=== PATIENT | female | born 1955 | race Caucasian/White ===

== ENCOUNTER 2019-11-13 08:25 | Inpatient (IN) | payer SELFPAY ==
[2019-11-13] MEDS ORDERED: PANTOPRAZOLE SODIUM 40 MG VIAL IV ONE (09:30)
[2019-11-13] MEDS ORDERED: MORPHINE SULFATE 10 MG/ML INJ IV ONE ×2 (09:31→12:01)
[2019-11-13] MEDS ORDERED: ONDANSETRON HCL INJ/PF 4 MG/2 ML SDV IV ONE (09:31)
[2019-11-13] MEDS ORDERED: NORMAL SALINE 500 ML IV ONE (09:32)
--- NOTE | 2019-11-13 09:46 | ER Document Report ---
ED GI/ - General Chief Complaint: Diarrhea Stated Complaint: DIARRHEA Time Seen by Provider: 11/13/19 09:03 Notes: CHIEF COMPLAINT: Upper abdominal pain for 1 week HPI: 64-year-old female presenting to the emergency department complaining of severe upper abdominal pain over the last week. Has also noticed dark tarry stools over the last 3 days. Patient reports decreased appetite with some nausea but no vomiting. No chest pain shortness of breath. Patient complains of generalized weakness over the last week ROS: See HPI - all other systems were reviewed and are otherwise negative Constitutional: no fever Eyes: no drainage, no blurred vision ENT: no runny nose, no sore throat Cardiovascular: no chest pain Resp: no SOB, no cough GI: no vomiting, positive diarrhea, positive abdominal pain : no dysuria Integumentary: no rash Allergy: no hives Musculoskeletal: no extremity pain or swelling Neurological: no numbness/tingling, no weakness MEDICATIONS: I agree with the patient medications as charted by the RN. ALLERGIES: I agree with the allergies as charted by the RN. PAST MEDICAL HISTORY/PAST SURGICAL HISTORY: Reviewed and agree as charted by RN. SOCIAL HISTORY: Reviewed and agree as charted by RN. FAMILY HISTORY: No significant familial comorbid conditions directly related to patient complaint EXAM: Reviewed vital signs as charted by RN. CONSTITUTIONAL: Alert and oriented and responds appropriately to questions. Ill-appearing; cachectic-nourished HEAD: Normocephalic; atraumatic EYES: PERRL; Conjunctivae clear, sclerae non-icteric ENT: normal nose; no rhinorrhea; moist mucous membranes but pale; pharynx without lesions noted, no uvula edema or deviation, no tonsillar hypertrophy, phonation normal NECK: Supple without meningismus; non-tender; no cervical lymphadenopathy, no masses CARD: Tachycardic; no murmurs, no clicks, no rubs, no gallops; symmetric distal pulses RESP: Normal chest excursion without splinting or tachypnea; breath sounds clear and equal bilaterally; no wheezes, no rhonchi, no rales, pulse oximetry 98% on room air not hypoxic ABD/GI: Normal bowel sounds; non-distended; soft, moderate tenderness to the epigastric region on palpation, no rebound, no guarding; no palpable org anomegaly or masses. Rectal: With female potato sorter present. Good rectal tone. Slight rash around t he rectum. There is dark tarry stool in the rectal vault that is Hemoccult positive no palpable masses BACK: The back appears normal and is non-tender to palpation, there is no CVA tenderness EXT: Normal ROM in all joints; non-tender to palpation; no cyanosis, no effusions, no edema SKIN: Pale color for age and race; warm; dry; good turgor; no acute lesions noted NEURO: Moves all extremities equally; Motor and sensory function intact PSYCH: The patient's mood and manner are appropriate. Grooming and personal hygiene are appropriate. MDM: 64-year-old tachycardic female presenting for upper abdominal plane suggest upper GI bleed, she has dark tarry stool that is Hemoccult positive. She has been taking BC powder to help with the pain of her upper abdomen. Reports has not been to a doctor in 40 years. Given the pain will obtain CT to evaluate for perforation or other surgical intervention needed but will plan to obtain screening labs including type and screen, will hydrate patient given the tachycardia. Plan to consult gastroenterology patient will likely need admission Past Medical History - Social History Smoking Status: Current Every Day Smoker Family History: Reviewed & Not Pertinent Physical Exam - Vital signs Vitals: Pulse Ox 98 11/13/19 09:00 Course - Re-evaluation Re-evalutation: 11/13/19 11:17 Patient is noted on CT to have probable metastatic cancer. Her troponin was 0.161. I did speak with Regulo flores the physician credit assistant for the hospitalist group. I did speak with Dr. Pennington the station supervisor. I did run the case by the station supervisor and he indicates that we should obtain a rapid COVID test and he will likely take the patient to the OR for endoscopy later today. Regulo flores indicates that Dr. Keller is the hospitalist taking the next call and I did speak with her I discussed the patient's history condition and findings. She states that she will not accept the patient until we have spoken with card iologist as well because of the mildly elevated troponin even though the patient has no chest pain or shortness of breath. 11/13/19 11:21 11/13/19 11:[address] Rosales, Cardiology. He indicates that he will follow the patient here in the hospital, there would be no intervention at this time. spoke with Dr. Keller, hospitalist. she will accept the patient 11/13/19 11:38 I did speak with the patient at length about her various diagnoses including the probability of metastatic cancer. Questions were answered. - Vital Signs Vital signs: Temp Pulse Resp BP Pulse Ox 98.0 F 126 H 20 133/87 H 98 11/13/19 09:17 11/13/19 09:01 11/13/19 09:01 11/13/19 10:30 11/13/19 09:01 - Laboratory Result Diagrams: 11/13/19 09:35 11/13/19 09:35 Laboratory results interpreted by me: 11/13/19 11/13/19 09:35 09:35 RBC 3.38 L Hgb 8.9 L Hct 27.5 L MCH 26.3 L RDW 18.1 H Lymph % (Auto) 8.7 L Absolute Neuts (auto) 8.4 H Seg Neutrophils % 81.6 H Sodium 131.4 L Chloride 94 L Creatinine 0.50 L Glucose 182 H AST 184 H ALT 52 H Alkaline Phosphatase 637 H Total Protein 6.1 L Albumin 3.3 L Discharge - Discharge Clinical Impression: Upper GI hemorrhage, Metastatic cancer, Elevated troponin I level Condition: Serious Disposition: ADMITTED INPATIENT Admitting Provider: Krishna (Hospitalist) Unit Admitted: [facility]
[2019-11-13 09:49] LABS: ABSOLUTE BASOPHILS # (AUTO) 0.1 10^3/uL (0.0-0.2); ABSOLUTE LYMPHOCYTES (AUTO) 0.9 10^3/uL (0.5-4.7); ABSOLUTE MONOCYTES (AUTO) 0.9 10^3/uL (0.1-1.4); ABSOLUTE NEUT (AUTO) 8.4 10^3/uL (1.7-8.2); BASOPHILS % (AUTO) 0.6 % (0-2); EOSINOPHILS % (AUTO) 0.1 % (0-6); HEMATOCRIT 27.5 % (36.0-47.0); HEMOGLOBIN 8.9 g/dL (12.0-15.5); LYMPHOCYTES % (AUTO) 8.7 % (13-45); MEAN CORPUSCULAR HEMOGLOBIN 26.3 pg (27.0-33.4); MEAN CORPUSCULAR HGB CONC 32.4 g/dL (32.0-36.0); MEAN CORPUSCULAR VOLUME 81 fl (80-97); PLATELET COUNT 395 10^3/uL (150-450); RED BLOOD COUNT 3.38 10^6/uL (3.72-5.28); RED CELL DISTRIBUTION WIDTH 18.1 % (11.5-14.0); SEGMENTED NEUTROPHILS % (AUTO) 81.6 % (42-78); TOTAL CELLS COUNTED % (AUTO) 100 %; WHITE BLOOD COUNT 10.3 10^3/uL (4.0-10.5)
[2019-11-13 09:54] LABS: INTERNATIONAL RATION (INR) 1.05; PROTHROMBIN TIME 13.7 SEC (11.4-15.4)
[2019-11-13 10:08] LABS: ALBUMIN 3.3 g/dL (3.5-5.0); ALKALINE PHOSPHATASE 637 U/L (38-126); ANION GAP 11 (5-19); ASPARTATE AMINO TRANSFERASE 184 U/L (14-36); BILIRUBIN,DIRECT 0.2 mg/dL (0.0-0.4); BILIRUBIN,TOTAL 0.7 mg/dL (0.2-1.3); BLOOD UREA NITROGEN 19 mg/dL (7-20); CARBON DIOXIDE 26 mmol/L (22-30); CHLORIDE 94 mmol/L (98-107); GLUCOSE 182 mg/dL (75-110); POTASSIUM 3.7 mmol/L (3.6-5.0); TOTAL PROTEIN 6.1 g/dL (6.3-8.2)
--- NOTE | 2019-11-13 11:01 | RADIOLOGY REPORT (SQ) ---
EXAM DESCRIPTION: CT ABD/PELVIS WITH IV ONLY IMAGES COMPLETED DATE/TIME: 11/13/2019 10:34 am REASON FOR STUDY: upper abd pain gi bleed COMPARISON: None. TECHNIQUE: CT scan of the abdomen and pelvis performed using helical scanning technique with dynamic intravenous contrast injection. No oral contrast. Images reviewed with lung, soft tissue, and bone windows. Reconstructed coronal and sagittal MPR images reviewed. Delayed images for evaluation of the urinary system also acquired. All images stored on PACS. All CT scanners at this facility use dose modulation, iterative reconstruction, and/or weight based d osing when appropriate to reduce radiation dose to as low as reasonably achievable (ALARA). [facility]: Dose Right [facility]: CareDose [facility]: Dose Right [facility]: Teradose 4D [facility]: MessageMe CONTRAST TYPE AND DOSE: contrast/concentration: Isovue 350.00 mg/ml; Total Contrast Delivered: 69.0 ml; Total Saline Delivered: 65.0 ml RENAL FUNCTION: BUN 19, creatinine 0.5 RADIATION DOSE: CT Rad equipment meets quality standard of care and radiation dose reduction techniq ues were employed. CTDIvol: 4.8 - 5.2 mGy. DLP: 522 mGy-cm.. LIMITATIONS: None. FINDINGS: LOWER CHEST: There is a mass in the right lower lobe anteriorly adjacent to the chest. Th ere is postobstructive airspace disease. Neoplasm is suspected. There is a ground-glass opacity in the left base posterior related to respiratory motion. LIVER: Numerous hepatic lesions consistent with metastatic disease. There is hepatomegaly. The live r measures over 23 cm in cranial caudal dimensions. SPLEEN: Normal size. No focal lesions. PANCREAS: No masses. No significant calcifications. No adjacent inflammation or peripancreatic fluid collections. Pancreatic duct not dilated. GALLBLADDER: No identified stones by CT criteria. No inflammatory changes to suggest cholecystitis. ADRENAL GLANDS: No significant masses or asymmetry. RIGHT KIDNEY AND URETER: No solid masses. No significant calcifications. No hydronephrosis or hyd roureter. LEFT KIDNEY AND URETER: No solid masses. No significant calcifications. No hydronephrosis or hydr oureter. AORTA AND VESSELS: No aneurysm. No dissection. Renal arteries, SMA, celiac without stenosis. RETROPERITONEUM: Scattered periaortic lymphadenopathy. Most likely metastatic. BOWEL AND PERITONEAL CAVITY: No masses or inflammatory changes. No free fluid or peritoneal masses. APPENDIX: Normal. PELVIS: No mass. No free fluid. Normal bladder. ABDOMINAL WALL: No masses. No hernias. BONES: Mild compression deformities at T11 and L2. There are lytic bone lesions at these levels cons istent with pathologic compression deformities. OTHER: No other significant finding. IMPRESSION: 1. Mass in the right lung base recommend cc chest for further evaluation. Neoplasm is thought to be most likely. 2. Hepatomegaly with widespread metastatic disease throughout the liver. 3. Aortic adenopathy suspicious for metastatic disease. 4. Probable bony metastatic disease. TECHNICAL DOCUMENTATION: JOB ID: [id number] Quality ID # [id number]: Final reports with documentation of one or more dose reduction techniques (e.g., Au tomated exposure control, adjustment of the mA and/or kV according to patient size, use of iterative reconstruction technique) 2010 [employer]- All Rights Reserved Reading location - IP/workstation name: [email or web address]
--- NOTE | 2019-11-13 13:15 | PDOC CONSULTATION ---
Consultation Consult Date: 11/13/19 Provider Consulted: SIMONE EDEN Consult reason:: black tarry stools History of Present Illness Admission Date/PCP: 11/13/19 11:54 History of Present Illness: BORIS MORALES is a 64 year old female I have been called to see this patient who present to the ED with GI bleeding consistent with melena accompanied by anemia a CT scan was done that showed probable metastatic disease work up needs to be done she will need admission and oncology should be contacted she will need an EGD to rule out possible gastric source I have asked the ED to get rapid Covid 19 testing done to facilitate her EGD to be done in the OR without need for intubation etc she will need to be admitted transfusion as needed start her on Protonix will need EGD after stabilization Social History Smoking Status: Current Every Day Smoker Electronic Cigarette use?: No Family History Family History: Reviewed & Not Pertinent Parental Family History Reviewed: Yes Children Family History Reviewed: Unknown Sibling(s) Family History Reviewed.: Unknown Review of Systems Constitutional: ABSENT: fever(s), headache(s), night sweats, weakness Eyes: ABSENT: visual disturbances Ears: ABSENT: hearing changes Nose, Mouth, and Throat: ABSENT: mouth pain, sore throat Respiratory: ABSENT: dyspnea, hemoptysis Gastrointestinal: PRESENT: nausea. ABSENT: hematochezia, melena Genitourinary: ABSENT: dysuria, hematuria Integumentary: ABSENT: lesions, pruritus Neurological: ABSENT: syncope, tingling, tremor(s), vertigo Endocrine: ABSENT: polydipsia, polyphagia, polyuria Hematologic/Lymphatic: ABSENT: easy bruising Physical Exam Vital Signs: Temp Pulse Resp BP Pulse Ox 98.0 F 126 H 20 133/87 H 98 11/13/19 09:17 11/13/19 09:01 11/13/19 09:01 11/13/19 10:30 11/13/19 09:01 Intake & Output 11/12/19 11/13/19 11/14/19 06:59 06:59 06:59 Intake Total 500 Balance 500 Weight 59.874 kg General appearance: PRESENT: mild distress, well-developed, well-nourished Head exam: PRESENT: atraumatic, normocephalic Eye exam: PRESENT: EOMI, PERRLA. ABSENT: nystagmus, scleral icterus Mouth exam: PRESENT: moist, neck supple Throat exam: PRESENT: tonsillogmegaly Neck exam: PRESENT: tenderness. ABSENT: meningismus, thyromegaly Respiratory exam: PRESENT: symmetrical, tachypnea. ABSENT: wheezes Cardiovascular exam: PRESENT: RRR, +S1, +S2 GI/Abdominal exam: PRESENT: normal bowel sounds, soft. ABSENT: Ayala's sign, organolmegaly, rebound, rigid Musculoskeletal exam: PRESENT: full ROM Neurological exam: PRESENT: alert, awake, CN II-XII grossly intact Skin exam: PRESENT: normal color. ABSENT: mottled, pallor, urticaria, vesicles Results Laboratory Results: 11/13/19 09:35 11/13/19 09:35 11/13/19 11/13/19 11/13/19 09:35 09:35 09:35 WBC 10.3 RBC 3.38 L Hgb 8.9 L Hct 27.5 L MCV 81 MCH 26.3 L MCHC 32.4 RDW 18.1 H Plt Count 395 Seg Neutrophils % 81.6 H Sodium 131.4 L Potassium 3.7 Chloride 94 L Carbon Dioxide 26 Anion Gap 11 BUN 19 Creatinine 0.50 L Est GFR ( Amer) > 60 Glucose 182 H Calcium 9.0 Total Bilirubin 0.7 AST 184 H Alkaline Phosphatase 637 H Total Protein 6.1 L Albumin 3.3 L Blood Type O POSITIVE Antibody Screen NEGATIVE 11/13/19 09:35 Troponin I 0.161 Impressions: Abdomen/Pelvis CT 11/13/19 09:31 IMPRESSION: 1. Mass in the right lung base recommend cc chest for further evaluation. Neoplasm is thought to be most likely. 2. Hepatomegaly with widespread metastatic disease throughout the liver. 3. Aortic adenopathy suspicious for metastatic disease. 4. Probable bony metastatic disease. Assessment & Plan - Diagnosis (1) Upper GI hemorrhage Plan: admit to the hospitalist service transfuse as necessary EGD once stabilized and Covid status known start on PPI Risks, benefits and alternative are explained further recommendations get oncology consult - Time Time Spent: 50 to 70 Minutes
[2019-11-13] MEDS ORDERED: ONDANSETRON 4 MG TAB.RAPDIS PO PRN (13:51)
[2019-11-13] MEDS ORDERED: OXYCODONE-ACETAMINOPHEN 5-325 MG TABLET PO PRN (13:51)
[2019-11-13] MEDS ORDERED: IPRATROPIUM/ALBUTEROL 0.5-2.5 MG/3 ML AMPUL NEB PRN (13:51)
[2019-11-13] MEDS ORDERED: ACETAMINOPHEN 325 MG TABLET PO PRN (13:51)
--- NOTE | 2019-11-13 15:04 | PDOC CONSULTATION ---
Consultation Consult Date: 11/13/19 Attending physician:: ANN MARIE CONTRERAS Provider Consulted: DEBBIE GOMEZ Consult reason:: Elevated troponin. History of Present Illness Admission Date/PCP: 11/13/19 11:54 History of Present Illness: BORIS MORALES is a 64 year old female without known cardiac history, no known medical history, smoker of 1 pack/day since age 16 years and no family history of premature coronary artery disease who is consulted to our service for evalu ation of elevated troponin. The patient had been having abdominal pain since June 2019. Her pain has gotten worse over time and approximately 3 days ago she noticed black/tarry stools. She came to the emergency room because her pain is now unbearable. Unfortunately her CT scan is very concerning for metastatic cancer. She does complain of some shortness of breath that she attributes to he r abdominal pain as it makes it worse but specifically denied chest pain, palpitations, syncope, presyncope and diaphoresis. She also denied hematemesis. Physical exam on 11/13/2019: GENERAL: Pleasant and conversational. Oriented x3 with normal mood. Not in acute distress. Well groomed and well developed. Pale, thin, appears chronically ill. HEENT: Normocephalic, atraumatic. Pupils equal. Sclerae anicteric. Oropharynx moist. NECK: No JVD. No carotid bruits. LUNGS: Clear to auscultation bilaterally. Normal respiratory effort without the use of accessory muscles or intercostal retractions. CARDIOVASCULAR: Mildly tachycardic. Regular rate and rhythm, normal S1 and S2 without murmurs, rubs, or gallops. PMI not displaced. ABDOMEN: Not examined due to pain. EXTREMITIES: No edema, no cyanosis, no clubbing. +2 pulses femoral and pedal pulses bilaterally. SKIN: No lesions or rashes. MUSCULOSKELETAL: No chest tenderness to palpation. NEUROLOGIC: Nonfocal. No gross sensory or motor deficits bilateral upper or lower extremities. Past Surgical History Past Surgical History: Reports: None Social History Smoking Status: Current Every Day Smoker Electronic Cigarette use?: No Frequency of Alcohol Use: None Hx Recreational Drug Use: No Drugs: None - Advance Directive Resuscitation Status: Full Code - She will like to consider resuscitation for no w she will be full code status Family History Family History: Malignancy - Mother had ovarian cancer and father from non- Hodgkin's lymphoma Parental Family History Reviewed: Yes Children Family History Reviewed: Yes Sibling(s) Family History Reviewed.: Yes Physical Exam Vital Signs: Temp Pulse Resp BP Pulse Ox 98.0 F 126 H 21 H 133/87 H 96 11/13/19 09:17 11/13/19 09:01 11/13/19 13:00 11/13/19 10:30 11/13/19 13:00 Intake & Output 11/12/19 11/13/19 11/14/19 06:59 06:59 06:59 Intake Total 500 Balance 500 Weight 59.874 kg Results Laboratory Results: 11/13/19 09:35 11/13/19 09:35 11/13/19 11/13/19 11/13/19 09:35 09:35 09:35 WBC 10.3 RBC 3.38 L Hgb 8.9 L Hct 27.5 L MCV 81 MCH 26.3 L MCHC 32.4 RDW 18.1 H Plt Count 395 Seg Neutrophils % 81.6 H Sodium 131.4 L Potassium 3.7 Chloride 94 L Carbon Dioxide 26 Anion Gap 11 BUN 19 Creatinine 0.50 L Est GFR ( Amer) > 60 Glucose 182 H Calcium 9.0 Total Bilirubin 0.7 AST 184 H Alkaline Phosphatase 637 H Total Protein 6.1 L Albumin 3.3 L Blood Type O POSITIVE Antibody Screen NEGATIVE 11/13/19 09:35 Troponin I 0.161 Impressions: Abdomen/Pelvis CT 11/13/19 09:31 IMPRESSION: 1. Mass in the right lung base recommend cc chest for further evaluation. Neoplasm is thought to be most likely. 2. Hepatomegaly with widespread metastatic disease throughout the liver. 3. Aortic adenopathy suspicious for metastatic disease. 4. Probable bony metastatic disease. 11/13/19 09:35 11/13/19 09:35 MCV 81 fl (80-97) 11/13/19 09:35 MCH 26.3 pg (27.0-33.4) L 11/13/19 09:35 MCHC 32.4 g/dL (32.0-36.0) 11/13/19 09:35 RDW 18.1 % (11.5-14.0) H 11/13/19 09:35 Seg Neutrophils % 81.6 % (42-78) H 11/13/19 09:35 Chloride 94 mmol/L (98-107) L 11/13/19 09:35 Carbon Dioxide 26 mmol/L (22-30) 11/13/19 09:35 Anion Gap 11 (5-19) 11/13/19 09:35 Est GFR ( Amer) > 60 (>60) 11/13/19 09:35 Glucose 182 mg/dL (75-110) H 11/13/19 09:35 Calcium 9.0 mg/dL (8.4-10.2) 11/13/19 09:35 Total Bilirubin 0.7 mg/dL (0.2-1.3) 11/13/19 09:35 AST 184 U/L (14-36) H 11/13/19 09:35 Alkaline Phosphatase 637 U/L (38-126) H 11/13/19 09:35 Total Protein 6.1 g/dL (6.3-8.2) L 11/13/19 09:35 Albumin 3.3 g/dL (3.5-5.0) L 11/13/19 09:35 Blood Type O POSITIVE 11/13/19 09:35 Antibody Screen NEGATIVE 11/13/19 09:35 11/13/19 09:35 Troponin I 0.161 Assessment & Plan - Diagnosis (1) Elevated troponin I level Is this a current diagnosis for this admission?: Yes Plan: Although the patient has risk factors for coronary artery disease, her presentation is not consistent with acute coronary syndrome but likely a type II myocardial infarction secondary to her tachycardia and anemia. Unfortunately she appears to have metastatic cancer with a mass in the lung as well as multiple lesions in the liver and bone. To complicate matters, she has a GI bleed therefore she is not a candidate for anticoagulation or any other invasive cardiovascular approaches. Fortunately enough, she is hemodynamically stable and free of angina and angina equivalents. Recommendations: -Cardiac telemetry. -Supportive measures. -Continue to trend cardiac troponins. -Echocardiogram to assess for structural heart disease and regional wall motion abnormalities. -We will continue to follow with you. (2) GI bleed Qualifiers: GI bleed type/associated pathology: melena Qualified Code(s): K92.1 - Melena Is this a current diagnosis for this admission?: Yes Plan: The patient is anemic and with black tarry/stools consistent with a GI bleed. She had already been evaluated by the GI service and will undergo colonoscopy as well as EGD in the near future. Further management of recommendations per GI team.
[2019-11-13] MEDS: OXYCODONE-ACETAMINOPHEN 5-325 MG TABLET PO PRN (17:14)
[2019-11-13] MEDS: MORPHINE SULFATE 10 MG/ML INJ IV PRN (20:05)
--- NOTE | 2019-11-13 20:43 | XCELERA REPORT ---
[address] [address] Transthoracic Echocardiogram Report Name: BORIS MORALES Age: 64 yrs Gender: Female : 1955 Patient Status: Inpatient Patient Location: [address] [place] [address] Study Date: 11/13/2019 05:19 PM Height: 70 in Weight: 132 lb BSA: 1.7 m2 Procedure: A complete two-dimensional transthoracic echocardiogram was performed (2D, M-mode, spectral and color flow Doppler). The study was technically difficult with many images being suboptimal in quality. Images from the parasternal window were difficult to obtain and are suboptimal in quality. Reason For Study: Type II OK Ordering Physician: DEBBIE GOMEZ Performed By: Gabriela Piedra Interpretation Summary The patient was in sinus tachycardia during portions of the study. The left ventricle is normal in size, thickness and function. Left ventricle is hyperdynamic. The Ejection Fraction estimate is >70%. Doppler measurements suggest impaired left ventricular relaxation, which is associated with grade I/IV or mild diastolic dysfunction. The left ventricular wall motion is normal. Mild MAC without stenosis. Mild MR, mild AI. No accurate doppler interrogation of the tricuspid valve was possible as the valve was not well visualized. Mildly calcified aortic valve. Mild aortic stenosis with a peak velocity of 2.5 m/s and mean gradient of 12 mmHg. No prior studies for comparison. MMode/2D Measurements & Calculations RVDd: 3.0 cm LVIDd: 4.4 cm FS: 31.2 % Ao root diam: 3.0 cm IVSd: 1.0 cm LVIDs: 3.0 cm EDV(Teich): 88.7 ml Ao root area: 7.1 cm2 LVPWd: 0.99 cm ESV(Teich): 36.2 ml LA dimension: 2.8 cm EF(Teich): 59.2 % LVOT diam: 1.8 cm LVOT area: 2.5 cm2 Doppler Measurements & Calculations MV E max yordy: MV P1/2t max yordy: Ao V2 max: LV V1 max P.0 cm/sec 118.7 cm/sec 251.9 cm/sec 11.8 mmHg MV A max yordy: MV P1/2t: 38.4 msec Ao max PG: LV V1 mean P.3 cm/sec MVA(P1/2t): 5.7 cm2 25.4 mmHg 6.4 mmHg MV E/A: 0.87 MV dec slope: Ao V2 mean: LV V1 max: 165.9 cm/sec 171.5 cm/sec 906.2 cm/sec2 Ao mean PG: LV V1 mean: MV dec time: 0.15 sec 12.3 mmHg 117.4 cm/sec Ao V2 VTI: 44.2 cm LV V1 VTI: 32.5 cm SAIRA(I,D): 1.8 cm2 SAIRA(V,D): 1.7 cm2 SV(LVOT): 80.8 ml PA V2 max: MV P1/2t-pr_phl: 82.1 cm/sec 38.4 msec PA max P.7 mmHg Left Ventricle The left ventricle is normal in size, thickness and function. Left ventricle is hyperdynamic. The Ejection Fraction estimate is >70%. Doppler measurements suggest impaired left ventricular relaxation, which is associated with grade I/IV or mild diastolic dysfunction. The left ventricular wall motion is normal. Right Ventricle The right ventricle is normal in size and function. There is mild to moderate right ventricular hypertrophy. The right ventricular systolic function is normal. Atria The right atrium is normal. The left atrial size is normal. The interatrial septum is intact with no evidence for an atrial septal defect. Mitral Valve There is mild mitral annular calcification. There is no evidence of mitral valve prolapse. There is no mitral valve stenosis. There is a mild amount of mitral regurgitation. Aortic Valve The aortic valve is mildly calcified. The aortic valve opens well. There is mild aortic stenosis. There is a mild amount of aortic regurgitation. Tricuspid Valve The tricuspid valve is not well visualized secondary to technical limitations. There is no tricuspid valve prolapse. There is no tricuspid stenosis. Doppler interrogation inadequate as the valve was not well visualized. Pulmonic Valve The pulmonic valve is not well visualized. There is no pulmonic valvular stenosis. There is no pulmonic valvular regurgitation. Effusions There is no pericardial effusion. There is no pleural effusion. : DEBBIE GOMEZ, Debbie
[2019-11-13] MEDS: PANTOPRAZOLE SODIUM 40 MG VIAL IV SCH (21:04)
[2019-11-14 05:21] LABS: MEAN CORPUSCULAR HEMOGLOBIN 26.4 pg (27.0-33.4); MEAN CORPUSCULAR HGB CONC 32.6 g/dL (32.0-36.0); MEAN CORPUSCULAR VOLUME 81 fl (80-97); PLATELET COUNT 346 10^3/uL (150-450); RED BLOOD COUNT 2.97 10^6/uL (3.72-5.28); WHITE BLOOD COUNT 11.3 10^3/uL (4.0-10.5)
[2019-11-14 05:26] LABS: HEMOGLOBIN 7.8 g/dL (12.0-15.5)
[2019-11-14 05:42] LABS: ANION GAP 8 (5-19); BLOOD UREA NITROGEN 16 mg/dL (7-20); CALCIUM 8.9 mg/dL (8.4-10.2); CARBON DIOXIDE 26 mmol/L (22-30); CHLORIDE 98 mmol/L (98-107); GLUCOSE 95 mg/dL (75-110); POTASSIUM 4.1 mmol/L (3.6-5.0)
--- NOTE | 2019-11-14 08:39 | EKG REPORT ---
SEVERITY:- OTHERWISE NORMAL ECG - SINUS TACHYCARDIA : Confirmed by: Amina Guillen 14-Nov-2019 08:38:59
--- NOTE | 2019-11-14 09:01 | PDOC CONSULTATION ---
Consultation Consult Date: 11/14/19 Attending physician:: ANN MARIE CONTRERAS Provider Consulted: EUNICE ETIENNE Consult reason:: Liver lesions, lung lesions, anemia History of Present Illness Admission Date/PCP: 11/13/19 11:54 Patient complains of: SOB, CP, weakness History of Present Illness: BORIS MORALES is a 64 year old female presenting per notes with h/o weakness, hematochezia, ultimately was having BRBPR and that's what brought her in, has 15# wt loss, poor po intake and RUQ and LUQ pain, was having diarrhea also, feeling poorly x 4 months now. Found to have CT a/p w/ multiple liver lesions, and R lung lesion. GI has been consulted, recommended need for scope soon but given COVID restrictions, did not feel it has to be done emergently. Past Medical History Cardiac Medical History: Reports: None Psychiatric Medical History: Denies: Depression Past Surgical History Past Surgical History: Reports: None Social History Smoking Status: Current Every Day Smoker Cigarettes Packs Per Day: 1 Electronic Cigarette use?: No Number of Years Smokin Last Time Smoked: t Frequency of Alcohol Use: None Hx Recreational Drug Use: No Drugs: None Hx Prescription Drug Abuse: No - Advance Directive Resuscitation Status: Full Code - She will like to consider resuscitation for now she will be full code status Family History Family History: Malignancy - Mother had ovarian cancer and father from non- Hodgkin's lymphoma Parental Family History Reviewed: Yes Children Family History Reviewed: Yes Sibling(s) Family History Reviewed.: Yes Medication/Allergy Home Medications: Aspirin/Caffeine [Bc Powder Packet] 1 pkt PO TIDP PRN 11/13/19 Allergies/Adverse Reactions: No Known Allergies Allergy (Verified 11/13/19 15:08) Physical Exam Vital Signs: Temp Pulse Resp BP Pulse Ox 98.2 F 108 H 16 121/66 92 11/14/19 03:58 11/14/19 08:03 11/14/19 08:03 11/14/19 03:58 11/14/19 08:03 Intake & Output 11/13/19 11/14/19 11/15/19 06:59 06:59 06:59 Intake Total 1115 Balance 1115 Weight 57.5 kg Results Laboratory Results: 11/14/19 05:09 11/14/19 05:09 11/13/19 11/13/19 11/13/19 09:35 09:35 09:35 WBC 10.3 RBC 3.38 L Hgb 8.9 L Hct 27.5 L MCV 81 MCH 26.3 L MCHC 32.4 RDW 18.1 H Plt Count 395 Seg Neutrophils % 81.6 H Sodium 131.4 L Potassium 3.7 Chloride 94 L Carbon Dioxide 26 Anion Gap 11 BUN 19 Creatinine 0.50 L Est GFR ( Amer) > 60 Glucose 182 H Calcium 9.0 Magnesium Total Bilirubin 0.7 AST 184 H Alkaline Phosphatase 637 H Total Protein 6.1 L Albumin 3.3 L Blood Type O POSITIVE Antibody Screen NEGATIVE 11/14/19 11/14/19 05:09 05:09 WBC 11.3 H RBC 2.97 L Hgb 7.8 L Hct 24.0 L MCV 81 MCH 26.4 L MCHC 32.6 RDW 18.0 H Plt Count 346 Seg Neutrophils % Sodium 131.5 L Potassium 4.1 Chloride 98 Carbon Dioxide 26 Anion Gap 8 BUN 16 Creatinine 0.45 L Est GFR ( Amer) > 60 Glucose 95 Calcium 8.9 Magnesium 2.0 Total Bilirubin AST Alkaline Phosphatase Total Protein Albumin Blood Type Antibody Screen 11/13/19 11/13/19 11/13/19 09:35 14:57 20:07 Troponin I 0.161 0.166 0.152 Impressions: Abdomen/Pelvis CT 11/13/19 09:31 IMPRESSION: 1. Mass in the right lung base recommend cc chest for further evaluation. Neoplasm is thought to be most likely. 2. Hepatomegaly with widespread metastatic disease throughout the liver. 3. Aortic adenopathy suspicious for metastatic disease. 4. Probable bony metastatic disease. Status: Image reviewed by me Assessment & Plan - Diagnosis (1) Metastatic cancer Is this a current diagnosis for this admission?: Yes Plan: Does appear to have metastatic disease. Ordered CT chest and CT guided liver bx today. Had discussion w/ pt, hospitalist team and nursing about plans. Probable primary is lung but colon primary possible also w/ hematochezia/GI complaints so will need colonoscopy/egd at some point. (2) Anemia Qualifiers: Anemia type: iron deficiency Iron deficiency anemia type: chronic blood loss Qualified Code(s): D50.0 - Iron deficiency anemia secondary to blood loss (chronic) Is this a current diagnosis for this admission?: Yes Plan: Most likely going to be iron def from blood loss anemia. Iron studies/B12/folate sent today. Gave orders for 2 units PRBC also. - Time Time Spent: Greater than 70 Minutes
--- NOTE | 2019-11-14 09:26 | PDOC H&P ---
History of Present Illness Admission Date/PCP: 11/13/19 11:54 Patient complains of: presents emergency room with abdominal pain which apparently has been ongoing for about 3 months. She also complained of back pain. She started noticing dark stool about 3 days ago. She decided to come to the emergency room as the pain was excruciating and she could not tolerate it anymore. History of Present Illness: BORIS MORALES is a 64 year old female As part of our work-up in the emergency room patient had a CT scan of the abdomen done which revealed a mass in the right lung base with neoplasm thought to be most likely. She also has hepatomegaly with widespread metastatic disease throughout the liver as well as aortic adenopathy and probable bony metastatic disease. Patient does admit to generalized aches and pain which has been progressively getting worse over the last 5 months or so. She is also lost weight. She has a 35+ year smoking history, smoking 1 pack daily. Patient also has not really seen a physician in years. She said she is really had no need to. She did not get her symptoms checked out earlier as she really did not know what was going on. Patient denied any overt bleeding except for the dark stool that she noticed 3 days ago according to her. Most see the accompanying planes appear to be the back pain as well as a abdominal pain to a lesser degree and a generalized pain. Hemoglobin of 8.7 today and noted also to have an elevated troponin. She also complains of some chest pain which waxes and wanes currently chest pain-free she has been seen by personal financial representative and plan is for an EGD once stabilized. Cardiology consultation has also been sought due to her elevated troponin which likely is due to her anemia. Patient also tells me that she sometimes gets palpitations although she is currently in sinus tachycardia. Oncology consult will also be obtained Past Medical History Medical History: None Past Surgical History Past Surgical History: Reports: None Social History Information Source: Patient Smoking Status: Current Every Day Smoker Electronic Cigarette use?: No Frequency of Alcohol Use: None Hx Recreational Drug Use: No Drugs: None - Advance Directive Resuscitation Status: Full Code - She will like to consider resuscitation for now she will be full code status Family History Family History: Malignancy - Mother had ovarian cancer and father from non- Hodgkin's lymphoma Parental Family History Reviewed: Yes Children Family History Reviewed: No Sibling(s) Family History Reviewed.: No Medication/Allergy Home Medications: Aspirin/Caffeine [Bc Powder Packet] 1 pkt PO TIDP PRN 11/13/19 Allergies/Adverse Reactions: No Known Allergies Allergy (Verified 11/13/19 15:08) Review of Systems All systems: reviewed and no additional remarkable complaints except as stated Breasts: PRESENT: other - No breast mass Cardiovascular: PRESENT: chest pain, palpitations. ABSENT: orthropnea Respiratory: ABSENT: cough, dyspnea, hemoptysis Gastrointestinal: PRESENT: abdominal pain. ABSENT: nausea, vomiting Genitourinary: ABSENT: dysuria, hematuria Musculoskeletal: PRESENT: back pain Neurological: PRESENT: as per HPI Endocrine: PRESENT: as per HPI Physical Exam Vital Signs: Temp Pulse Resp BP Pulse Ox 98.0 F 126 H 21 H 133/87 H 96 11/13/19 09:17 11/13/19 09:01 11/13/19 13:00 11/13/19 10:30 11/13/19 13:00 Intake & Output 11/12/19 11/13/19 11/14/19 06:59 06:59 06:59 Intake Total 500 Balance 500 Weight 59.874 kg General appearance: PRESENT: no acute distress, other - Somewhat chronically ill looking but not toxic Head exam: PRESENT: atraumatic, normocephalic Respiratory exam: PRESENT: clear to auscultation erasmo, unlabored. ABSENT: rhonchi Cardiovascular exam: PRESENT: +S1, +S2, tachycardia. ABSENT: bradycardia Breast: ABSENT: Tenderness, Mass/Lump GI/Abdominal exam: PRESENT: organolmegaly, tenderness - vague. ABSENT: ascites Rectal exam: PRESENT: deferred Neurological exam: PRESENT: alert, awake, oriented to person, oriented to place, oriented to time, oriented to situation, CN II-XII grossly intact. ABSENT: motor sensory deficit Results Laboratory Results: 11/13/19 09:35 11/13/19 09:35 11/13/19 11/13/19 11/13/19 09:35 09:35 09:35 WBC 10.3 RBC 3.38 L Hgb 8.9 L Hct 27.5 L MCV 81 MCH 26.3 L MCHC 32.4 RDW 18.1 H Plt Count 395 Seg Neutrophils % 81.6 H Sodium 131.4 L Potassium 3.7 Chloride 94 L Carbon Dioxide 26 Anion Gap 11 BUN 19 Creatinine 0.50 L Est GFR ( Amer) > 60 Glucose 182 H Calcium 9.0 Total Bilirubin 0.7 AST 184 H Alkaline Phosphatase 637 H Total Protein 6.1 L Albumin 3.3 L Blood Type O POSITIVE Antibody Screen NEGATIVE 11/13/19 09:35 Troponin I 0.161 EKG Comments: Sinus tachycardia Impressions: Abdomen/Pelvis CT 11/13/19 09:31 IMPRESSION: 1. Mass in the right lung base recommend cc chest for further evaluation. Neoplasm is thought to be most likely. 2. Hepatomegaly with widespread metastatic disease throughout the liver. 3. Aortic adenopathy suspicious for metastatic disease. 4. Probable bony metastatic disease. Assessment and Plan - Diagnosis (1) Anemia Qualifiers: Anemia type: iron deficiency Iron deficiency anemia type: chronic blood loss Qualified Code(s): D50.0 - Iron deficiency anemia secondary to blood loss (chronic) Is this a current diagnosis for this admission?: Yes Plan: Likely secondary to malignancy. GI has been consulted. Patient will benefit from endoscopy. At this point she does not need any transfusion but will continue to monitor and transfuse as needed (2) Elevated troponin I level Is this a current diagnosis for this admission?: Yes Plan: Will monitor troponin. EKG shows no acute changes. Cardiology has been consulted (3) Metastatic cancer Is this a current diagnosis for this admission?: Yes Plan: From image findings patient appears to have diffuse malignancy unfortunately. Oncology has been consulted and will follow-up with their recommendations (4) Upper GI hemorrhage Is this a current diagnosis for this admission?: Yes Plan: Likely chronic and related to underlying medical condition - Time Time Spent with patient: 35 or more minutes Medications reviewed and adjusted accordingly: Yes Anticipated discharge: Home - Inpatient Certification Based on my medical assessment, after consideration of the patient's comorbidities, presenting symptoms, or acuity I expect that the services needed warrant INPATIENT care.: Yes Medical Necessity: Risk of Complication if Not Cared For in Hospital, Risk of Diagnosis Which Will Require Inpatient Eval/Care/Monitoring
[2019-11-14] MEDS: DOCUSATE SODIUM 100 MG CAPSULE PO SCH (10:05)
[2019-11-14] MEDS: PANTOPRAZOLE SODIUM 40 MG VIAL IV SCH ×2 (10:09→22:13)
[2019-11-14] MEDS: MORPHINE SULFATE 10 MG/ML INJ IV PRN (10:09)
[2019-11-14 11:10] LABS: ABSOLUTE RETICS # 0.131 10^6/uL (0.028-0.122)
[2019-11-14 11:22] LABS: INTERNATIONAL RATION (INR) 1.11; PROTHROMBIN TIME 14.3 SEC (11.4-15.4)
[2019-11-14 11:23] LABS: PARTIAL THROMBOPLASTIN TIME 29.7 SEC (23.5-35.8)
--- NOTE | 2019-11-14 11:24 | PDOC PROGRESS REPORT ---
Subjective Progress Note for:: 11/14/19 Subjective:: BORIS MORALES is a 64 year old female without known cardiac history, no known medical history, smoker of 1 pack/day since age 16 years and no family history of premature coronary artery disease who is consulted to our service for evaluation of elevated troponin. The patient had been having abdominal pain since June 2019. Her pain has gotten worse over time and approximately 3 days ago she noticed black/tarry stools. She came to the emergency room because her pain is now unbearable. Unfortunately her CT scan is very concerning for metastatic cancer. She does complain of some shortness of breath that she attributes to her abdominal pain as it makes it worse but specifically denied chest pain, palpitations, syncope, presyncope and diaphoresis. She also denied hematemesis. 11/14/2019: The patient is found sitting up at the edge of her bed eating breakfast. She continues to deny chest pain, shortness of breath, ABDALLA, PND, lower extremity edema, palpitations, syncope and presyncope. Her telemetry demonstrated sinus tachycardia with 2 episodes of supraventricular tachycardia lasting several seconds. Physical exam on 11/14/2019: GENERAL: Pleasant and conversational. Oriented x3 with normal mood. Not in acute distress. Well groomed and well developed. Pale, thin, appears chronically ill. HEENT: Normocephalic, atraumatic. Pupils equal. Sclerae anicteric. Oropharynx moist. NECK: No JVD. No carotid bruits. LUNGS: Clear to auscultation bilaterally. Normal respiratory effort without the use of accessory muscles or intercostal retractions. CARDIOVASCULAR: Mildly tachycardic. Regular rate and rhythm, normal S1 and S2 without murmurs, rubs, or gallops. PMI not displaced. ABDOMEN: Not examined due to pain. EXTREMITIES: No edema, no cyanosis, no clubbing. +2 pulses femoral and pedal pulses bilaterally. SKIN: No lesions or rashes. MUSCULOSKELETAL: No chest tenderness to palpation. NEUROLOGIC: Nonfocal. No gross sensory or motor deficits bilateral upper or lower extremities. Cardiac studies: Echocardiogram on 11/13/2019: -The patient is in sinus tachycardia during portions of the study. -LV is hyperdynamic. -EF greater than 70%. -Grade 1 diastolic dysfunction. -Normal wall motion. -Mild MAC without stenosis. -Mild MR, mild AI. -Mild aortic stenosis with a peak velocity of 2.5 m/s and mean gradient of 12 mmHg. Reason For Visit: ANEMIA,GI BLEED, POSSIBLE METASTATIC LUNG CANCER Physical Exam Vital Signs: Temp Pulse Resp BP Pulse Ox 98.2 F 68 16 121/66 91 L 11/14/19 03:58 11/14/19 03:58 11/14/19 03:58 11/14/19 03:58 11/14/19 03:58 Intake & Output 11/13/19 11/14/19 11/15/19 06:59 06:59 06:59 Intake Total 1115 Balance 1115 Weight 57.5 kg Results Laboratory Results: 11/14/19 05:09 11/14/19 05:09 11/13/19 11/13/19 11/13/19 09:35 09:35 09:35 WBC 10.3 RBC 3.38 L Hgb 8.9 L Hct 27.5 L MCV 81 MCH 26.3 L MCHC 32.4 RDW 18.1 H Plt Count 395 Seg Neutrophils % 81.6 H Sodium 131.4 L Potassium 3.7 Chloride 94 L Carbon Dioxide 26 Anion Gap 11 BUN 19 Creatinine 0.50 L Est GFR ( Amer) > 60 Glucose 182 H Calcium 9.0 Magnesium Total Bilirubin 0.7 AST 184 H Alkaline Phosphatase 637 H Total Protein 6.1 L Albumin 3.3 L Blood Type O POSITIVE Antibody Screen NEGATIVE 11/14/19 11/14/19 05:09 05:09 WBC 11.3 H RBC 2.97 L Hgb 7.8 L Hct 24.0 L MCV 81 MCH 26.4 L MCHC 32.6 RDW 18.0 H Plt Count 346 Seg Neutrophils % Sodium 131.5 L Potassium 4.1 Chloride 98 Carbon Dioxide 26 Anion Gap 8 BUN 16 Creatinine 0.45 L Est GFR ( Amer) > 60 Glucose 95 Calcium 8.9 Magnesium 2.0 Total Bilirubin AST Alkaline Phosphatase Total Protein Albumin Blood Type Antibody Screen 11/13/19 11/13/19 11/13/19 09:35 14:57 20:07 Troponin I 0.161 0.166 0.152 Impressions: Abdomen/Pelvis CT 11/13/19 09:31 IMPRESSION: 1. Mass in the right lung base recommend cc chest for further evaluation. Neoplasm is thought to be most likely. 2. Hepatomegaly with widespread metastatic disease throughout the liver. 3. Aortic adenopathy suspicious for metastatic disease. 4. Probable bony metastatic disease. 11/14/19 05:09 11/14/19 05:09 MCV 81 fl (80-97) 11/14/19 05:09 MCH 26.4 pg (27.0-33.4) L 11/14/19 05:09 MCHC 32.6 g/dL (32.0-36.0) 11/14/19 05:09 RDW 18.0 % (11.5-14.0) H 11/14/19 05:09 Seg Neutrophils % 81.6 % (42-78) H 11/13/19 09:35 Chloride 98 mmol/L (98-107) 11/14/19 05:09 Carbon Dioxide 26 mmol/L (22-30) 11/14/19 05:09 Anion Gap 8 (5-19) 11/14/19 05:09 Est GFR ( Amer) > 60 (>60) 11/14/19 05:09 Glucose 95 mg/dL (75-110) 11/14/19 05:09 Calcium 8.9 mg/dL (8.4-10.2) 11/14/19 05:09 Magnesium 2.0 mg/dL (1.6-2.3) 11/14/19 05:09 Total Bilirubin 0.7 mg/dL (0.2-1.3) 11/13/19 09:35 AST 184 U/L (14-36) H 11/13/19 09:35 Alkaline Phosphatase 637 U/L (38-126) H 11/13/19 09:35 Total Protein 6.1 g/dL (6.3-8.2) L 11/13/19 09:35 Albumin 3.3 g/dL (3.5-5.0) L 11/13/19 09:35 Blood Type O POSITIVE 11/13/19 09:35 Antibody Screen NEGATIVE 11/13/19 09:35 11/13/19 11/13/19 11/13/19 09:35 14:57 20:07 Troponin I 0.161 0.166 0.152 Current Medication List Generic Name Dose Route Start Last Admin Trade Name Freq PRN Reason Stop Dose Admin Acetaminophen 650 mg 11/13/19 13:51 Tylenol 325 Mg Tablet PO 12/13/19 13:50 Q4HP PRN FOR PAIN SCALE 1-2 Albuterol/Ipratropium 3 ml 11/13/19 13:51 Duoneb 3 Ml Ampul NEB 12/13/19 13:50 RTQ6HP PRN SHORTNESS OF BREATH Docusate Sodium 100 mg 11/14/19 10:00 Colace 100 Mg Capsule PO 12/14/19 09:59 DAILY MARYA Morphine Sulfate 3 mg 11/13/19 15:29 11/13/19 20:05 Morphine 10 Mg/Ml Inj IV 11/20/19 15:28 3 mg Q4HP PRN Administration FOR PAIN SCALE 3-4 Ondansetron HCl 4 mg 11/13/19 13:51 Zofran Odt 4 Mg Tablet PO 12/13/19 13:50 Q6HP PRN FOR NAUSEA/VOMITING Oxycodone/Acetaminophen 1 tab 11/13/19 15:30 11/13/19 17:14 Percocet 5-325 Mg Tablet PO 11/20/19 13:50 1 tab Q6HP PRN Administration FOR PAIN SCALE 2-3 Pantoprazole Sodium 40 mg 11/13/19 22:00 11/13/19 21:04 Protonix Iv Inj 40 Mg Vial IV 11/20/19 21:59 Not Given Q12 MARYA Zolpidem Tartrate 5 mg 11/13/19 13:51 Ambien 5 Mg Tablet PO 11/20/19 13:50 HSP PRN SLEEP OR INSOMNIA Discontinued Medications Generic Name Dose Route Start Last Admin Trade Name Freq PRN Reason Stop Dose Admin Sodium Chloride 500 mls @ 0 mls/hr 11/13/19 09:32 11/13/19 11:01 Nacl 0.9% 500 Ml Iv Soln IV 11/13/19 09:33 Infused NOW ONE Infusion Wide Open Morphine Sulfate 2 mg 11/13/19 09:31 11/13/19 10:23 Morphine 10 Mg/Ml Inj IV 11/13/19 09:32 2 mg NOW ONE Administration Morphine Sulfate 2 mg 11/13/19 12:01 11/13/19 12:24 Morphine 10 Mg/Ml Inj IV 11/13/19 12:02 2 mg NOW ONE Administration Ondansetron HCl 4 mg 11/13/19 09:31 11/13/19 10:28 Zofran Inj/Pf 4 Mg/2 Ml Sdv IV 11/13/19 09:32 4 mg NOW ONE Administration Oxycodone/Acetaminophen 1 tab 11/13/19 13:51 Percocet 5-325 Mg Tablet PO 11/20/19 13:50 Q6HP PRN FOR PAIN SCALE 3-4 Pantoprazole Sodium 80 mg 11/13/19 09:30 11/13/19 10:28 Protonix Iv Inj 40 Mg Vial IV 11/13/19 09:31 80 mg .BOLUS (IVBAG) ONE Administration Assessment & Plan - Diagnosis (1) Elevated troponin I level Is this a current diagnosis for this admission?: Yes Plan: Although the patient has risk factors for coronary artery disease, her presentation is not consistent with acute coronary syndrome but likely a type II myocardial infarction secondary to her tachycardia and anemia. She has remained hemodynamically stable and without angina or anginal equivalents. She continues to be mildly tachycardic and with 2 episodes of SVT since yesterday. Her echocardiogram was most remarkable for a normal ejection fraction and mild aor tic stenosis. Recommendations: -Continue with cardiac telemetry. -Start metoprolol succinate 25 mg p.o. daily. -Supportive measures. -Continue to trend cardiac troponins. -Continue to hold aspirin. -We will continue to follow with you. (2) GI bleed Qualifiers: GI bleed type/associated pathology: melena Qualified Code(s): K92.1 - Melena Plan: The patient is now followed by GI and oncology teams. (3) Aortic stenosis, mild Plan: The patient has mild aortic stenosis with a peak velocity of 2.5 m/s and a mean gradient of 12 mmHg. There is no indication for surgical intervention at this time. She remains asymptomatic. Recommendations: -Continue with clinical follow-up. -Repeat echocardiogram in 2 to 3 years or sooner if any symptoms develop.
[2019-11-14 11:29] LABS: IRON(TIBC) 18.3 ug/dL (37-170)
--- NOTE | 2019-11-14 12:41 | PDOC PROGRESS REPORT ---
Subjective Progress Note for:: 11/14/19 Subjective:: Complaining of generalized pain Reason For Visit: ANEMIA,GI BLEED, POSSIBLE METASTATIC LUNG CANCER Physical Exam Vital Signs: Temp Pulse Resp BP Pulse Ox 98.2 F 108 H 16 121/66 92 11/14/19 03:58 11/14/19 08:03 11/14/19 08:03 11/14/19 03:58 11/14/19 08:03 Intake & Output 11/13/19 11/14/19 11/15/19 06:59 06:59 06:59 Intake Total 1115 Balance 1115 Weight 57.5 kg General appearance: PRESENT: no acute distress, thin Head exam: PRESENT: atraumatic, normocephalic Eye exam: PRESENT: conjunctiva pink, EOMI, PERRLA. ABSENT: scleral icterus Ear exam: PRESENT: normal external ear exam Mouth exam: PRESENT: moist, tongue midline Neck exam: ABSENT: carotid bruit, JVD, lymphadenopathy, thyromegaly Respiratory exam: PRESENT: clear to auscultation erasmo. ABSENT: rales, rhonchi, wheezes Cardiovascular exam: PRESENT: RRR, +S1, +S2. ABSENT: diastolic murmur, rubs, systolic murmur Pulses: PRESENT: normal dorsalis pedis pul Vascular exam: PRESENT: normal capillary refill GI/Abdominal exam: PRESENT: normal bowel sounds, organolmegaly - Hepatomegaly, soft, tenderness - Generalized mild. ABSENT: distended, guarding, mass, rebound Rectal exam: PRESENT: deferred Extremities exam: PRESENT: full ROM. ABSENT: calf tenderness, clubbing, pedal edema Neurological exam: PRESENT: alert, awake, oriented to person, oriented to place, oriented to time, oriented to situation, CN II-XII grossly intact. ABSENT: motor sensory deficit Psychiatric exam: PRESENT: appropriate affect, normal mood. ABSENT: homicidal ideation, suicidal ideation Skin exam: PRESENT: dry, intact, warm. ABSENT: cyanosis, rash Results Laboratory Results: 11/14/19 05:09 11/14/19 05:09 11/13/19 11/14/19 11/14/19 09:35 05:09 05:09 WBC 11.3 H RBC 2.97 L Hgb 7.8 L Hct 24.0 L MCV 81 MCH 26.4 L MCHC 32.6 RDW 18.0 H Plt Count 346 Retic Count (auto) Sodium 131.5 L Potassium 4.1 Chloride 98 Carbon Dioxide 26 Anion Gap 8 BUN 16 Creatinine 0.45 L Est GFR ( Amer) > 60 Glucose 95 Calcium 8.9 Magnesium 2.0 Transferrin Blood Type O POSITIVE Antibody Screen NEGATIVE 11/14/19 11/14/19 10:52 10:52 WBC RBC Hgb Hct MCV MCH MCHC RDW Plt Count Retic Count (auto) 4.10 H Sodium Potassium Chloride Carbon Dioxide Anion Gap BUN Creatinine Est GFR ( Amer) Glucose Calcium Magnesium Transferrin 260.80 Blood Type Antibody Screen 11/13/19 11/13/19 11/13/19 09:35 14:57 20:07 Troponin I 0.161 0.166 0.152 Impressions: Abdomen/Pelvis CT 11/13/19 09:31 IMPRESSION: 1. Mass in the right lung base recommend cc chest for further remberto luation. Neoplasm is thought to be most likely. 2. Hepatomegaly with widespread metastatic disease throughout the liver. 3. Aortic adenopathy suspicious for metastatic disease. 4. Probable bony metastatic disease. Assessment and Plan - Diagnosis (1) Anemia Qualifiers: Anemia type: iron deficiency Iron deficiency anemia type: chronic blood loss Qualified Code(s): D50.0 - Iron deficiency anemia secondary to blood loss (chronic) Is this a current diagnosis for this admission?: Yes Plan: Hemoglobin has trended down however remains above 7.5. We will continue to monitor and transfuse as needed. Plan for EGD once stable (2) Elevated troponin I level Is this a current diagnosis for this admission?: Yes Plan: Appreciate cardiology input (3) Metastatic cancer Is this a current diagnosis for this admission?: Yes Plan: Appreciate oncology input. Patient is scheduled for a CT chest and CT head and also for a CT-guided biopsy of the liver. We will continue with pain management which appears to be her most pressing concern at this time (4) Upper GI hemorrhage Is this a current diagnosis for this admission?: Yes Plan: Likely chronic and related to underlying medical condition (5) Protein calorie malnutrition Qualifiers: Protein-calorie malnutrition severity: moderate Qualified Code(s): E44.0 - Moderate protein-calorie malnutrition Is this a current diagnosis for this admission?: Yes Plan: Due to underlying disease, likely metastatic cancer - Plan Summary Summary: Patient will need social service manager going forward as she will need help to navigate the medical system - Time Time Spent with patient: 15-24 minutes
[2019-11-14] MEDS: OXYCODONE-ACETAMINOPHEN 5-325 MG TABLET PO PRN (12:42)
[2019-11-14] MEDS: ACETAMINOPHEN 325 MG TABLET PO PRN ×2 (12:42→19:41)
[2019-11-14] MEDS: DIPHENHYDRAMINE HCL 25 MG CAPSULE PO PRN ×2 (12:43→19:41)
--- NOTE | 2019-11-14 13:14 | PDOC PROGRESS REPORT ---
Subjective Progress Note for:: 11/14/19 Subjective:: patient was scheduled for EGD today in the OR, but apparently had breakfast. her rapid Covid 19 test was negative due to time restrictions in the OR , she cannot be done until tomorrrow will continue to monitor transfusion today and keep on PPI for now no acute overnight events Reason For Visit: ANEMIA,GI BLEED, POSSIBLE METASTATIC LUNG CANCER Physical Exam Vital Signs: Temp Pulse Resp BP Pulse Ox 98.2 F 108 H 16 121/66 92 11/14/19 03:58 11/14/19 08:03 11/14/19 08:03 11/14/19 03:58 11/14/19 08:03 Intake & Output 11/13/19 11/14/19 11/15/19 06:59 06:59 06:59 Intake Total 1115 Balance 1115 Weight 57.5 kg General appearance: PRESENT: no acute distress, well-developed, well-nourished Head exam: PRESENT: atraumatic, normocephalic Eye exam: PRESENT: EOMI, PERRLA. ABSENT: scleral icterus Mouth exam: PRESENT: neck supple Throat exam: ABSENT: tonsillar exudate, tonsillogmegaly Neck exam: ABSENT: meningismus, tenderness, thyromegaly Respiratory exam: PRESENT: symmetrical, tachypnea. ABSENT: rales, wheezes Cardiovascular exam: PRESENT: +S1, +S2 GI/Abdominal exam: PRESENT: soft. ABSENT: rebound, rigid, tenderness Extremities exam: ABSENT: joint swelling Neurological exam: PRESENT: alert, awake, CN II-XII grossly intact Results Laboratory Results: 11/14/19 05:09 11/14/19 05:09 11/13/19 11/14/19 11/14/19 09:35 05:09 05:09 WBC 11.3 H RBC 2.97 L Hgb 7.8 L Hct 24.0 L MCV 81 MCH 26.4 L MCHC 32.6 RDW 18.0 H Plt Count 346 Retic Count (auto) Sodium 131.5 L Potassium 4.1 Chloride 98 Carbon Dioxide 26 Anion Gap 8 BUN 16 Creatinine 0.45 L Est GFR ( Amer) > 60 Glucose 95 Calcium 8.9 Magnesium 2.0 Iron TIBC % Saturation Transferrin Ferritin Vitamin B12 Folate Blood Type O POSITIVE Antibody Screen NEGATIVE 11/14/19 11/14/19 11/14/19 10:52 10:52 10:52 WBC RBC Hgb Hct MCV MCH MCHC RDW Plt Count Retic Count (auto) 4.10 H Sodium Potassium Chloride Carbon Dioxide Anion Gap BUN Creatinine Est GFR ( Amer) Glucose Calcium Magnesium Iron 18.3 L TIBC 413 % Saturation 4 Transferrin 260.80 Ferritin 291.00 H Vitamin B12 > 1000.0 H Folate 13.50 Blood Type Antibody Screen 11/13/19 11/13/19 11/13/19 09:35 14:57 20:07 Troponin I 0.161 0.166 0.152 Impressions: Abdomen/Pelvis CT 11/13/19 09:31 IMPRESSION: 1. Mass in the right lung base recommend cc chest for further evaluation. Neoplasm is thought to be most likely. 2. Hepatomegaly with widespread metastatic disease throughout the liver. 3. Aortic adenopathy suspicious for metastatic disease. 4. Probable bony metastatic disease. Assessment & Plan - Diagnosis (1) Upper GI hemorrhage Is this a current diagnosis for this admission?: Yes Plan: I had placed orders for patient to have EGD done and noted that the NPO order was present however she somehow was served breakfast rapid testing of Covid 19 had been done in anticipation and it is negative due to time and space constraints of OR, not able to proceed today will reschedule her for tomorrow - Time Time Spent with patient: 15-24 minutes Level of Care: IMCU Smoking Cessation Education: over 10 minutes Medications reviewed and adjusted accordingly: Yes
[2019-11-14] MEDS: HYDROMORPHONE HCL INJ/PF 2 MG/ML AMPULE IV PRN ×2 (13:54→19:41)
--- NOTE | 2019-11-14 14:02 | RADIOLOGY REPORT (SQ) ---
EXAM DESCRIPTION: CT CHEST WITH IMAGES COMPLETED DATE/TIME: 11/14/2019 1:30 pm REASON FOR STUDY: Metastatic cancer COMPARISON: CT of the abdomen and pelvis with contrast from 11/13/2019. TECHNIQUE: CT scan of the chest performed using helical scanning technique with dynamic intravenous contrast injection. Images reviewed with lung, soft tissue and bone windows. Reconstructed coronal and sagittal MPR and MIP images reviewed. All images stored on PACS. All CT scanners at this facility use dose modulation, iterative reconstruction, and/or weight based d osing when appropriate to reduce radiation dose to as low as reasonably achievable (ALARA). [facility]: Dose Right [facility]: CareDose [facility]: Dose Right [facility]: Teradose 4D [facility]: [employer] CONTRAST TYPE AND DOSE: Contrast/concentration: Isovue 350.00 mg/ml; Total Contrast Delivered: 80.0 ml; Total Saline Delivered: 55.0 ml RENAL FUNCTION: Creatinine 0.5 milligrams/deciliter. RADIATION DOSE: CT Rad equipment meets quality standard of care and radiation dose reduction techniq ues were employed. CTDIvol: 5.3 mGy. DLP: 216 mGy-cm. LIMITATIONS: None. FINDINGS: LUNGS AND PLEURA: There is an irregular area of consolidation centered around the bronchi that extends from the hilum into the superior aspect of the right upper lobe. In addition, there are patchier peribronchial opacities scattered throughout the remainder of the right upper lobe and in t he right middle, left lower, and left lower and left upper lobe. There is n at trace amount of fluid in the right pleural space. There is no pneumothorax. HILAR AND MEDIASTINAL STRUCTURES: Enlarged right hilar lymph node that measures 12 mm in short axis d iameter. HEART AND VASCULAR STRUCTURES: Variant 4 vessel arch with a direct origin of the left vertebral arter y from the arch. There is no thoracic aortic dissection or aneurysm. There is no cardiomegaly or pe ricardial effusion. HARDWARE: None in the chest. UPPER ABDOMEN: Refer to the separate report of the CT of the abdomen. THYROID AND OTHER SOFT TISSUES: No mass or adenopathy. BONES: Probable pathologic compression fractures of the T10, T11 and L1 and L2 vertebral bodies. OTHER: No other finding. IMPRESSION: 1. Irregular area of consolidation centered around the bronchi that extends from the hi lum into the superior aspect of the right upper lobe and patchier peribronchial opacities scattered t hroughout the remainder of the right upper lobe and in the right middle, left lower, and left lower a nd left upper lobe. These opacities are nonspecific and differential to consider include multifocal pneumonia and lymphangitic carcinomatosis. 2. Probable pathologic compression fractures of the T10, T11 and L1 and L2 vertebral bodies. 3. Enlarged right hilar lymph node that measures 12 mm in short axis diameter. TECHNICAL DOCUMENTATION: JOB ID: [id number] Quality ID # [id number]: Final reports with documentation of one or more dose reduction techniques (e.g., Au tomated exposure control, adjustment of the mA and/or kV according to patient size, use of iterative reconstruction technique) 2010 [employer]- All Rights Reserved Reading location - IP/workstation name: [email or web address]
--- NOTE | 2019-11-14 14:11 | RADIOLOGY REPORT (SQ) ---
EXAM DESCRIPTION: CT HEAD WITHOUT IMAGES COMPLETED DATE/TIME: 11/14/2019 1:35 pm REASON FOR STUDY: Metastatic Lung Ca COMPARISON: None. TECHNIQUE: Axial images acquired through the brain without intravenous contrast. Images reviewed wi th bone, brain and subdural windows. Additional sagittal and coronal reconstructions were generated. Images stored on PACS. All CT scanners at this facility use dose modulation, iterative reconstruction, and/or weight based d osing when appropriate to reduce radiation dose to as low as reasonably achievable (ALARA). [facility]: Dose Right [facility]: CareDose [facility]: Dose Right [facility]: Teradose 4D [facility]: [employer] RADIATION DOSE: CT Rad equipment meets quality standard of care and radiation dose reduction techniq ues were employed. CTDIvol: 48.8 mGy. DLP: 981 mGy-cm. LIMITATIONS: None. FINDINGS: There is no acute intracranial hemorrhage, vascular territorial infarct, extra-axial fluid collection, mass effect or midline shift. The kimbrough-white matter differentiation is preserved. Ther e is no effacement of the cerebral sulci or basal subarachnoid cisterns. The caliber of the ventricl es is concordant with the degree of sulcation. The orbits and globes are intact. The paranasal sinuses are clear. There is no fracture of the benito rium. IMPRESSION: No acute intracranial abnormality. EVIDENCE OF ACUTE STROKE: NO. COMMENT: Quality ID # [id number]: Final reports with documentation of one or more dose reduction techniques (e.g., Automated exposure control, adjustment of the mA and/or kV according to patient size, use of iterative reconstruction technique) TECHNICAL DOCUMENTATION: JOB ID: [id number] 2010 [employer]- All Rights Reserved Reading location - IP/workstation name: [email or web address]
[2019-11-15] MEDS: OXYCODONE-ACETAMINOPHEN 5-325 MG TABLET PO PRN ×3 (00:09→11:50)
[2019-11-15] MEDS: ZOLPIDEM TARTRATE 5 MG TABLET PO PRN (00:09)
[2019-11-15 02:48] LABS: HEMATOCRIT 32.6 % (36.0-47.0); MEAN CORPUSCULAR HEMOGLOBIN 27.6 pg (27.0-33.4); MEAN CORPUSCULAR HGB CONC 33.6 g/dL (32.0-36.0); MEAN CORPUSCULAR VOLUME 82 fl (80-97); PLATELET COUNT 306 10^3/uL (150-450); RED BLOOD COUNT 3.98 10^6/uL (3.72-5.28); WHITE BLOOD COUNT 12.7 10^3/uL (4.0-10.5)
[2019-11-15] MEDS ORDERED: PROPOFOL INJ 200 MG/20 ML VIAL IV ONE (07:07)
[2019-11-15] MEDS: HYDROMORPHONE HCL INJ/PF 2 MG/ML AMPULE IV PRN (07:46)
--- NOTE | 2019-11-15 09:28 | Operative Report ---
Operative Report DATE OF SURGERY: 11/15/19 Operative Report: The risks benefits and alternatives of the procedure explained to the patient in detail and informed consent is obtained.A GIF Olympus video scope was inserted into the patient's mouth and hypopharynx ,the esophagus is identified intubated and insufflated ,the scope was then advanced through the esophagus stomach and duodenum ,retroflexion maneuver is done ,the esophagus stomach and first and second portions of the duodenum examined. PREOPERATIVE DIAGNOSIS: Melena POSTOPERATIVE DIAGNOSIS: 2 clean base, shallow gastric ulcers not actively bleeding. Gastritis. Hiatal hernia OPERATION: EGD with biopsy SURGEON: SIMONE EDEN ANESTHESIA: LMAC TISSUE REMOVED OR ALTERED: As noted above. COMPLICATIONS: None. ESTIMATED BLOOD LOSS: None. INTRAOPERATIVE FINDINGS: As noted above. PROCEDURE: Patient tolerated the procedure well. No immediate postprocedure complications are noted. Patient is discharged back to her room in good condition. Wait on the pathology. Resume previous diet and activity level.
[2019-11-15] MEDS: PANTOPRAZOLE SODIUM 40 MG VIAL IV SCH ×2 (09:42→22:51)
[2019-11-15] MEDS: DOCUSATE SODIUM 100 MG CAPSULE PO SCH (09:42)
--- NOTE | 2019-11-15 10:20 | PDOC PROGRESS REPORT ---
Subjective Progress Note for:: 11/15/19 Subjective:: BORIS MORALES is a 64 year old female without known cardiac history, no known medical history, smoker of 1 pack/day since age 16 years and no family history of premature coronary artery disease who is consulted to our service for evaluation of elevated troponin. The patient had been having abdominal pain since June 2019. Her pain has gotten worse over time and approximately 3 days ago she noticed black/tarry stools. She came to the emergency room because her pain is now unbearable. Unfortunately her CT scan is very concerning for metastatic cancer. She does complain of some shortness of breath that she attributes to her abdominal pain as it makes it worse but specifically denied chest pain, palpitations, syncope, presyncope and diaphoresis. She also denied hematemesis. 11/15/2019: The patient is found sitting up in her bed complaining of significant abdominal pain. Her blood pressure is above her goal likely from her severe pain. She continues to deny chest pain, shortness of breath, ABDALLA, PND, lower extremity edema, palpitations, syncope and presyncope. Her telemetry demonstrated sinus tachycardia. Physical exam on 11/15/2019: GENERAL: Pleasant and conversational. Oriented x3. Complains of significant abdominal pain. Not in acute distress. Well groomed and well developed. Pale, thin, appears chronically ill. HEENT: Normocephalic, atraumatic. Pupils equal. Sclerae anicteric. Oropharynx moist. NECK: No JVD. No carotid bruits. LUNGS: Clear to auscultation bilaterally. Normal respiratory effort without the use of accessory muscles or intercostal retractions. CARDIOVASCULAR: Mildly tachycardic. Regular rate and rhythm, normal S1 and S2 without murmurs, rubs, or gallops. PMI not displaced. ABDOMEN: Not examined due to pain. EXTREMITIES: No edema, no cyanosis, no clubbing. +2 pulses femoral and pedal pulses bilaterally. SKIN: No lesions or rashes. MUSCULOSKELETAL: No chest tenderness to palpation. NEUROLOGIC: Nonfocal. No gross sensory or motor deficits bilateral upper or lower extremities. Cardiac studies: Echocardiogram on 11/13/2019: -The patient is in sinus tachycardia during portions of the study. -LV is hyperdynamic. -EF greater than 70%. -Grade 1 diastolic dysfunction. -Normal wall motion. -Mild MAC without stenosis. -Mild MR, mild AI. -Mild aortic stenosis with a peak velocity of 2.5 m/s and mean gradient of 12 mmHg. Reason For Visit: ANEMIA,GI BLEED, POSSIBLE METASTATIC LUNG CANCER Physical Exam Vital Signs: Temp Pulse Resp BP Pulse Ox 98.6 F 99 20 160/96 H 90 L 11/15/19 03:06 11/15/19 03:06 11/15/19 03:06 11/15/19 03:06 11/15/19 03:06 Intake & Output 11/14/19 11/15/19 11/16/19 06:59 06:59 06:59 Intake Total 1115 1310 Output Total 0 Balance 1115 1310 Weight 57.5 kg 63.5 kg Results Laboratory Results: 11/15/19 02:30 11/14/19 05:09 11/13/19 11/14/19 11/14/19 09:35 10:52 10:52 WBC RBC Hgb Hct MCV MCH MCHC RDW Plt Count Retic Count (auto) 4.10 H Iron 18.3 L TIBC 413 % Saturation 4 Transferrin Ferritin 291.00 H Vitamin B12 > 1000.0 H Folate 13.50 Blood Type O POSITIVE Antibody Screen NEGATIVE 11/14/19 11/15/19 10:52 02:30 WBC 12.7 H RBC 3.98 Hgb 11.0 L D Hct 32.6 L MCV 82 MCH 27.6 MCHC 33.6 RDW 17.0 H Plt Count 306 Retic Count (auto) Iron TIBC % Saturation Transferrin 260.80 Ferritin Vitamin B12 Folate Blood Type Antibody Screen 11/13/19 11/13/19 11/13/19 09:35 14:57 20:07 Troponin I 0.161 0.166 0.152 Impressions: Abdomen/Pelvis CT 11/13/19 09:31 IMPRESSION: 1. Mass in the right lung base recommend cc chest for further evaluation. Neoplasm is thought to be most likely. 2. Hepatomegaly with widespread metastatic disease throughout the liver. 3. Aortic adenopathy suspicious for metastatic disease. 4. Probable bony metastatic disease. Chest CT 11/14/19 00:00 IMPRESSION: 1. Irregular area of consolidation centered around the bronchi that extends from the hilum into the superior aspect of the right upper lobe and patchier peribronchial opacities scattered throughout the remainder of the right upper lobe and in the right middle, left lower, and left lower and left upper lobe. These opacities are nonspecific and differential to consider include multifocal pneumonia and lymphangitic carcinomatosis. 2. Probable pathologic compression fractures of the T10, T11 and L1 and L2 vertebral bodies. 3. Enlarged right hilar lymph node that measures 12 mm in short axis diameter. Head CT 11/14/19 00:00 IMPRESSION: No acute intracranial abnormality. EVIDENCE OF ACUTE STROKE: NO. 11/15/19 02:30 11/14/19 05:09 MCV 82 fl (80-97) 11/15/19 02:30 MCH 27.6 pg (27.0-33.4) 11/15/19 02:30 MCHC 33.6 g/dL (32.0-36.0) 11/15/19 02:30 RDW 17.0 % (11.5-14.0) H 11/15/19 02:30 Seg Neutrophils % 81.6 % (42-78) H 11/13/19 09:35 Retic Count (auto) 4.10 % (0.66-2.85) H 11/14/19 10:52 Chloride 98 mmol/L (98-107) 11/14/19 05:09 Carbon Dioxide 26 mmol/L (22-30) 11/14/19 05:09 Anion Gap 8 (5-19) 11/14/19 05:09 Est GFR ( Amer) > 60 (>60) 11/14/19 05:09 Glucose 95 mg/dL (75-110) 11/14/19 05:09 Calcium 8.9 mg/dL (8.4-10.2) 11/14/19 05:09 Magnesium 2.0 mg/dL (1.6-2.3) 11/14/19 05:09 Iron 18.3 ug/dL (37-170) L 11/14/19 10:52 TIBC 413 ug/dL (250-450) 11/14/19 10:52 % Saturation 4 % 11/14/19 10:52 Transferrin 260.80 mg/dL (206.00-381.00) 11/14/19 10:52 Ferritin 291.00 ng/mL (11.1-264.0) H 11/14/19 10:52 Total Bilirubin 0.7 mg/dL (0.2-1.3) 11/13/19 09:35 AST 184 U/L (14-36) H 11/13/19 09:35 Alkaline Phosphatase 637 U/L (38-126) H 11/13/19 09:35 Total Protein 6.1 g/dL (6.3-8.2) L 11/13/19 09:35 Albumin 3.3 g/dL (3.5-5.0) L 11/13/19 09:35 Vitamin B12 > 1000.0 pg/mL (239-931) H 11/14/19 10:52 Folate 13.50 ng/mL (>2.76) 11/14/19 10:52 Blood Type O POSITIVE 11/13/19 09:35 Antibody Screen NEGATIVE 11/13/19 09:35 11/13/19 11/13/19 11/13/19 09:35 14:57 20:07 Troponin I 0.161 0.166 0.152 Current Medication List Generic Name Dose Route Start Last Admin Trade Name Freq PRN Reason Stop Dose Admin Acetaminophen 650 mg 11/13/19 13:51 Tylenol 325 Mg Tablet PO 12/13/19 13:50 Q4HP PRN FOR PAIN SCALE 1-2 Albuterol/Ipratropium 3 ml 11/13/19 13:51 Duoneb 3 Ml Ampul NEB 12/13/19 13:50 RTQ6HP PRN SHORTNESS OF BREATH Docusate Sodium 100 mg 11/14/19 10:00 11/14/19 10:05 Colace 100 Mg Capsule PO 12/14/19 09:59 Not Given DAILY MARYA Hydromorphone HCl 1 mg 11/14/19 12:32 11/14/19 19:41 Dilaudid Inj/Pf 2 Mg/Ml Ampule IV 1 mg Q4HP PRN Administration FOR PAIN SCALE 3-5 Ondansetron HCl 4 mg 11/13/19 13:51 Zofran Odt 4 Mg Tablet PO 12/13/19 13:50 Q6HP PRN FOR NAUSEA/VOMITING Oxycodone/Acetaminophen 1 tab 11/13/19 15:30 11/15/19 05:14 Percocet 5-325 Mg Tablet PO 11/20/19 13:50 1 tab Q6HP PRN Administration FOR PAIN SCALE 2-3 Pantoprazole Sodium 40 mg 11/13/19 22:00 11/14/19 22:13 Protonix Iv Inj 40 Mg Vial IV 11/20/19 21:59 40 mg Q12 MARYA Administration Zolpidem Tartrate 5 mg 11/13/19 13:51 11/15/19 00:09 Ambien 5 Mg Tablet PO 11/20/19 13:50 5 mg HSP PRN Administration SLEEP OR INSOMNIA Discontinued Medications Generic Name Dose Route Start Last Admin Trade Name Frerachel PRN Reason Stop Dose Admin Acetaminophen 650 mg 11/14/19 05:00 11/14/19 19:41 Tylenol 325 Mg Tablet PO 11/14/19 23:59 650 mg .BEFORE TRANSFUSION PRN Administration FOR PAIN Diphenhydramine HCl 25 mg 11/14/19 05:00 11/14/19 19:41 Benadryl 25 Mg Capsule PO 11/14/19 23:59 25 mg .BEFORE TRANSFUSION PRN Administration FOR REACTION Sodium Chloride 500 mls @ 0 mls/hr 11/13/19 09:32 11/13/19 11:01 Nacl 0.9% 500 Ml Iv Soln IV 11/13/19 09:33 Infused NOW ONE Infusion Wide Open Morphine Sulfate 2 mg 11/13/19 09:31 11/13/19 10:23 Morphine 10 Mg/Ml Inj IV 11/13/19 09:32 2 mg NOW ONE Administration Morphine Sulfate 2 mg 11/13/19 12:01 11/13/19 12:24 Morphine 10 Mg/Ml Inj IV 11/13/19 12:02 2 mg NOW ONE Administration Morphine Sulfate 3 mg 11/13/19 15:29 11/14/19 10:09 Morphine 10 Mg/Ml Inj IV 11/20/19 15:28 3 mg Q4HP PRN Administration FOR PAIN SCALE 3-4 Ondansetron HCl 4 mg 11/13/19 09:31 11/13/19 10:28 Zofran Inj/Pf 4 Mg/2 Ml Sdv IV 11/13/19 09:32 4 mg NOW ONE Administration Oxycodone/Acetaminophen 1 tab 11/13/19 13:51 Percocet 5-325 Mg Tablet PO 11/20/19 13:50 Q6HP PRN FOR PAIN SCALE 3-4 Pantoprazole Sodium 80 mg 11/13/19 09:30 11/13/19 10:28 Protonix Iv Inj 40 Mg Vial IV 11/13/19 09:31 80 mg .BOLUS (IVBAG) ONE Administration Propofol Confirm 11/15/19 07:07 Diprivan Inj 200 Mg/20 Ml Vial Administered 11/15/19 07:08 Dose 200 mg IV .STK-MED ONE Assessment & Plan - Diagnosis (1) Elevated troponin I level Is this a current diagnosis for this admission?: Yes Plan: Although the patient has risk factors for coronary artery disease, her presentation is not consistent with acute coronary syndrome but likely a type II myocardial infarction secondary to her tachycardia and anemia. She has remained hemodynamically stable and without angina or anginal equivalents. Her echocardiogram was most remarkable for a normal ejection fraction and mild aortic stenosis. At this point further cardiac work-up will depend on her oncological prognosis which appears to be very grim. Recommendations: -Continue with cardiac telemetry. -Start metoprolol succinate 25 mg p.o. daily. -Supportive measures. -Continue to hold aspirin. -Cardiology does not have further recommendations at this point therefore we will sign off the case. -Please reconsult if deemed necessary. -Please notify me at [phone] when the patient is ready to be discharged to arrange outpatient cardiology follow-up. (2) GI bleed Qualifiers: GI bleed type/associated pathology: melena Qualified Code(s): K92.1 - Melena Is this a current diagnosis for this admission?: Yes Plan: The patient is now followed by GI and oncology teams. (3) Aortic stenosis, mild Plan: The patient has mild aortic stenosis with a peak velocity of 2.5 m/s and a mean gradient of 12 mmHg. There is no indication for surgical intervention at this time. She remains asymptomatic. Recommendations: -Continue with clinical follow-up. -Repeat echocardiogram in 2 to 3 years or sooner if any symptoms develop.
--- NOTE | 2019-11-15 12:24 | PDOC PROGRESS REPORT ---
Subjective Progress Note for:: 11/15/19 Subjective:: Pt had EGD this am, non bleeding ulcers noted. CT chest w/ consolidative type process, but no gen mass, CT head negative. Reason For Visit: ANEMIA,GI BLEED, POSSIBLE METASTATIC LUNG CANCER Physical Exam Vital Signs: Temp Pulse Resp BP Pulse Ox 98.6 F 93 16 122/62 96 11/15/19 09:44 11/15/19 09:44 11/15/19 09:44 11/15/19 09:44 11/15/19 09:44 Intake & Output 11/14/19 11/15/19 11/16/19 06:59 06:59 06:59 Intake Total 1115 1310 50 Output Total 0 Balance 1115 1310 50 Weight 57.5 kg 63.5 kg 63.5 kg Results Laboratory Results: 11/15/19 02:30 11/14/19 05:09 11/13/19 11/14/19 11/15/19 09:35 10:52 02:30 WBC 12.7 H RBC 3.98 Hgb 11.0 L D Hct 32.6 L MCV 82 MCH 27.6 MCHC 33.6 RDW 17.0 H Plt Count 306 Iron 18.3 L TIBC 413 % Saturation 4 Ferritin 291.00 H Vitamin B12 > 1000.0 H Folate 13.50 Blood Type O POSITIVE Antibody Screen NEGATIVE 11/13/19 11/13/19 11/13/19 09:35 14:57 20:07 Troponin I 0.161 0.166 0.152 Impressions: Abdomen/Pelvis CT 11/13/19 09:31 IMPRESSION: 1. Mass in the right lung base recommend cc chest for further evaluation. Neoplasm is thought to be most likely. 2. Hepatomegaly with widespread metastatic disease throughout the liver. 3. Aortic adenopathy suspicious for metastatic disease. 4. Probable bony metastatic disease. Chest CT 11/14/19 00:00 IMPRESSION: 1. Irregular area of consolidation centered around the bronchi that extends from the hilum into the superior aspect of the right upper lobe and patchier peribronchial opacities scattered throughout the remainder of the right upper lobe and in the right middle, left lower, and left lower and left upper lobe. These opacities are nonspecific and differential to consider include multifocal pneumonia and lymphangitic carcinomatosis. 2. Probable pathologic compression fractures of the T10, T11 and L1 and L2 vertebral bodies. 3. Enlarged right hilar lymph node that measures 12 mm in short axis diameter. Head CT 11/14/19 00:00 IMPRESSION: No acute intracranial abnormality. EVIDENCE OF ACUTE STROKE: NO. Assessment & Plan - Diagnosis (1) Metastatic cancer Is this a current diagnosis for this admission?: Yes Plan: CT guided liver bx planned, awaiting those results (2) Anemia Qualifiers: Anemia type: iron deficiency Iron deficiency anemia type: chronic blood loss Qualified Code(s): D50.0 - Iron deficiency anemia secondary to blood loss (chronic) Is this a current diagnosis for this admission?: Yes Plan: Hb improved post tx, ferritin elevated so no IV iron planned, b12 nml (3) Pain, neoplasm-related Is this a current diagnosis for this admission?: Yes Plan: Likely related to cancer, she has multiple areas of compression but also the liver lesions both of which could cause pain, made changes to pain meds today, I will take over her pain management - Time Time Spent with patient: 15-24 minutes
--- NOTE | 2019-11-15 15:07 | PDOC PROGRESS REPORT ---
Subjective Progress Note for:: 11/15/19 Subjective:: Complaining of generalized pain. Oncology will manage pain meds from now Reason For Visit: ANEMIA,GI BLEED, POSSIBLE METASTATIC LUNG CANCER Physical Exam Vital Signs: Temp Pulse Resp BP Pulse Ox 98.6 F 93 16 122/62 96 11/15/19 09:44 11/15/19 09:44 11/15/19 09:44 11/15/19 09:44 11/15/19 09:44 Intake & Output 11/14/19 11/15/19 11/16/19 06:59 06:59 06:59 Intake Total 1115 1310 50 Output Total 0 Balance 1115 1310 50 Weight 57.5 kg 63.5 kg 63.5 kg General appearance: PRESENT: no acute distress, thin Head exam: PRESENT: atraumatic, normocephalic Eye exam: PRESENT: conjunctiva pink, PERRLA. ABSENT: scleral icterus Mouth exam: PRESENT: tongue midline Neck exam: ABSENT: carotid bruit, JVD, lymphadenopathy, thyromegaly Respiratory exam: PRESENT: clear to auscultation erasmo, unlabored. ABSENT: rales, rhonchi, wheezes Cardiovascular exam: PRESENT: RRR. ABSENT: diastolic murmur, rubs, systolic murmur Pulses: PRESENT: normal dorsalis pedis pul Vascular exam: PRESENT: normal capillary refill GI/Abdominal exam: PRESENT: normal bowel sounds, soft. ABSENT: distended, guarding, mass, organolmegaly, rebound, tenderness Rectal exam: PRESENT: deferred Extremities exam: PRESENT: full ROM. ABSENT: calf tenderness, clubbing, pedal edema Neurological exam: PRESENT: alert, awake, oriented to person, oriented to place, oriented to time, oriented to situation, CN II-XII grossly intact. ABSENT: motor sensory deficit Psychiatric exam: PRESENT: appropriate affect, normal mood. ABSENT: homicidal ideation, suicidal ideation Skin exam: PRESENT: dry, intact, warm. ABSENT: cyanosis, rash Results Laboratory Results: 11/15/19 02:30 11/14/19 05:09 11/13/19 11/14/19 11/15/19 09:35 10:52 02:30 WBC 12.7 H RBC 3.98 Hgb 11.0 L D Hct 32.6 L MCV 82 MCH 27.6 MCHC 33.6 RDW 17.0 H Plt Count 306 Iron 18.3 L TIBC 413 % Saturation 4 Ferritin 291.00 H Vitamin B12 > 1000.0 H Folate 13.50 Blood Type O POSITIVE Antibody Screen NEGATIVE 11/13/19 11/13/19 11/13/19 09:35 14:57 20:07 Troponin I 0.161 0.166 0.152 Impressions: Abdomen/Pelvis CT 11/13/19 09:31 IMPRESSION: 1. Mass in the right lung base recommend cc chest for further evaluation. Neoplasm is thought to be most likely. 2. Hepatomegaly with widespread metastatic disease throughout the liver. 3. Aortic adenopathy suspicious for metastatic disease. 4. Probable bony metastatic disease. Chest CT 11/14/19 00:00 IMPRESSION: 1. Irregular area of consolidation centered around the bronchi that extends from the hilum into the superior aspect of the right upper lobe and patchier peribronchial opacities scattered throughout the remainder of the right upper lobe and in the right middle, left lower, and left lower and left upper lobe. These opacities are nonspecific and differential to consider include multifocal pneumonia and lymphangitic carcinomatosis. 2. Probable pathologic compression fractures of the T10, T11 and L1 and L2 vertebral bodies. 3. Enlarged right hilar lymph node that measures 12 mm in short axis diameter. Head CT 11/14/19 00:00 IMPRESSION: No acute intracranial abnormality. EVIDENCE OF ACUTE STROKE: NO. Assessment and Plan - Diagnosis (1) Anemia Qualifiers: Anemia type: iron deficiency Iron deficiency anemia type: chronic blood loss Qualified Code(s): D50.0 - Iron deficiency anemia secondary to blood loss (chronic) Is this a current diagnosis for this admission?: Yes (2) Elevated troponin I level Is this a current diagnosis for this admission?: Yes Plan: Outpatient follow-up with cardiology (3) Metastatic cancer Is this a current diagnosis for this admission?: Yes (4) Upper GI hemorrhage Is this a current diagnosis for this admission?: Yes Plan: Likely secondary to peptic ulcer disease, non bleeding ulcer (5) Protein calorie malnutrition Qualifiers: Protein-calorie malnutrition severity: moderate Qualified Code(s): E44.0 - Moderate protein-calorie malnutrition Is this a current diagnosis for this admission?: Yes Plan: Due to underlying disease, likely metastatic cancer (6) Non-ST elevation myocardial infarction (NSTEMI) Is this a current diagnosis for this admission?: Yes - Plan Summary Summary: She is status post EGD with nonbleeding ulcers noted, CT chest reveals no gen mass and CT of the head is negative. CT-guided liver biopsy is pending. CT scan of the chest shows irregular areas of consolidation around the bronchi that extends from the hilum into the superior aspect of the right upper lobe right middle left lower and left lower and left upper lobe. Differential considerations include multifocal pneumonia and lymphangitic carcinomatosis. There is also probable pathologic compression fractures of the T10, T11 L1 and L2 vertebral bodies as well as enlarged right hilar lymph node. In terms of elevated troponin no further acute cardiac work-up indicated and will arrange for outpatient follow-up with cardiology once discharged CT-guided biopsy was not done today due to technical reasons. It is tentatively rescheduled for tomorrow morning. - Time Time Spent with patient: 15-24 minutes
[2019-11-15] MEDS: OXYCODONE HCL IR 5 MG TABLET PO PRN (16:55)
[2019-11-15] MEDS ORDERED: MORPHINE SULFATE SR 15 MG TABLET PO SCH (22:00)
[2019-11-16] MEDS: HYDROMORPHONE HCL INJ/PF 2 MG/ML AMPULE IV PRN ×3 (00:01→12:54)
[2019-11-16] MEDS: ZOLPIDEM TARTRATE 5 MG TABLET PO PRN (00:01)
[2019-11-16 06:15] LABS: HEMATOCRIT 34.1 % (36.0-47.0); HEMOGLOBIN 11.4 g/dL (12.0-15.5); MEAN CORPUSCULAR HEMOGLOBIN 27.8 pg (27.0-33.4); MEAN CORPUSCULAR HGB CONC 33.5 g/dL (32.0-36.0); MEAN CORPUSCULAR VOLUME 83 fl (80-97); PLATELET COUNT 277 10^3/uL (150-450); RED BLOOD COUNT 4.11 10^6/uL (3.72-5.28); RED CELL DISTRIBUTION WIDTH 17.5 % (11.5-14.0); WHITE BLOOD COUNT 14.9 10^3/uL (4.0-10.5)
[2019-11-16 06:32] LABS: ABSOLUTE LYMPHOCYTES# (MANUAL) 0.9 10^3/uL (0.5-4.7); ABSOLUTE MONOCYTES # (MANUAL) 1.2 10^3/uL (0.1-1.4); BASOPHILS % (MANUAL) 0 % (0-2); EOSINOPHILS % (MANUAL) 1 % (0-6); LYMPHOCYTES % (MANUAL) 4 % (13-45); MONOCYTES % (MANUAL) 8 % (3-13); SEGMENTED NEUTROPHILS % (MAN) 85 % (42-78); TOTAL CELLS COUNTED 100
[2019-11-16 06:33] LABS: ANION GAP 9 (5-19); ANISOCYTOSIS 1+; BLOOD UREA NITROGEN 13 mg/dL (7-20); CALCIUM 9.1 mg/dL (8.4-10.2); CARBON DIOXIDE 26 mmol/L (22-30); CHLORIDE 97 mmol/L (98-107); GLUCOSE 106 mg/dL (75-110); PLATELET COMMENT ADEQUATE; POIKILOCYTOSIS SLIGHT; POLYCHROMASIA SLIGHT; POTASSIUM 4.2 mmol/L (3.6-5.0); STOMATOCYTES SLIGHT
[2019-11-16] MEDS ORDERED: POLYETHYLENE GLYCOL 3350 POWDER 17 GM/1 PACKET PO PRN (07:49)
--- NOTE | 2019-11-16 07:49 | PDOC PROGRESS REPORT ---
Subjective Progress Note for:: 11/16/19 Subjective:: Patient reports that her pain was about a 20 out of 10 all night. She did not realize that she could ask for more pain medication. She also states that she has not had a BM for 3 days. She is able to eat, but is not able to move around much due to the pain. No further evidence of bleeding. ROS: No confusion or foggyness. No nausea. Cannot tell if she is weak, as she has not been up to walk. Reason For Visit: ANEMIA,GI BLEED, POSSIBLE METASTATIC LUNG CANCER Physical Exam Vital Signs: Temp Pulse Resp BP Pulse Ox 98.2 F 96 20 167/89 H 94 11/15/19 22:59 11/16/19 02:00 11/15/19 22:59 11/15/19 22:59 11/16/19 00:48 Intake & Output 11/15/19 11/16/19 11/17/19 06:59 06:59 06:59 Intake Total 1310 1550 Output Total 0 0 Balance 1310 1550 Weight 63.5 kg 61.7 kg Exam: Due to COVID-19 restrictions, I was not able to examine the patient. I was only able to speak with her by telephone. Results Laboratory Results: 11/16/19 05:58 11/16/19 05:58 11/16/19 11/16/19 05:58 05:58 WBC 14.9 H RBC 4.11 Hgb 11.4 L Hct 34.1 L MCV 83 MCH 27.8 MCHC 33.5 RDW 17.5 H Plt Count 277 Seg Neutrophils % Not Reportable Sodium 132.1 L Potassium 4.2 Chloride 97 L Carbon Dioxide 26 Anion Gap 9 BUN 13 Creatinine 0.46 L Est GFR ( Amer) > 60 Glucose 106 Calcium 9.1 11/13/19 11/13/19 11/13/19 09:35 14:57 20:07 Troponin I 0.161 0.166 0.152 Impressions: Abdomen/Pelvis CT 11/13/19 09:31 IMPRESSION: 1. Mass in the right lung base recommend cc chest for further evaluation. Neoplasm is thought to be most likely. 2. Hepatomegaly with widespread metastatic disease throughout the liver. 3. Aortic adenopathy suspicious for metastatic disease. 4. Probable bony metastatic disease. Chest CT 11/14/19 00:00 IMPRESSION: 1. Irregular area of consolidation centered around the bronchi that extends from the hilum into the superior aspect of the right upper lobe and patchier peribronchial opacities scattered throughout the remainder of the right upper lobe and in the right middle, left lower, and left lower and left upper lobe. These opacities are nonspecific and differential to consider include multifocal pneumonia and lymphangitic carcinomatosis. 2. Probable pathologic compression fractures of the T10, T11 and L1 and L2 vertebral bodies. 3. Enlarged right hilar lymph node that measures 12 mm in short axis diameter. Head CT 11/14/19 00:00 IMPRESSION: No acute intracranial abnormality. EVIDENCE OF ACUTE STROKE: NO. Assessment & Plan - Diagnosis (1) Compression fracture of body of thoracic vertebra Is this a current diagnosis for this admission?: Yes Plan: I am concerned about the possiblity of cord compression due to tumor. I will try to order MRI T and L spine today. Consider radiation to the back, or other interventional radiology procedure to help stabilize these areas. (2) Anemia Qualifiers: Iron deficiency anemia type: chronic blood loss Is this a current diagnosis for this admission?: Yes Plan: EGD without active bleeding. Continue conservative management. No indication for transfusion today. HGB improved. Will follow. (3) Pain, neoplasm-related Is this a current diagnosis for this admission?: Yes Plan: I will increase MS Contin and I have encouraged her to ask for pain medication often. She also has constipation due to the pain medication. I will add SENNA- S BID and add miralax PRN. - Time Time Spent with patient: Less than 15 minutes
[2019-11-16] MEDS: OXYCODONE HCL IR 5 MG TABLET PO PRN ×2 (07:50→18:08)
[2019-11-16] MEDS ORDERED: FENTANYL CITRATE INJ/PF 100 MCG/2 ML AMPUL ONE (09:39)
[2019-11-16] MEDS ORDERED: MIDAZOLAM 2 MG/2 ML INJ ONE (09:39)
--- NOTE | 2019-11-16 10:32 | RADIOLOGY REPORT (SQ) ---
EXAM DESCRIPTION: CT BIOPSY LIVER; CT NEEDLE PLACEMENT IMAGES COMPLETED DATE/TIME: 11/16/2019 10:19 am REASON FOR STUDY: Meticstatic cancer; METICSTATIC CANCER COMPARISON: None. TECHNIQUE: After obtaining informed consent and explaining the risks and benefits of conscious sedat ion,the patient agreed to the procedure. The patient was brought to the CT suite and was placed supin e on the CT gurney. The patient was prepped and draped in the usual sterile fashion. Axial images we re obtained for targeting 1 of many hepatic lesions in the right lobe An appropriate access site was selected. IV conscious sedation was administered and physician direction by the registered nurse jimenez sanders 1.0 milligrams of Versed and 100 micrograms of fentanyl. Physiologic monitoring was provided before , during, and after sedation. The total sedation time was 30 minutes. Documentation face to face time, the performing proceduralist, spent monitoring the patient: [address] of the liver was performed to localize an approach for the liver biopsy. A percuta neous site was marked. Time out was performed. After skin prep and local lidocaine for skin and deep tissue anesthesia, a coaxial biopsy needle sys tem was used to obtain several cores of tissue from the right lobe of the liver. These were submitte d to the lab in formalin. No immediate postprocedure complications. Total of 15.[address] fluoro was used. 291 CT Fluoroscopic images were obtained and saved to PACS. All CT scanners at this facility use dose modulation, iterative reconstruction, and/or weight based d osing when appropriate to reduce radiation dose to as low as reasonably achievable (ALARA). [facility]: Dose Right [facility]: CareDose [facility]: Dose Right [facility]: Teradose 4D [facility]: [email or web address] RADIATION DOSE: CT Rad equipment meets quality standard of care and radiation dose reduction techniq ues were employed. CTDIvol: 7.5 - 16.2 mGy. DLP: 512 mGy-cm. mGy. LIMITATIONS: None. FINDINGS: CT guided liver biopsy as detailed above. IMPRESSION: CT GUIDED TARGETED LIVER BIOPSY PERFORMED ABOVE. PATHOLOGY PENDING. NO IMMEDIATE C OMPLICATIONS. COMMENT: Patient medication list reviewed:Yes- Quality ID# [id number]:Eligible professional attests to docu menting in the medical record they obtained, updated, or reviewed the patient's current medications.. Quality ID [id number]: Final reports for procedures using fluoroscopy that document radiation exposure gera maryam, or exposure time and number of fluorographic images (if radiation exposure indices are not avail able) TECHNICAL DOCUMENTATION: JOB ID: [id number] Quality ID # [id number]: Final reports with documentation of one or more dose reduction techniques (e.g., A utomated exposure control, adjustment of the mA and/or kV according to patient size, use of iterative reconstruction technique) 2010 [employer]- All Rights Reserved Reading location - IP/workstation name: [email or web address]
[2019-11-16] MEDS: SENNOSIDES/DOCUSATE 8.6-50 MG 1 EACH TABLET PO SCH (10:49)
[2019-11-16] MEDS: MORPHINE SULFATE SR 15 MG TABLET PO SCH ×2 (10:50→21:48)
[2019-11-16] MEDS: PANTOPRAZOLE SODIUM 40 MG VIAL IV SCH ×2 (10:50→21:48)
--- NOTE | 2019-11-16 13:28 | PDOC PROGRESS REPORT ---
Subjective Progress Note for:: 11/16/19 Subjective:: Complaining of generalized pain. Oncology will manage pain meds Appreciate Dr. Chow input Reason For Visit: ANEMIA,GI BLEED, POSSIBLE METASTATIC LUNG CANCER Physical Exam Vital Signs: Temp Pulse Resp BP Pulse Ox 97.4 F 109 H 18 118/69 93 11/16/19 12:11 11/16/19 12:11 11/16/19 12:11 11/16/19 12:11 11/16/19 12:11 Intake & Output 11/15/19 11/16/19 11/17/19 06:59 06:59 06:59 Intake Total 1310 1550 0 Output Total 0 0 0 Balance 1310 1550 0 Weight 63.5 kg 61.7 kg General appearance: PRESENT: no acute distress, cooperative, thin Head exam: PRESENT: atraumatic, normocephalic Eye exam: PRESENT: conjunctiva pink, EOMI, PERRLA. ABSENT: scleral icterus Ear exam: PRESENT: normal external ear exam Mouth exam: PRESENT: moist, tongue midline Neck exam: ABSENT: carotid bruit, JVD, lymphadenopathy, thyromegaly Respiratory exam: PRESENT: clear to auscultation erasmo, unlabored. ABSENT: rales, rhonchi, wheezes Cardiovascular exam: PRESENT: RRR, +S1, +S2. ABSENT: diastolic murmur, rubs, systolic murmur GI/Abdominal exam: PRESENT: normal bowel sounds, soft. ABSENT: distended, guarding, mass, organolmegaly, rebound, tenderness Rectal exam: PRESENT: deferred Extremities exam: PRESENT: full ROM. ABSENT: calf tenderness, clubbing, pedal edema Musculoskeletal exam: PRESENT: other - vague generalized pain Neurological exam: PRESENT: alert, awake, oriented to person, oriented to place, oriented to time, oriented to situation, CN II-XII grossly intact. ABSENT: motor sensory deficit Psychiatric exam: PRESENT: appropriate affect, normal mood. ABSENT: homicidal ideation, suicidal ideation Skin exam: PRESENT: dry, intact, warm. ABSENT: cyanosis, rash Results Laboratory Results: 11/16/19 05:58 11/16/19 05:58 11/16/19 11/16/19 05:58 05:58 WBC 14.9 H RBC 4.11 Hgb 11.4 L Hct 34.1 L MCV 83 MCH 27.8 MCHC 33.5 RDW 17.5 H Plt Count 277 Seg Neutrophils % Not Reportable Sodium 132.1 L Potassium 4.2 Chloride 97 L Carbon Dioxide 26 Anion Gap 9 BUN 13 Creatinine 0.46 L Est GFR ( Amer) > 60 Glucose 106 Calcium 9.1 11/13/19 11/13/19 11/13/19 09:35 14:57 20:07 Troponin I 0.161 0.166 0.152 Impressions: Abdomen/Pelvis CT 11/13/19 09:31 IMPRESSION: 1. Mass in the right lung base recommend cc chest for further evaluation. Neoplasm is thought to be most likely. 2. Hepatomegaly with widespread metastatic disease throughout the liver. 3. Aortic adenopathy suspicious for metastatic disease. 4. Probable bony metastatic disease. Chest CT 11/14/19 00:00 IMPRESSION: 1. Irregular area of consolidation centered around the bronchi that extends from the hilum into the superior aspect of the right upper lobe and patchier peribronchial opacities scattered throughout the remainder of the right upper lobe and in the right middle, left lower, and left lower and left upper lobe. These opacities are nonspecific and differential to consider include multifocal pneumonia and lymphangitic carcinomatosis. 2. Probable pathologic compression fractures of the T10, T11 and L1 and L2 vertebral bodies. 3. Enlarged right hilar lymph node that measures 12 mm in short axis diameter. Head CT 11/14/19 00:00 IMPRESSION: No acute intracranial abnormality. EVIDENCE OF ACUTE STROKE: NO. Guidance Needle Placement CT 11/16/19 00:00 IMPRESSION: CT GUIDED TARGETED LIVER BIOPSY PERFORMED ABOVE. PATHOLOGY PENDING. NO IMMEDIATE COMPLICATIONS. Liver Biopsy CT 11/16/19 00:00 IMPRESSION: CT GUIDED TARGETED LIVER BIOPSY PERFORMED ABOVE. PATHOLOGY PENDING. NO IMMEDIATE COMPLICATIONS. Assessment and Plan - Diagnosis (1) Anemia Qualifiers: Iron deficiency anemia type: chronic blood loss Is this a current diagnosis for this admission?: Yes Plan: Hemoglobin has trended down however remains above 7.5. We will continue to monitor and transfuse as needed. EGD shows no acute etiology (2) Elevated troponin I level Is this a current diagnosis for this admission?: Yes Plan: F/u with Cardiology (3) Metastatic cancer Is this a current diagnosis for this admission?: Yes Plan: s/p liver biopsy today. Will follow up (4) Upper GI hemorrhage Is this a current diagnosis for this admission?: Yes Plan: Likely secondary to peptic ulcer disease, non bleeding ulcer (5) Protein calorie malnutrition Qualifiers: Protein-calorie malnutrition severity: moderate Qualified Code(s): E44.0 - Moderate protein-calorie malnutrition Is this a current diagnosis for this admission?: Yes Plan: Due to underlying disease, likely metastatic cancer (6) Non-ST elevation myocardial infarction (NSTEMI) Is this a current diagnosis for this admission?: Yes (7) Pain Is this a current diagnosis for this admission?: Yes Plan: Condyle to likely metastasis. Her analgesia still being adjusted. We will continue to adjust her medications as needed - Plan Summary Summary: She is status post EGD with nonbleeding ulcers noted, CT chest reveals no gen mass and CT of the head is negative. CT-guided liver biopsy is pending. CT scan of the chest shows irregular areas of consolidation around the bronchi that extends from the hilum into the superior aspect of the right upper lobe right middle left lower and left lower and left upper lobe. Differential considerations include multifocal pneumonia and lymphangitic carcinomatosis. Th ere is also probable pathologic compression fractures of the T10, T11 L1 and L2 vertebral bodies as well as enlarged right hilar lymph node. In terms of elevated troponin no further acute cardiac work-up indicated and will arrange for outpatient follow-up with cardiology once discharged CT-guided biopsy scheduled for today 11/15 - Time Time Spent with patient: 15-24 minutes Anticipated discharge: Home Within: within 48 hours
[2019-11-17] MEDS: HYDROMORPHONE HCL INJ/PF 2 MG/ML AMPULE IV PRN (01:26)
[2019-11-17] MEDS: OXYCODONE HCL IR 5 MG TABLET PO PRN (08:15)
--- NOTE | 2019-11-17 09:28 | PDOC PROGRESS REPORT ---
Subjective Progress Note for:: 11/17/19 Subjective:: pt still had pain over last 24 hours. talked w pt over phone, will increase her MSSR 30mg q 8 hours Reason For Visit: ANEMIA,GI BLEED, POSSIBLE METASTATIC LUNG CANCER Physical Exam Vital Signs: Temp Pulse Resp BP Pulse Ox 97.3 F 118 H 26 H 131/60 H 92 11/17/19 07:20 11/17/19 07:20 11/17/19 07:20 11/17/19 07:20 11/17/19 07:20 Intake & Output 11/16/19 11/17/19 11/18/19 06:59 06:59 06:59 Intake Total 1550 672 Output Total 0 0 Balance 1550 672 Weight 61.7 kg 63 kg Results Laboratory Results: 11/16/19 05:58 11/16/19 05:58 11/13/19 11/13/19 11/13/19 09:35 14:57 20:07 Troponin I 0.161 0.166 0.152 Impressions: Abdomen/Pelvis CT 11/13/19 09:31 IMPRESSION: 1. Mass in the right lung base recommend cc chest for further evaluation. Neoplasm is thought to be most likely. 2. Hepatomegaly with widespread metastatic disease throughout the liver. 3. Aortic adenopathy suspicious for metastatic disease. 4. Probable bony metastatic disease. Chest CT 11/14/19 00:00 IMPRESSION: 1. Irregular area of consolidation centered around the bronchi that extends from the hilum into the superior aspect of the right upper lobe and patchier peribronchial opacities scattered throughout the remainder of the right upper lobe and in the right middle, left lower, and left lower and left upper lobe. These opacities are nonspecific and differential to consider include multifocal pneumonia and lymphangitic carcinomatosis. 2. Probable pathologic compression fractures of the T10, T11 and L1 and L2 vertebral bodies. 3. Enlarged right hilar lymph node that measures 12 mm in short axis diameter. Head CT 11/14/19 00:00 IMPRESSION: No acute intracranial abnormality. EVIDENCE OF ACUTE STROKE: NO. Guidance Needle Placement CT 11/16/19 00:00 IMPRESSION: CT GUIDED TARGETED LIVER BIOPSY PERFORMED ABOVE. PATHOLOGY PENDING. NO IMMEDIATE COMPLICATIONS. Liver Biopsy CT 11/16/19 00:00 IMPRESSION: CT GUIDED TARGETED LIVER BIOPSY PERFORMED ABOVE. PATHOLOGY PENDING. NO IMMEDIATE COMPLICATIONS. Assessment & Plan - Diagnosis (1) Metastatic cancer Is this a current diagnosis for this admission?: Yes Plan: awaiting bx results, will have fu as oupt next week in office (2) Anemia Qualifiers: Iron deficiency anemia type: chronic blood loss Is this a current diagnosis for this admission?: Yes Plan: hb stable post tx (3) Pain, neoplasm-related Is this a current diagnosis for this admission?: Yes Plan: inc MSSR, cont oxy, d/w hospitalist team - Time Time Spent with patient: 15-24 minutes
[2019-11-17] MEDS: SENNOSIDES/DOCUSATE 8.6-50 MG 1 EACH TABLET PO SCH (09:39)
[2019-11-17] MEDS: PANTOPRAZOLE SODIUM 40 MG VIAL IV SCH ×2 (09:39→22:38)
[2019-11-17] MEDS: MORPHINE SULFATE SR 15 MG TABLET PO SCH (09:39)
[2019-11-17] MEDS ORDERED: MORPHINE SULFATE SR 30 MG TABLET PO SCH (10:30)
--- NOTE | 2019-11-17 11:44 | PDOC PROGRESS REPORT ---
Subjective Progress Note for:: 11/17/19 Subjective:: Complaining of generalized pain. Feels better today Reason For Visit: ANEMIA,GI BLEED, POSSIBLE METASTATIC LUNG CANCER Physical Exam Vital Signs: Temp Pulse Resp BP Pulse Ox 97.3 F 118 H 26 H 131/60 H 92 11/17/19 07:20 11/17/19 07:20 11/17/19 07:20 11/17/19 07:20 11/17/19 07:20 Intake & Output 11/16/19 11/17/19 11/18/19 06:59 06:59 06:59 Intake Total 1550 672 Output Total 0 0 Balance 1550 672 Weight 61.7 kg 63 kg General appearance: PRESENT: no acute distress Head exam: PRESENT: atraumatic, normocephalic Eye exam: PRESENT: conjunctiva pink, EOMI, PERRLA. ABSENT: scleral icterus Ear exam: PRESENT: normal external ear exam Mouth exam: PRESENT: moist, tongue midline Neck exam: ABSENT: carotid bruit, JVD, lymphadenopathy, thyromegaly Respiratory exam: PRESENT: clear to auscultation erasmo. ABSENT: rales, rhonchi, wheezes Cardiovascular exam: PRESENT: RRR, +S1, +S2. ABSENT: diastolic murmur, rubs, systolic murmur Pulses: PRESENT: normal dorsalis pedis pul Vascular exam: PRESENT: normal capillary refill GI/Abdominal exam: PRESENT: normal bowel sounds, soft. ABSENT: distended, guarding, mass, organolmegaly, rebound, tenderness Rectal exam: PRESENT: deferred Extremities exam: PRESENT: full ROM. ABSENT: calf tenderness, clubbing, pedal edema Neurological exam: PRESENT: alert, awake, oriented to person, oriented to place, oriented to time, oriented to situation, CN II-XII grossly intact. ABSENT: motor sensory deficit Psychiatric exam: PRESENT: appropriate affect, normal mood. ABSENT: homicidal ideation, suicidal ideation Skin exam: PRESENT: dry, intact, warm. ABSENT: cyanosis, rash Results Laboratory Results: 11/16/19 05:58 11/16/19 05:58 11/13/19 11/13/19 11/13/19 09:35 14:57 20:07 Troponin I 0.161 0.166 0.152 Impressions: Abdomen/Pelvis CT 11/13/19 09:31 IMPRESSION: 1. Mass in the right lung base recommend cc chest for further evaluation. Neoplasm is thought to be most likely. 2. Hepatomegaly with widespread metastatic disease throughout the liver. 3. Aortic adenopathy suspicious for metastatic disease. 4. Probable bony metastatic disease. Chest CT 11/14/19 00:00 IMPRESSION: 1. Irregular area of consolidation centered around the bronchi that extends from the hilum into the superior aspect of the right upper lobe and patchier peribronchial opacities scattered throughout the remainder of the right upper lobe and in the right middle, left lower, and left lower and left upper lobe. These opacities are nonspecific and differential to consider include multifocal pneumonia and lymphangitic carcinomatosis. 2. Probable pathologic compression fractures of the T10, T11 and L1 and L2 vertebral bodies. 3. Enlarged right hilar lymph node that measures 12 mm in short axis diameter. Head CT 11/14/19 00:00 IMPRESSION: No acute intracranial abnormality. EVIDENCE OF ACUTE STROKE: NO. Guidance Needle Placement CT 11/16/19 00:00 IMPRESSION: CT GUIDED TARGETED LIVER BIOPSY PERFORMED ABOVE. PATHOLOGY PENDING. NO IMMEDIATE COMPLICATIONS. Liver Biopsy CT 11/16/19 00:00 IMPRESSION: CT GUIDED TARGETED LIVER BIOPSY PERFORMED ABOVE. PATHOLOGY PENDING. NO IMMEDIATE COMPLICATIONS. Assessment and Plan - Diagnosis (1) Anemia Qualifiers: Iron deficiency anemia type: chronic blood loss Is this a current diagnosis for this admission?: Yes (2) Elevated troponin I level Is this a current diagnosis for this admission?: Yes (3) Metastatic cancer Is this a current diagnosis for this admission?: Yes (4) Upper GI hemorrhage Is this a current diagnosis for this admission?: Yes (5) Protein calorie malnutrition Qualifiers: Protein-calorie malnutrition severity: moderate Qualified Code(s): E44.0 - Moderate protein-calorie malnutrition Is this a current diagnosis for this admission?: Yes (6) Non-ST elevation myocardial infarction (NSTEMI) Is this a current diagnosis for this admission?: Yes (7) Pain Is this a current diagnosis for this admission?: Yes Plan: Secondary to likely metastasis. Her analgesia still being adjusted. We will continue to adjust her medications as needed If pain controlled plan to dc in am - Plan Summary Summary: She is status post EGD with nonbleeding ulcers noted, CT chest reveals no gen mass and CT of the head is negative. CT-guided liver biopsy is pending. CT scan of the chest shows irregular areas of consolidation around the bronchi that extends from the hilum into the superior aspect of the right upper lobe right middle left lower and left lower and left upper lobe. Differential considerations include multifocal pneumonia and lymphangitic carcinomatosis. There is also probable pathologic compression fractures of the T10, T11 L1 and L2 vertebral bodies as well as enlarged right hilar lymph node. In terms of elevated troponin no further acute cardiac work-up indicated and will arrange for outpatient follow-up with cardiology once discharged CT-guided biopsy done on 11/15
[2019-11-17] MEDS: MORPHINE SULFATE SR 30 MG TABLET PO SCH ×2 (13:24→21:20)
[2019-11-18] MEDS: MORPHINE SULFATE SR 30 MG TABLET PO SCH ×3 (06:12→21:02)
[2019-11-18] MEDS: PANTOPRAZOLE SODIUM 40 MG VIAL IV SCH (09:07)
[2019-11-18] MEDS: SENNOSIDES/DOCUSATE 8.6-50 MG 1 EACH TABLET PO SCH (09:07)
[2019-11-18 10:15] LABS: HEMOGLOBIN 10.5 g/dL (12.0-15.5); MEAN CORPUSCULAR HEMOGLOBIN 27.3 pg (27.0-33.4); MEAN CORPUSCULAR HGB CONC 32.7 g/dL (32.0-36.0); MEAN CORPUSCULAR VOLUME 84 fl (80-97); PLATELET COUNT 237 10^3/uL (150-450); RED BLOOD COUNT 3.83 10^6/uL (3.72-5.28); RED CELL DISTRIBUTION WIDTH 18.1 % (11.5-14.0); WHITE BLOOD COUNT 14.3 10^3/uL (4.0-10.5)
[2019-11-18 10:25] LABS: ANION GAP 9 (5-19); BLOOD UREA NITROGEN 22 mg/dL (7-20); CALCIUM 9.3 mg/dL (8.4-10.2); CARBON DIOXIDE 29 mmol/L (22-30); CHLORIDE 93 mmol/L (98-107); GLUCOSE 139 mg/dL (75-110); POTASSIUM 4.3 mmol/L (3.6-5.0)
[2019-11-18 10:33] LABS: ABSOLUTE LYMPHOCYTES# (MANUAL) 1.3 10^3/uL (0.5-4.7); ABSOLUTE MONOCYTES # (MANUAL) 1.3 10^3/uL (0.1-1.4); BASOPHILS % (MANUAL) 2 % (0-2); EOSINOPHILS % (MANUAL) 0 % (0-6); LYMPHOCYTES % (MANUAL) 9 % (13-45); MONOCYTES % (MANUAL) 9 % (3-13); SEGMENTED NEUTROPHILS % (MAN) 80 % (42-78); TOTAL CELLS COUNTED 100
[2019-11-18 10:34] LABS: ANISOCYTOSIS 2+; PLATELET COMMENT ADEQUATE
[2019-11-18] MEDS ORDERED: BISACODYL 10 MG SUPP.RECT PR ONE (13:45)
[2019-11-18] MEDS ORDERED: LACTULOSE SYRUP 20 GM/30 ML UDCUP PO PRN (15:26)
--- NOTE | 2019-11-18 18:05 | PDOC PROGRESS REPORT ---
Subjective Progress Note for:: 11/18/19 Subjective:: Complaining of generalized pain. Feels better today patient complained that she has not had any bowel movement. Her medications were also adjusted for optimal blood pressure control Reason For Visit: ANEMIA,GI BLEED, POSSIBLE METASTATIC LUNG CANCER Physical Exam Vital Signs: Temp Pulse Resp BP Pulse Ox 98.7 F 100 18 129/74 H 91 L 11/18/19 07:53 11/18/19 07:53 11/18/19 07:53 11/18/19 07:53 11/18/19 07:53 Intake & Output 11/17/19 11/18/19 11/19/19 06:59 06:59 06:59 Intake Total 672 1060 Output Total 0 480 Balance 672 580 Weight 63 kg 62.4 kg General appearance: PRESENT: no acute distress Head exam: PRESENT: atraumatic Eye exam: PRESENT: conjunctiva pink, PERRLA. ABSENT: scleral icterus Mouth exam: PRESENT: tongue midline Neck exam: ABSENT: carotid bruit, JVD, lymphadenopathy, thyromegaly Respiratory exam: PRESENT: clear to auscultation erasmo. ABSENT: rales, rhonchi, wheezes Cardiovascular exam: PRESENT: RRR. ABSENT: diastolic murmur, rubs, systolic murmur Pulses: PRESENT: normal dorsalis pedis pul Vascular exam: PRESENT: normal capillary refill GI/Abdominal exam: PRESENT: normal bowel sounds, soft. ABSENT: distended, guarding, mass, organolmegaly, rebound, tenderness Rectal exam: PRESENT: deferred Extremities exam: PRESENT: full ROM. ABSENT: calf tenderness, clubbing, pedal edema Neurological exam: PRESENT: alert, awake, oriented to person, oriented to place, oriented to time, oriented to situation. ABSENT: motor sensory deficit Psychiatric exam: PRESENT: appropriate affect, normal mood. ABSENT: homicidal ideation, suicidal ideation Skin exam: PRESENT: dry, intact, warm. ABSENT: cyanosis, rash Results Laboratory Results: 11/18/19 09:54 11/18/19 09:54 11/18/19 11/18/19 09:54 09:54 WBC 14.3 H RBC 3.83 Hgb 10.5 L Hct 32.0 L MCV 84 MCH 27.3 MCHC 32.7 RDW 18.1 H Plt Count 237 Seg Neutrophils % Not Reportable Sodium 131.0 L Potassium 4.3 Chloride 93 L Carbon Dioxide 29 Anion Gap 9 BUN 22 H Creatinine 0.56 Est GFR ( Amer) > 60 Glucose 139 H Calcium 9.3 11/13/19 11/13/19 11/13/19 09:35 14:57 20:07 Troponin I 0.161 0.166 0.152 Impressions: Abdomen/Pelvis CT 11/13/19 09:31 IMPRESSION: 1. Mass in the right lung base recommend cc chest for further evaluation. Neoplasm is thought to be most likely. 2. Hepatomegaly with widespread metastatic disease throughout the liver. 3. Aortic adenopathy suspicious for metastatic disease. 4. Probable bony metastatic disease. Chest CT 11/14/19 00:00 IMPRESSION: 1. Irregular area of consolidation centered around the bronchi that extends from the hilum into the superior aspect of the right upper lobe and patchier peribronchial opacities scattered throughout the remainder of the right upper lobe and in the right middle, left lower, and left lower and left upper lobe. These opacities are nonspecific and differential to consider include m ultifocal pneumonia and lymphangitic carcinomatosis. 2. Probable pathologic compression fractures of the T10, T11 and L1 and L2 vertebral bodies. 3. Enlarged right hilar lymph node that measures 12 mm in short axis diameter. Head CT 11/14/19 00:00 IMPRESSION: No acute intracranial abnormality. EVIDENCE OF ACUTE STROKE: NO. Guidance Needle Placement CT 11/16/19 00:00 IMPRESSION: CT GUIDED TARGETED LIVER BIOPSY PERFORMED ABOVE. PATHOLOGY PENDING. NO IMMEDIATE COMPLICATIONS. Liver Biopsy CT 11/16/19 00:00 IMPRESSION: CT GUIDED TARGETED LIVER BIOPSY PERFORMED ABOVE. PATHOLOGY PENDING. NO IMMEDIATE COMPLICATIONS. Assessment and Plan - Diagnosis (1) Anemia Qualifiers: Iron deficiency anemia type: chronic blood loss Is this a current diagnosis for this admission?: Yes (2) Elevated troponin I level Is this a current diagnosis for this admission?: Yes (3) Metastatic cancer Is this a current diagnosis for this admission?: Yes (4) Upper GI hemorrhage Is this a current diagnosis for this admission?: Yes (5) Protein calorie malnutrition Qualifiers: Protein-calorie malnutrition severity: moderate Qualified Code(s): E44.0 - Moderate protein-calorie malnutrition Is this a current diagnosis for this admission?: Yes (6) Non-ST elevation myocardial infarction (NSTEMI) Is this a current diagnosis for this admission?: Yes (7) Pain Is this a current diagnosis for this admission?: Yes - Plan Summary Summary: She is status post EGD with nonbleeding ulcers noted, CT chest reveals no gen mass and CT of the head is negative. CT-guided liver biopsy is pending. CT scan of the chest shows irregular areas of consolidation around the bronchi that extends from the hilum into the superior aspect of the right upper lobe right m iddle left lower and left lower and left upper lobe. Differential considerations include multifocal pneumonia and lymphangitic carcinomatosis. There is also probable pathologic compression fractures of the T10, T11 L1 and L2 vertebral bodies as well as enlarged right hilar lymph node. In terms of elevated troponin no further acute cardiac work-up indicated and will arrange for outpatient follow-up with cardiology once discharged CT-guided biopsy done on 11/15 Globin remained stable. Her white count is noted to be elevated however there is no evidence of any acute infection. At this point we are just waiting for pain to be better controlled and once patient is stabilized hopefully in a.m. she can be discharged home
[2019-11-19] MEDS: OXYCODONE HCL IR 5 MG TABLET PO PRN ×2 (03:47→12:09)
[2019-11-19] MEDS: MORPHINE SULFATE SR 30 MG TABLET PO SCH ×3 (05:17→22:01)
[2019-11-19] MEDS: PANTOPRAZOLE SODIUM 40 MG TABLET.DR PO SCH (05:18)
--- NOTE | 2019-11-19 08:19 | PDOC PROGRESS REPORT ---
Subjective Progress Note for:: 11/19/19 Subjective:: Patient seems to be doing better pain control today, [facility] eval is completed, hoping that pt can d/c home today, I have written for [facility] and oxycodone rx. Will give appt for us 2 days post d./c Reason For Visit: ANEMIA,GI BLEED, POSSIBLE METASTATIC LUNG CANCER Physical Exam Vital Signs: Temp Pulse Resp BP Pulse Ox 97.5 F 114 H 16 144/75 H 98 11/18/19 23:58 11/19/19 02:00 11/18/19 23:58 11/18/19 23:58 11/18/19 23:58 Intake & Output 11/18/19 11/19/19 11/20/19 06:59 06:59 06:59 Intake Total 1060 780 Output Total 480 Balance 580 780 Weight 62.4 kg 62 kg General appearance: PRESENT: no acute distress, well-developed, well-nourished Head exam: PRESENT: atraumatic, normocephalic Eye exam: PRESENT: conjunctiva pink, EOMI, PERRLA. ABSENT: scleral icterus Ear exam: PRESENT: normal external ear exam Mouth exam: PRESENT: moist, tongue midline Neck exam: ABSENT: carotid bruit, JVD, lymphadenopathy, thyromegaly Respiratory exam: PRESENT: clear to auscultation erasmo. ABSENT: rales, rhonchi, wheezes Cardiovascular exam: PRESENT: RRR. ABSENT: diastolic murmur, rubs, systolic murmur Pulses: PRESENT: normal dorsalis pedis pul Vascular exam: PRESENT: normal capillary refill GI/Abdominal exam: PRESENT: normal bowel sounds, soft. ABSENT: distended, guarding, mass, organolmegaly, rebound, tenderness Rectal exam: PRESENT: deferred Extremities exam: PRESENT: full ROM. ABSENT: calf tenderness, clubbing, pedal edema Neurological exam: PRESENT: alert, awake, oriented to person, oriented to place, oriented to time, oriented to situation, CN II-XII grossly intact. ABSENT: motor sensory deficit Psychiatric exam: PRESENT: appropriate affect, normal mood. ABSENT: homicidal ideation, suicidal ideation Skin exam: PRESENT: dry, intact, warm. ABSENT: cyanosis, rash Results Laboratory Results: 11/18/19 09:54 11/18/19 09:54 11/18/19 11/18/19 09:54 09:54 WBC 14.3 H RBC 3.83 Hgb 10.5 L Hct 32.0 L MCV 84 MCH 27.3 MCHC 32.7 RDW 18.1 H Plt Count 237 Seg Neutrophils % Not Reportable Sodium 131.0 L Potassium 4.3 Chloride 93 L Carbon Dioxide 29 Anion Gap 9 BUN 22 H Creatinine 0.56 Est GFR ( Amer) > 60 Glucose 139 H Calcium 9.3 11/13/19 11/13/19 11/13/19 09:35 14:57 20:07 Troponin I 0.161 0.166 0.152 Impressions: Abdomen/Pelvis CT 11/13/19 09:31 IMPRESSION: 1. Mass in the right lung base recommend cc chest for further evaluation. Neoplasm is thought to be most likely. 2. Hepatomegaly with widespread metastatic disease throughout the liver. 3. Aortic adenopathy suspicious for metastatic disease. 4. Probable bony metastatic disease. Chest CT 11/14/19 00:00 IMPRESSION: 1. Irregular area of consolidation centered around the bronchi that extends from the hilum into the superior aspect of the right upper lobe and patchier peribronchial opacities scattered throughout the remainder of the right upper lobe and in the right middle, left lower, and left lower and left upper lo be. These opacities are nonspecific and differential to consider include multifocal pneumonia and lymphangitic carcinomatosis. 2. Probable pathologic compression fractures of the T10, T11 and L1 and L2 vertebral bodies. 3. Enlarged right hilar lymph node that measures 12 mm in short axis diameter. Head CT 11/14/19 00:00 IMPRESSION: No acute intracranial abnormality. EVIDENCE OF ACUTE STROKE: NO. Guidance Needle Placement CT 11/16/19 00:00 IMPRESSION: CT GUIDED TARGETED LIVER BIOPSY PERFORMED ABOVE. PATHOLOGY PENDING. NO IMMEDIATE COMPLICATIONS. Liver Biopsy CT 11/16/19 00:00 IMPRESSION: CT GUIDED TARGETED LIVER BIOPSY PERFORMED ABOVE. PATHOLOGY PENDING. NO IMMEDIATE COMPLICATIONS. Assessment & Plan - Diagnosis (1) Metastatic cancer Is this a current diagnosis for this admission?: Yes Plan: Awaiting final path (2) Anemia Qualifiers: Iron deficiency anemia type: chronic blood loss Is this a current diagnosis for this admission?: Yes Plan: stable post tx (3) Pain, neoplasm-related Is this a current diagnosis for this admission?: Yes Plan: Pain control now seems appropriate, rx written for pt - Time Time Spent with patient: 15-24 minutes
[2019-11-19] MEDS: SENNOSIDES/DOCUSATE 8.6-50 MG 1 EACH TABLET PO SCH (09:34)
--- NOTE | 2019-11-19 10:20 | PDOC PROGRESS REPORT ---
Subjective Progress Note for:: 11/19/19 Subjective:: Complaining of generalized pain. Feels better today patient complained that she has not had any bowel movement. Her medications were also adjusted for optimal blood pressure control 11/18 patient feels that her breathing is still not stable enough for her to be discharged. She will need home oxygen. Appears to have some social issues at home that will need to be dealt with. She lives with her daughter and at this point it looks like no specific arrangements have been made for her care. She is still complaining of some pain and at this point she feels that she is not quite ready to be discharged given all this issues. Reason For Visit: ANEMIA,GI BLEED, POSSIBLE METASTATIC LUNG CANCER Physical Exam Vital Signs: Temp Pulse Resp BP Pulse Ox 97.5 F 103 H 16 144/75 H 98 11/18/19 23:58 11/19/19 07:00 11/18/19 23:58 11/18/19 23:58 11/18/19 23:58 Intake & Output 11/18/19 11/19/19 11/20/19 06:59 06:59 06:59 Intake Total 1060 780 Output Total 480 Balance 580 780 Weight 62.4 kg 62 kg General appearance: PRESENT: no acute distress, thin Head exam: PRESENT: atraumatic, normocephalic Eye exam: PRESENT: conjunctiva pink, EOMI, PERRLA. ABSENT: scleral icterus Ear exam: PRESENT: normal external ear exam Mouth exam: PRESENT: moist, tongue midline Neck exam: ABSENT: carotid bruit, JVD, lymphadenopathy, thyromegaly Respiratory exam: PRESENT: clear to auscultation erasmo. ABSENT: rales, rhonchi, wheezes Cardiovascular exam: PRESENT: RRR, +S1, +S2. ABSENT: diastolic murmur, rubs, systolic murmur Pulses: PRESENT: normal dorsalis pedis pul Vascular exam: PRESENT: normal capillary refill GI/Abdominal exam: PRESENT: normal bowel sounds, soft, tenderness. ABSENT: distended, guarding, mass, organolmegaly, rebound Rectal exam: PRESENT: deferred Extremities exam: PRESENT: full ROM. ABSENT: calf tenderness, clubbing, pedal edema Neurological exam: PRESENT: alert, awake, oriented to person, oriented to place, oriented to time, oriented to situation, CN II-XII grossly intact. ABSENT: motor sensory deficit Psychiatric exam: PRESENT: appropriate affect, normal mood. ABSENT: homicidal ideation, suicidal ideation Skin exam: PRESENT: dry, intact, warm. ABSENT: cyanosis, rash Results Laboratory Results: 11/18/19 09:54 11/18/19 09:54 11/18/19 11/18/19 09:54 09:54 WBC 14.3 H RBC 3.83 Hgb 10.5 L Hct 32.0 L MCV 84 MCH 27.3 MCHC 32.7 RDW 18.1 H Plt Count 237 Seg Neutrophils % Not Reportable Sodium 131.0 L Potassium 4.3 Chloride 93 L Carbon Dioxide 29 Anion Gap 9 BUN 22 H Creatinine 0.56 Est GFR ( Amer) > 60 Glucose 139 H Calcium 9.3 11/13/19 11/13/19 11/13/19 09:35 14:57 20:07 Troponin I 0.161 0.166 0.152 Impressions: Abdomen/Pelvis CT 11/13/19 09:31 IMPRESSION: 1. Mass in the right lung base recommend cc chest for further evaluation. Neoplasm is thought to be most likely. 2. Hepatomegaly with widespread metastatic disease throughout the liver. 3. Aortic adenopathy suspicious for metastatic disease. 4. Probable bony metastatic disease. Chest CT 11/14/19 00:00 IMPRESSION: 1. Irregular area of consolidation centered around the bronchi that extends from the hilum into the superior aspect of the right upper lobe and patchier peribronchial opacities scattered throughout the remainder of the right upper lobe and in the right middle, left lower, and left lower and left upper lobe. These opacities are nonspecific and differential to consider include multifocal pneumonia and lymphangitic carcinomatosis. 2. Probable pathologic compression fractures of the T10, T11 and L1 and L2 vertebral bodies. 3. Enlarged right hilar lymph node that measures 12 mm in short axis diameter. Head CT 11/14/19 00:00 IMPRESSION: No acute intracranial abnormality. EVIDENCE OF ACUTE STROKE: NO. Guidance Needle Placement CT 11/16/19 00:00 IMPRESSION: CT GUIDED TARGETED LIVER BIOPSY PERFORMED ABOVE. PATHOLOGY PENDING. NO IMMEDIATE COMPLICATIONS. Liver Biopsy CT 11/16/19 00:00 IMPRESSION: CT GUIDED TARGETED LIVER BIOPSY PERFORMED ABOVE. PATHOLOGY PENDING. NO IMMEDIATE COMPLICATIONS. Assessment and Plan - Diagnosis (1) Anemia Qualifiers: Iron deficiency anemia type: chronic blood loss Is this a current diagnosis for this admission?: Yes Plan: anemia likely secondary to malignancy, chronic blood loss hemoglobin has trended down however remains above 7.5. We will continue to monitor and transfuse as needed. EGD shows no acute etiology Hemoglobin remains relatively stable. (2) Elevated troponin I level Is this a current diagnosis for this admission?: Yes Plan: F/u with Cardiology as outpatient (3) Metastatic cancer Is this a current diagnosis for this admission?: Yes Plan: s/p liver biopsy, results still pending. She can follow-up with Dr. Marcial as outpatient (4) Upper GI hemorrhage Is this a current diagnosis for this admission?: Yes (5) Protein calorie malnutrition Qualifiers: Protein-calorie malnutrition severity: moderate Qualified Code(s): E44.0 - Moderate protein-calorie malnutrition Is this a current diagnosis for this admission?: Yes Plan: Due to underlying disease, likely metastatic cancer (6) Non-ST elevation myocardial infarction (NSTEMI) Is this a current diagnosis for this admission?: Yes (7) Pain Is this a current diagnosis for this admission?: Yes Plan: Secondary to likely metastasis. Her analgesia still being adjusted. We will continue to adjust her medications as needed (8) Acute respiratory failure with hypoxemia Is this a current diagnosis for this admission?: Yes Plan: Patient will need home oxygen and this is to be arranged for her - Plan Summary Summary: She is status post EGD with nonbleeding ulcers noted, CT chest reveals no gen mass and CT of the head is negative. CT-guided liver biopsy is pending. CT scan of the chest shows irregular areas of consolidation around the bronchi that extends from the hilum into the superior aspect of the right upper lobe right middle left lower and left lower and left upper lobe. Differential consider ations include multifocal pneumonia and lymphangitic carcinomatosis. There is also probable pathologic compression fractures of the T10, T11 L1 and L2 vertebral bodies as well as enlarged right hilar lymph node. In terms of elevated troponin no further acute cardiac work-up indicated and will arrange for outpatient follow-up with cardiology once discharged CT-guided biopsy done on 11/15 Hemoglobin remained stable. Her white count is noted to be elevated however there is no evidence of any acute infection. At this point we are just waiting for pain to be better controlled and once patient is stabilized hopefully in a.m. she can be discharged home. 11/18 patient still complaining of dyspnea and she also appears to have some social issues. Social service has been consulted and we are waiting for feedback and response at this time.
[2019-11-20] MEDS: HYDROMORPHONE HCL INJ/PF 2 MG/ML AMPULE IV PRN (04:04)
[2019-11-20] MEDS: MORPHINE SULFATE SR 30 MG TABLET PO SCH ×2 (05:55→16:59)
[2019-11-20] MEDS: PANTOPRAZOLE SODIUM 40 MG TABLET.DR PO SCH (05:55)
--- NOTE | 2019-11-20 08:24 | PDOC PROGRESS REPORT ---
Subjective Progress Note for:: 11/20/19 Subjective:: Pt still weak, SOB, having pain, seems better controlled. Received call from path, dx is adenoca of lung c/w imaging reports. Discussed with pt, need to start systemic chemo KHUSHBOO. Will plan to treat in next 24-48 hours while admitted. Reason For Visit: ANEMIA,GI BLEED, POSSIBLE METASTATIC LUNG CANCER Physical Exam Vital Signs: Temp Pulse Resp BP Pulse Ox 98.2 F 105 H 24 H 155/89 H 94 11/20/19 03:15 11/20/19 03:15 11/20/19 03:15 11/20/19 03:15 11/20/19 04:21 Intake & Output 11/19/19 11/20/19 11/21/19 06:59 06:59 06:59 Intake Total 780 886 Balance 780 886 Weight 62 kg 62.2 kg General appearance: PRESENT: no acute distress, well-developed, well-nourished Head exam: PRESENT: atraumatic, normocephalic Eye exam: PRESENT: conjunctiva pink, EOMI, PERRLA. ABSENT: scleral icterus Ear exam: PRESENT: normal external ear exam Mouth exam: PRESENT: moist, tongue midline Neck exam: ABSENT: carotid bruit, JVD, lymphadenopathy, thyromegaly Respiratory exam: PRESENT: clear to auscultation erasmo. ABSENT: rales, rhonchi, wheezes Cardiovascular exam: PRESENT: RRR. ABSENT: diastolic murmur, rubs, systolic murmur Pulses: PRESENT: normal dorsalis pedis pul Vascular exam: PRESENT: normal capillary refill GI/Abdominal exam: PRESENT: normal bowel sounds, soft. ABSENT: distended, guarding, mass, organolmegaly, rebound, tenderness Rectal exam: PRESENT: deferred Extremities exam: PRESENT: full ROM. ABSENT: calf tenderness, clubbing, pedal edema Neurological exam: PRESENT: alert, awake, oriented to person, oriented to place, oriented to time, oriented to situation, CN II-XII grossly intact. ABSENT: motor sensory deficit Psychiatric exam: PRESENT: appropriate affect, normal mood. ABSENT: homicidal ideation, suicidal ideation Skin exam: PRESENT: dry, intact, warm. ABSENT: cyanosis, rash Results Laboratory Results: 11/18/19 09:54 11/18/19 09:54 05/06/2211/13/19 11/13/19 09:35 14:57 20:07 Troponin I 0.161 0.166 0.152 Impressions: Abdomen/Pelvis CT 11/13/19 09:31 IMPRESSION: 1. Mass in the right lung base recommend cc chest for further evaluation. Neoplasm is thought to be most likely. 2. Hepatomegaly with widespread metastatic disease throughout the liver. 3. Aortic adenopathy suspicious for metastatic disease. 4. Probable bony metastatic disease. Chest CT 11/14/19 00:00 IMPRESSION: 1. Irregular area of consolidation centered around the bronchi that extends from the hilum into the superior aspect of the right upper lobe and patchier peribronchial opacities scattered throughout the remainder of the right upper lobe and in the right middle, left lower, and left lower and left upper lobe. These opacities are nonspecific and differential to consider include multifocal pneumonia and lymphangitic carcinomatosis. 2. Probable pathologic compression fractures of the T10, T11 and L1 and L2 vertebral bodies. 3. Enlarged right hilar lymph node that measures 12 mm in short axis diameter. Head CT 11/14/19 00:00 IMPRESSION: No acute intracranial abnormality. EVIDENCE OF ACUTE STROKE: NO. Guidance Needle Placement CT 11/16/19 00:00 IMPRESSION: CT GUIDED TARGETED LIVER BIOPSY PERFORMED ABOVE. PATHOLOGY PENDING. NO IMMEDIATE COMPLICATIONS. Liver Biopsy CT 11/16/19 00:00 IMPRESSION: CT GUIDED TARGETED LIVER BIOPSY PERFORMED ABOVE. PATHOLOGY PENDING. NO IMMEDIATE COMPLICATIONS. Assessment & Plan - Diagnosis (1) Primary cancer of right upper lobe of lung Is this a current diagnosis for this admission?: Yes Plan: Stage IV lung ca. We need to start chemo KHUSHBOO, I will place orders for pt to start on carbo AUC 5 + Taxol 175mg/m2 + Keytruda 200mg IV. We will give orders to pharmacy to order and if possible, start tomorrow but maybe . Pt agrees to this therapy. (2) Pain, neoplasm-related Is this a current diagnosis for this admission?: Yes Plan: Cont current pain control - Time Time Spent with patient: 15-24 minutes - Inpatient Certification Based on my medical assessment, after consideration of the patient's comorbidities, presenting symptoms, or acuity I expect that the services needed warrant INPATIENT care.: Yes I certify that my determination is in accordance with my understanding of Medicare's requirements for reasonable and necessary INPATIENT services [42 CFR 412.3e].: Yes Medical Necessity: Need for Pain Control, Risk of Complication if Not Cared For in Hospital
[2019-11-20] MEDS: OXYCODONE HCL IR 5 MG TABLET PO PRN ×2 (09:00→16:56)
[2019-11-20] MEDS ORDERED: PEMBROLIZUMAB 200 MG in NORMAL SALINE 50 ML IV PRN (09:53)
[2019-11-20] MEDS ORDERED: NORMAL SALINE 250 ML IV PRN (09:54)
[2019-11-20] MEDS ORDERED: PALONOSETRON 0.25 MG/5 ML SDV IV PRN (09:55)
[2019-11-20] MEDS ORDERED: DEXAMETHASONE SOD PHOSPHATE 20 MG in NORMAL SALINE 50 ML IV PRN (09:56)
[2019-11-20] MEDS ORDERED: DIPHENHYDRAMINE HCL 50 MG in NORMAL SALINE 50 ML IV PRN (09:57)
[2019-11-20] MEDS ORDERED: FAMOTIDINE/PF 20 MG in NORMAL SALINE 50 ML IV PRN (09:57)
[2019-11-20] MEDS ORDERED: FOSAPREPITANT DIMEGLUMINE 150 MG in NORMAL SALINE 150 ML IV PRN (09:58)
[2019-11-20] MEDS ORDERED: NORMAL SALINE IV PRN ×2 (10:00→10:02)
[2019-11-20] MEDS ORDERED: PACLITAXEL SEMI SYNTHETIC IV PRN (10:00)
[2019-11-20] MEDS ORDERED: CARBOPLATIN IV PRN (10:02)
[2019-11-20] MEDS: SENNOSIDES/DOCUSATE 8.6-50 MG 1 EACH TABLET PO SCH (16:59)
--- NOTE | 2019-11-20 18:30 | PDOC PROGRESS REPORT ---
Subjective Progress Note for:: 11/20/19 Subjective:: Patient was started on chemotherapy today. Has become more confused today. Has some nausea. Feels very fatigued. Reason For Visit: TAXOL/CARBO/KEYTRUDA/PIV Physical Exam Vital Signs: Temp Pulse Resp BP Pulse Ox 98.3 F 98 18 140/93 H 94 11/20/19 09:33 11/20/19 09:33 11/20/19 09:33 11/20/19 09:33 11/20/19 09:33 Intake & Output 11/19/19 11/20/19 11/21/19 06:59 06:59 06:59 Intake Total 246 016 2780.404 Balance 478 319 3410.404 Weight 62 kg 62.2 kg General appearance: PRESENT: no acute distress, cooperative, thin. ABSENT: well-nourished Eye exam: ABSENT: scleral icterus Mouth exam: PRESENT: neck supple Neck exam: ABSENT: JVD Respiratory exam: PRESENT: symmetrical, unlabored. ABSENT: accessory muscle use, retraction, tachypnea GI/Abdominal exam: PRESENT: soft, tenderness. ABSENT: rebound, rigid Musculoskeletal exam: PRESENT: ambulatory - with assistance Neurological exam: PRESENT: alert, awake, oriented to person, oriented to place, oriented to time, other - However she seems a little confused at this time. Psychiatric exam: PRESENT: anxious. ABSENT: agitated Focused psych exam: ABSENT: pressured speech Skin exam: PRESENT: dry. ABSENT: jaundice Results Laboratory Results: 11/18/19 09:54 11/18/19 09:54 11/13/19 11/13/19 11/13/19 09:35 14:57 20:07 Troponin I 0.161 0.166 0.152 Impressions: Abdomen/Pelvis CT 11/13/19 09:31 IMPRESSION: 1. Mass in the right lung base recommend cc chest for further evaluation. Neoplasm is thought to be most likely. 2. Hepatomegaly with widespread metastatic disease throughout the liver. 3. Aortic adenopathy suspicious for metastatic disease. 4. Probable bony metastatic disease. Chest CT 11/14/19 00:00 IMPRESSION: 1. Irregular area of consolidation centered around the bronchi that extends from the hilum into the superior aspect of the right upper lobe and patchier peribronchial opacities scattered throughout the remainder of the right upper lobe and in the right middle, left lower, and left lower and left upper lobe. These opacities are nonspecific and differential to consider include multifocal pneumonia and lymphangitic carcinomatosis. 2. Probable pathologic compression fractures of the T10, T11 and L1 and L2 vertebral bodies. 3. Enlarged right hilar lymph node that measures 12 mm in short axis diameter. Head CT 11/14/19 00:00 IMPRESSION: No acute intracranial abnormality. EVIDENCE OF ACUTE STROKE: NO. Guidance Needle Placement CT 11/16/19 00:00 IMPRESSION: CT GUIDED TARGETED LIVER BIOPSY PERFORMED ABOVE. PATHOLOGY PENDING. NO IMMEDIATE COMPLICATIONS. Liver Biopsy CT 11/16/19 00:00 IMPRESSION: CT GUIDED TARGETED LIVER BIOPSY PERFORMED ABOVE. PATHOLOGY PENDING. NO IMMEDIATE COMPLICATIONS. Assessment and Plan - Diagnosis (1) Lung cancer, primary, with metastasis from lung to other site Qualifiers: Laterality: right Qualified Code(s): C34.91 - Malignant neoplasm of unspecified part of right bronchus or lung Is this a current diagnosis for this admission?: Yes Plan: Primary lung adenocarcinoma suspected based on liver biopsy. Noted metastasis to liver. Stage IV. Newly diagnosed. Started on chemotherapy today Keytruda, carboplatin and paclitaxel. Oncology following. Antiemetics on board. (2) Anemia Qualifiers: Iron deficiency anemia type: chronic blood loss Is this a current diagnosis for this admission?: Yes Plan: Combination of iron deficiency from chronic blood loss and anemia of chronic disease/malignancy. Received 2 units of PRBCs during this hospitalization. Zoila ly iron supplementation initiated. Continue to monitor CBC. (3) Acute respiratory failure with hypoxia Is this a current diagnosis for this admission?: Yes Plan: Patient developed hypoxia now requiring 2 L nasal cannula. Noted to have had SPO2 on room air in the 80s a couple of days ago. Possible etiology include lung malignancy. Will have patient perform incentive spirometer and wean oxygen if tolerated. Otherwise, plan for home oxygen upon discharge. (4) GI bleed Qualifiers: GI bleed type/associated pathology: melena Qualified Code(s): K92.1 - Ekren richard Is this a current diagnosis for this admission?: Yes Plan: EGD performed to evaluate melena. EGD revealed 2 clean-based ulcer without acti ve bleeding as well as gastritis. Biopsy negative for H. pylori and malignancy. Started on PPI. (5) Non-ST elevation myocardial infarction (NSTEMI) Is this a current diagnosis for this admission?: Yes Plan: Deemed to be type II NSTEMI/demand-perfusion mismatch secondary to anemia. No other evidence of ACS. (6) Pain, neoplasm-related Is this a current diagnosis for this admission?: Yes Plan: Patient was on morphine SR 30 mg every 8 hours and oxycodone as needed. However, patient continues to have worsening toxic-metabolic encephalopathy throughout today and as such we will decrease patient's morphine to 15 mg. Bowel regimen provided. (7) Protein calorie malnutrition Qualifiers: Protein-calorie malnutrition severity: moderate Qualified Code(s): E44.0 - Moderate protein-calorie malnutrition Is this a current diagnosis for this admission?: Yes Plan: Due to malignancy. We will continue to encourage nutrition. IV fluids. Antiemetics. - Time Time Spent with patient: Less than 15 minutes
[2019-11-20] MEDS ORDERED: DIAZEPAM INJ 10 MG/2 ML DISP.SYRIN ONE (19:57)
[2019-11-20] MEDS ORDERED: DIAZEPAM INJ 10 MG/2 ML DISP.SYRIN IV ONE (20:30)
[2019-11-20] MEDS: DILTIAZEM HCL 30 MG TABLET PO SCH (21:38)
[2019-11-20] MEDS ORDERED: MORPHINE SULFATE SR 30 MG TABLET PO SCH (22:00)
[2019-11-21] MEDS: DILTIAZEM HCL 30 MG TABLET PO SCH ×5 (01:15→23:52)
[2019-11-21] MEDS: MORPHINE SULFATE SR 15 MG TABLET PO SCH ×4 (01:17→21:18)
[2019-11-21] MEDS: OXYCODONE HCL IR 5 MG TABLET PO PRN ×3 (02:00→22:26)
[2019-11-21] MEDS: PANTOPRAZOLE SODIUM 40 MG TABLET.DR PO SCH (05:23)
[2019-11-21 07:05] LABS: HEMATOCRIT 37.5 % (36.0-47.0); MEAN CORPUSCULAR HEMOGLOBIN 26.8 pg (27.0-33.4); MEAN CORPUSCULAR HGB CONC 32.1 g/dL (32.0-36.0); MEAN CORPUSCULAR VOLUME 84 fl (80-97); PLATELET COUNT 246 10^3/uL (150-450); RED BLOOD COUNT 4.49 10^6/uL (3.72-5.28); RED CELL DISTRIBUTION WIDTH 17.7 % (11.5-14.0); WHITE BLOOD COUNT 15.7 10^3/uL (4.0-10.5)
[2019-11-21 07:29] LABS: ALBUMIN 3.1 g/dL (3.5-5.0); ALKALINE PHOSPHATASE 1034 U/L (38-126); ANION GAP 13 (5-19); ASPARTATE AMINO TRANSFERASE 360 U/L (14-36); BILIRUBIN,DIRECT 2.5 mg/dL (0.0-0.4); BILIRUBIN,TOTAL 3.4 mg/dL (0.2-1.3); BLOOD UREA NITROGEN 22 mg/dL (7-20); CALCIUM 8.6 mg/dL (8.4-10.2); CARBON DIOXIDE 25 mmol/L (22-30); CHLORIDE 97 mmol/L (98-107); GLUCOSE 125 mg/dL (75-110); POTASSIUM 4.8 mmol/L (3.6-5.0); TOTAL PROTEIN 6.1 g/dL (6.3-8.2)
[2019-11-21 07:38] LABS: ABSOLUTE LYMPHOCYTES# (MANUAL) 1.3 10^3/uL (0.5-4.7); ABSOLUTE MONOCYTES # (MANUAL) 1.4 10^3/uL (0.1-1.4); BAND NEUTROPHILS % (MANUAL) 1 % (3-5); BASOPHILS % (MANUAL) 1 % (0-2); EOSINOPHILS % (MANUAL) 0 % (0-6); LYMPHOCYTES % (MANUAL) 8 % (13-45); MONOCYTES % (MANUAL) 9 % (3-13); SEGMENTED NEUTROPHILS % (MAN) 81 % (42-78); TOTAL CELLS COUNTED 100
[2019-11-21 07:39] LABS: ANISOCYTOSIS 1+; PLATELET COMMENT ADEQUATE; PLATELET LARGE PRESENT; POLYCHROMASIA SLIGHT; TARGET CELLS SLIGHT
--- NOTE | 2019-11-21 07:50 | EKG REPORT ---
SEVERITY:- ABNORMAL ECG - SINUS TACHYCARDIA LEFT VENTRICULAR HYPERTROPHY : Confirmed by: Darlyn Ricketts MD 21-Nov-2019 07:49:48
--- NOTE | 2019-11-21 08:03 | PDOC PROGRESS REPORT ---
Subjective Progress Note for:: 11/21/19 Subjective:: Overnight pt had tachycardia, resp distress, inc 02 needs, had valium and cardizem w/ decrease in HR and pt calmed down. Apparently, had stressful conversations with her daughter throughout the day and before the episode at night. I have placed call to daughter several times yesterday but have not received call back. She has son who lives out of town, but have not yet been able to get that number from the pt. Pt received chemo yesterday, tolerated well Reason For Visit: TAXOL/CARBO/KEYTRUDA/PIV Physical Exam Vital Signs: Temp Pulse Resp BP Pulse Ox 97.8 F 109 H 24 H 154/96 H 95 11/21/19 00:07 11/21/19 07:00 11/21/19 00:07 11/21/19 00:07 11/21/19 05:59 Intake & Output 11/20/19 11/21/19 11/22/19 06:59 06:59 06:59 Intake Total 886 1777.404 Output Total 1000 Balance 886 777.404 Weight 62.2 kg 61.9 kg General appearance: PRESENT: no acute distress, well-developed, well-nourished Head exam: PRESENT: atraumatic, normocephalic Eye exam: PRESENT: conjunctiva pink, EOMI, PERRLA. ABSENT: scleral icterus Ear exam: PRESENT: normal external ear exam Mouth exam: PRESENT: moist, tongue midline Neck exam: ABSENT: carotid bruit, JVD, lymphadenopathy, thyromegaly Respiratory exam: PRESENT: clear to auscultation erasmo. ABSENT: rales, rhonchi, wheezes Cardiovascular exam: PRESENT: RRR. ABSENT: diastolic murmur, rubs, systolic murmur Pulses: PRESENT: normal dorsalis pedis pul Vascular exam: PRESENT: normal capillary refill GI/Abdominal exam: PRESENT: normal bowel sounds, soft. ABSENT: distended, guarding, mass, organolmegaly, rebound, tenderness Rectal exam: PRESENT: deferred Extremities exam: PRESENT: full ROM. ABSENT: calf tenderness, clubbing, pedal edema Neurological exam: PRESENT: alert, awake, oriented to person, oriented to place, oriented to time, oriented to situation, CN II-XII grossly intact. ABSENT: motor sensory deficit Psychiatric exam: PRESENT: appropriate affect, normal mood. ABSENT: homicidal ideation, suicidal ideation Skin exam: PRESENT: dry, intact, warm. ABSENT: cyanosis, rash Results Laboratory Results: 11/21/19 06:20 11/21/19 06:20 11/21/19 11/21/19 06:20 06:20 WBC 15.7 H RBC 4.49 Hgb 12.0 Hct 37.5 MCV 84 MCH 26.8 L MCHC 32.1 RDW 17.7 H Plt Count 246 Seg Neutrophils % Not Reportable Sodium 135.3 L Potassium 4.8 Chloride 97 L Carbon Dioxide 25 Anion Gap 13 BUN 22 H Creatinine 0.50 L Est GFR ( Amer) > 60 Glucose 125 H Calcium 8.6 Magnesium 1.9 Total Bilirubin 3.4 H AST 360 H Alkaline Phosphatase 1034 H Total Protein 6.1 L Albumin 3.1 L 11/13/19 11/13/19 11/13/19 09:35 14:57 20:07 Troponin I 0.161 0.166 0.152 Impressions: Abdomen/Pelvis CT 11/13/19 09:31 IMPRESSION: 1. Mass in the right lung base recommend cc chest for further evaluation. Neoplasm is thought to be most likely. 2. Hepatomegaly with widespread metastatic disease throughout the liver. 3. Aortic adenopathy suspicious for metastatic disease. 4. Probable bony metastatic disease. Chest CT 11/14/19 00:00 IMPRESSION: 1. Irregular area of consolidation centered around the bronchi that extends from the hilum into the superior aspect of the right upper lobe and patchier peribronchial opacities scattered throughout the remainder of the right upper lobe and in the right middle, left lower, and left lower and left upper lobe. These opacities are nonspecific and differential to consider include multifocal pneumonia and lymphangitic carcinomatosis. 2. Probable pathologic compression fractures of the T10, T11 and L1 and L2 vertebral bodies. 3. Enlarged right hilar lymph node that measures 12 mm in short axis diameter. Head CT 11/14/19 00:00 IMPRESSION: No acute intracranial abnormality. EVIDENCE OF ACUTE STROKE: NO. Guidance Needle Placement CT 11/16/19 00:00 IMPRESSION: CT GUIDED TARGETED LIVER BIOPSY PERFORMED ABOVE. PATHOLOGY PENDING. NO IMMEDIATE COMPLICATIONS. Liver Biopsy CT 11/16/19 00:00 IMPRESSION: CT GUIDED TARGETED LIVER BIOPSY PERFORMED ABOVE. PATHOLOGY PENDING. NO IMMEDIATE COMPLICATIONS. Assessment & Plan - Diagnosis (1) Primary cancer of right upper lobe of lung Is this a current diagnosis for this admission?: Yes Plan: Chemo given yesterday, next chemo outpt in 3 weeks, expect SE to come about by tuesday and weekend. (2) Pain, neoplasm-related Is this a current diagnosis for this admission?: Yes Plan: Pt meds reduced with worsening resp status, con't current meds for now. - Time Time Spent with patient: 15-24 minutes
[2019-11-21] MEDS: SENNOSIDES/DOCUSATE 8.6-50 MG 1 EACH TABLET PO SCH ×2 (09:08→09:11)
[2019-11-21] MEDS: FERROUS SULFATE 325 MG TABLET PO SCH (09:11)
[2019-11-21] MEDS ORDERED: LORAZEPAM 1 MG TABLET PO PRN (12:19)
--- NOTE | 2019-11-21 12:38 | PDOC PROGRESS REPORT ---
Subjective Progress Note for:: 11/21/19 Subjective:: Was informed that patient became very anxious overnight and into this morning as well. Had a discussion with patient and patient states that her anxiety is precipitated by conversations with her daughter regarding social situations at home including her daughter's lack of understanding about her situation. She states that her daughter keeps asking her to come home and states that she is not taking care of her at home. She is also worried about her new diagnosis of lung cancer. Stressed about all these things including pain. Complains of having significant back pain. Reason For Visit: TAXOL/CARBO/KEYTRUDA/PIV Physical Exam Vital Signs: Temp Pulse Resp BP Pulse Ox 98.1 F 109 H 20 128/81 H 96 11/21/19 07:22 11/21/19 07:22 11/21/19 07:22 11/21/19 07:22 11/21/19 07:22 Intake & Output 11/20/19 11/21/19 11/22/19 06:59 06:59 06:59 Intake Total 886 1777.404 Output Total 1000 Balance 886 777.404 Weight 62.2 kg 61.9 kg 61.9 kg General appearance: PRESENT: no acute distress, cooperative, thin. ABSENT: well-nourished Neck exam: ABSENT: JVD Respiratory exam: PRESENT: clear to auscultation erasmo, symmetrical, unlabored. ABSENT: tachypnea, wheezes Cardiovascular exam: PRESENT: RRR, +S1, +S2. ABSENT: tachycardia GI/Abdominal exam: PRESENT: organolmegaly, soft, tenderness. ABSENT: distended, firm, guarding, rebound, rigid Musculoskeletal exam: PRESENT: tenderness - Back tenderness along lower paraspinal region without much point tenderness Neurological exam: PRESENT: alert, awake, oriented to person, oriented to place, oriented to time, oriented to situation Results Laboratory Results: 11/21/19 06:20 11/21/19 06:20 11/21/19 11/21/19 06: 06:20 WBC 15.7 H RBC 4.49 Hgb 12.0 Hct 37.5 MCV 84 MCH 26.8 L MCHC 32.1 RDW 17.7 H Plt Count 246 Seg Neutrophils % Not Reportable Sodium 135.3 L Potassium 4.8 Chloride 97 L Carbon Dioxide 25 Anion Gap 13 BUN 22 H Creatinine 0.50 L Est GFR ( Amer) > 60 Glucose 125 H Calcium 8.6 Magnesium 1.9 Total Bilirubin 3.4 H AST 360 H Alkaline Phosphatase 1034 H Total Protein 6.1 L Albumin 3.1 L 11/13/19 11/13/19 11/13/19 09:35 14:57 20:07 Troponin I 0.161 0.166 0.152 Impressions: Abdomen/Pelvis CT 11/13/19 09:31 IMPRESSION: 1. Mass in the right lung base recommend cc chest for further evaluation. Neoplasm is thought to be most likely. 2. Hepatomegaly with widespread metastatic disease throughout the liver. 3. Aortic adenopathy suspicious for metastatic disease. 4. Probable bony metastatic disease. Chest CT 11/14/19 00:00 IMPRESSION: 1. Irregular area of consolidation centered around the bronchi that extends from the hilum into the superior aspect of the right upper lobe and patchier peribronchial opacities scattered throughout the remainder of the right upper lobe and in the right middle, left lower, and left lower and left upper lobe. These opacities are nonspecific and differential to consider include multifocal pneumonia and lymphangitic carcinomatosis. 2. Probable pathologic compression fractures of the T10, T11 and L1 and L2 vertebral bodies. 3. Enlarged right hilar lymph node that measures 12 mm in short axis diameter. Head CT 11/14/19 00:00 IMPRESSION: No acute intracranial abnormality. EVIDENCE OF ACUTE STROKE: NO. Guidance Needle Placement CT 11/16/19 00:00 IMPRESSION: CT GUIDED TARGETED LIVER BIOPSY PERFORMED ABOVE. PATHOLOGY PENDING. NO IMMEDIATE COMPLICATIONS. Liver Biopsy CT 11/16/19 00:00 IMPRESSION: CT GUIDED TARGETED LIVER BIOPSY PERFORMED ABOVE. PATHOLOGY PENDING. NO IMMEDIATE COMPLICATIONS. Assessment and Plan - Diagnosis (1) Lung cancer, primary, with metastasis from lung to other site Qualifiers: Laterality: right Qualified Code(s): C34.91 - Malignant neoplasm of unsp ecified part of right bronchus or lung Is this a current diagnosis for this admission?: Yes Plan: Primary lung adenocarcinoma suspected based on liver biopsy. Noted metastasis to liver. Stage IV. Newly diagnosed. Started on chemotherapy 11/20/2019 Keytruda, carboplatin and paclitaxel. Oncology following. Antiemetics on board. Neoplasm related pain - Morphine SR 15mg Q8h and prn oxycodone 10mg q4hp. Cautious due to encephalopathy yesterday. We will see if pain is tolerable tolerable or if adjustment needs to be made. Bowel regimen provided. (2) Anemia Qualifiers: Iron deficiency anemia type: chronic blood loss Is this a current diagnosis for this admission?: Yes Plan: Combination of iron deficiency from chronic blood loss and anemia of chronic disease/malignancy. Received 2 units of PRBCs during this hospitalization. Daily iron supplementation initiated. Continue to monitor CBC. (3) Acute respiratory failure with hypoxia Is this a current diagnosis for this admission?: Yes Plan: O2 requirement seems to have increased overnight. Seems patient may have been placed on facemask on 6 L when she had anxiety episode but currently on nasal cannula with 4 L. We will try to wean. If unable to wean will repeat chest imaging. (4) Anxiety Is this a current diagnosis for this admission?: Yes Plan: Propagating factors include social situation with her daughter, pain and new diagnosis of metastatic lung cancer. I will start patient on Celexa augmented with buspirone. Ativan as needed. (5) Compression fracture of vertebrae Qualifiers: Encounter type: initial encounter Is this a current diagnosis for this admission?: Yes Plan: Pathologic compression fracture of T10, T11, L1 and L2. Continue pain meds as above. Lidocaine patch added. K pad. (6) Elevated LFTs Is this a current diagnosis for this admission?: Yes Plan: Secondary to metastatic lung cancer to the liver. ALP also elevated in part due to bone/vertebra fracture. Monitor CMP. (7) Non-ST elevation myocardial infarction (NSTEMI) Is this a current diagnosis for this admission?: Yes Plan: Deemed to be type II NSTEMI/demand-perfusion mismatch secondary to anemia. No other evidence of ACS. (8) Protein calorie malnutrition Qualifiers: Protein-calorie malnutrition severity: moderate Qualified Code(s): E44.0 - Moderate protein-calorie malnutrition Is this a current diagnosis for this admission?: Yes Plan: Due to malignancy. We will continue to encourage nutrition. IV fluids. Antiemetics. (9) GI bleed Qualifiers: GI bleed type/associated pathology: melena Qualified Code(s): K92.1 - Melena Is this a current diagnosis for this admission?: Yes Plan: EGD performed to evaluate melena. EGD revealed 2 clean-based ulcer without active bleeding as well as gastritis. Biopsy negative for H. pylori and malignancy. Started on PPI. - Time Time Spent with patient: 15-24 minutes
[2019-11-21] MEDS: BUSPIRONE HCL 10 MG TABLET PO SCH ×2 (13:36→21:17)
[2019-11-21] MEDS: CITALOPRAM HYDROBROMIDE 20 MG TABLET PO SCH (13:37)
[2019-11-21] MEDS: LIDOCAINE 5% (700 MG) TRANSDERMAL ADH..PATCH TP SCH (17:14)
[2019-11-21 21:35] LABS: ARTERIAL BLOOD BASE EXCESS 4.1 mmol/L; ARTERIAL BLOOD H2CO3 1.34 mmol/L (1.05-1.35); ARTERIAL BLOOD O2 SATURATION 92.6 % (94-98); ARTERIAL BLOOD PCO2 44.5 mmHg (35-45); ARTERIAL BLOOD PH 7.43 (7.35-7.45); ARTERIAL BLOOD PO2 62.9 mmHg (80-100); ARTERIAL BLOOD TOTAL CO2 30.4 mmol/L (21-25)
[2019-11-21 21:38] LABS: ARTERIAL BLOOD FIO2 5L
--- NOTE | 2019-11-21 21:47 | RADIOLOGY REPORT (SQ) ---
EXAM DESCRIPTION: CLINICAL HISTORY: 64 years Female sob COMPARISON: CT chest 11/16/2019. TECHNIQUE: Upright portable chest x-ray FINDINGS: Mild left cardiomegaly. Mildly ectatic aorta. No suspicious mediastinal adenopathy. Recently visualized right upper lobe infiltrate possibly improved. There is been increase in bilateral paramediastinal central infiltrates. Question new small pleural effusions IMPRESSION: Compared to CT chest from a week ago, increased central infiltrates and possible effusions. Rule out superimposed edema. Previous right upper lung infiltrate appears improved.
[2019-11-21 22:06] LABS: CREATINE KINASE MB 12.8 ng/mL (<4.55)
[2019-11-21 22:11] LABS: TROPONIN I 4.56 ng/mL
[2019-11-21] MEDS ORDERED: FUROSEMIDE INJ/PF 40 MG/4 ML SDV IV ONE (22:15)
[2019-11-21] MEDS: ASPIRIN 325 MG TABLET PO SCH (22:52)
[2019-11-21] MEDS ORDERED: ENOXAPARIN SODIUM INJ 60 MG/0.6 ML DISP.SYRIN SUBCUT ONE ×2 (23:22→23:59)
[2019-11-21] MEDS ORDERED: NITROGLYCERIN 0.4 MG/TAB 25 TAB/BOTTLE SL ONE (23:30)
[2019-11-22 03:45] LABS: ABSOLUTE LYMPHOCYTES (AUTO) 0.5 10^3/uL (0.5-4.7); ABSOLUTE MONOCYTES (AUTO) 0.1 10^3/uL (0.1-1.4); ABSOLUTE NEUT (AUTO) 8.2 10^3/uL (1.7-8.2); BASOPHILS % (AUTO) 0.4 % (0-2); EOSINOPHILS % (AUTO) 0.2 % (0-6); HEMATOCRIT 38.4 % (36.0-47.0); HEMOGLOBIN 12.3 g/dL (12.0-15.5); LYMPHOCYTES % (AUTO) 5.4 % (13-45); MEAN CORPUSCULAR HEMOGLOBIN 26.8 pg (27.0-33.4); MEAN CORPUSCULAR VOLUME 84 fl (80-97); PLATELET COUNT 171 10^3/uL (150-450); RED BLOOD COUNT 4.58 10^6/uL (3.72-5.28); RED CELL DISTRIBUTION WIDTH 18.4 % (11.5-14.0); TOTAL CELLS COUNTED % (AUTO) 100 %; WHITE BLOOD COUNT 8.8 10^3/uL (4.0-10.5)
[2019-11-22 04:05] LABS: ALBUMIN 2.7 g/dL (3.5-5.0); ALKALINE PHOSPHATASE 749 U/L (38-126); ANION GAP 10 (5-19); ASPARTATE AMINO TRANSFERASE 306 U/L (14-36); BILIRUBIN,DIRECT 1.2 mg/dL (0.0-0.4); BILIRUBIN,TOTAL 1.8 mg/dL (0.2-1.3); BLOOD UREA NITROGEN 36 mg/dL (7-20); CALCIUM 8.2 mg/dL (8.4-10.2); CARBON DIOXIDE 27 mmol/L (22-30); CHLORIDE 100 mmol/L (98-107); GLUCOSE 120 mg/dL (75-110); POTASSIUM 4.9 mmol/L (3.6-5.0); TOTAL PROTEIN 5.4 g/dL (6.3-8.2)
[2019-11-22 04:29] LABS: CREATINE KINASE MB 8.54 ng/mL (<4.55)
[2019-11-22] MEDS ORDERED: NITROGLYCERIN 0.4 MG/TAB 25 TAB/BOTTLE SL PRN (04:33)
[2019-11-22 04:53] LABS: TROPONIN I 4.67 ng/mL
[2019-11-22] MEDS: MORPHINE SULFATE SR 15 MG TABLET PO SCH ×3 (05:29→20:59)
[2019-11-22] MEDS: DILTIAZEM HCL 30 MG TABLET PO SCH (05:34)
[2019-11-22] MEDS: PANTOPRAZOLE SODIUM 40 MG TABLET.DR PO SCH (05:35)
--- NOTE | 2019-11-22 07:54 | PDOC PROGRESS REPORT ---
Subjective Progress Note for:: 11/22/19 Subjective:: Doing very poorly this am, confused, saying she "wants to ". Troponin increase and Twave changes noted this am. I had a long conversation w/ Aleks Alexis, her son who lives in [place]. I told him of her dire status and encouraged him to make arrangements to come to see her. Her pain level overall is increased. He has not taken much po over last 24 hours, not getting up. Now on hi flow 02 at 10L Reason For Visit: TAXOL/CARBO/KEYTRUDA/PIV Physical Exam Vital Signs: Temp Pulse Resp BP Pulse Ox 97.8 F 109 H 20 85/55 L 93 11/22/19 03:04 11/22/19 06:57 11/22/19 04:20 11/22/19 03:04 11/22/19 04:20 Intake & Output 11/21/19 11/22/19 11/23/19 06:59 06:59 06:59 Intake Total 1777.404 Output Total 1000 100 Balance 777.404 -100 Weight 61.9 kg 61.7 kg General appearance: PRESENT: no acute distress, well-developed, well-nourished Head exam: PRESENT: atraumatic, normocephalic Eye exam: PRESENT: conjunctiva pink, EOMI, PERRLA. ABSENT: scleral icterus Ear exam: PRESENT: normal external ear exam Mouth exam: PRESENT: moist, tongue midline Neck exam: ABSENT: carotid bruit, JVD, lymphadenopathy, thyromegaly Respiratory exam: PRESENT: clear to auscultation erasmo. ABSENT: rales, rhonchi, wheezes Cardiovascular exam: PRESENT: RRR. ABSENT: diastolic murmur, rubs, systolic murmur Pulses: PRESENT: normal dorsalis pedis pul Vascular exam: PRESENT: normal capillary refill GI/Abdominal exam: PRESENT: normal bowel sounds, soft. ABSENT: distended, guarding, mass, organolmegaly, rebound, tenderness Rectal exam: PRESENT: deferred Extremities exam: PRESENT: full ROM. ABSENT: calf tenderness, clubbing, pedal edema Neurological exam: PRESENT: alert, awake, oriented to person, oriented to place, oriented to time, oriented to situation, CN II-XII grossly intact. ABSENT: motor sensory deficit Psychiatric exam: PRESENT: appropriate affect, normal mood. ABSENT: homicidal ideation, suicidal ideation Skin exam: PRESENT: dry, intact, warm. ABSENT: cyanosis, rash Results Laboratory Results: 11/22/19 03:35 11/22/19 03:35 11/21/19 11/22/19 11/22/19 20:57 03:35 03:35 WBC 8.8 RBC 4.58 Hgb 12.3 Hct 38.4 MCV 84 MCH 26.8 L MCHC 32.0 RDW 18.4 H Plt Count 171 Seg Neutrophils % 93.0 H Carbonic Acid 1.34 HCO3/H2CO3 Ratio 21:1 ABG pH 7.43 ABG pCO2 44.5 ABG pO2 62.9 L ABG HCO3 29.0 H ABG O2 Saturation 92.6 L ABG Base Excess 4.1 FiO2 5L Sodium 136.6 L Potassium 4.9 Chloride 100 Carbon Dioxide 27 Anion Gap 10 BUN 36 H Creatinine 0.90 Est GFR ( Amer) > 60 Glucose 120 H Calcium 8.2 L Magnesium 2.0 Total Bilirubin 1.8 H AST 306 H Alkaline Phosphatase 749 H Total Protein 5.4 L Albumin 2.7 L 11/13/19 11/13/19 11/13/19 09:35 14:57 20:07 Creatine Kinase CK-MB (CK-2) Troponin I 0.161 0.166 0.152 NT-Pro-B Natriuret Pep 11/21/19 11/21/19 11/22/19 21:02 21:02 03:35 Creatine Kinase 77 62 CK-MB (CK-2) 12.80 H Troponin I 4.560 NT-Pro-B Natriuret Pep 82306 H 11/22/19 03:35 Creatine Kinase CK-MB (CK-2) 8.54 H Troponin I 4.670 NT-Pro-B Natriuret Pep Impressions: Abdomen/Pelvis CT 11/13/19 09:31 IMPRESSION: 1. Mass in the right lung base recommend cc chest for further evaluation. Neoplasm is thought to be most likely. 2. Hepatomegaly with widespread metastatic disease throughout the liver. 3. Aortic adenopathy suspicious for metastatic disease. 4. Probable bony metastatic disease. Chest CT 11/14/19 00:00 IMPRESSION: 1. Irregular area of consolidation centered around the bronchi that extends from the hilum into the superior aspect of the right upper lobe and patchier peribronchial opacities scattered throughout the remainder of the right upper lobe and in the right middle, left lower, and left lower and left upper lobe. These opacities are nonspecific and differential to consider include multifocal pneumonia and lymphangitic carcinomatosis. 2. Probable pathologic compression fractures of the T10, T11 and L1 and L2 vertebral bodies. 3. Enlarged right hilar lymph node that measures 12 mm in short axis diameter. Head CT 11/14/19 00:00 IMPRESSION: No acute intracranial abnormality. EVIDENCE OF ACUTE STROKE: NO. Guidance Needle Placement CT 11/16/19 00:00 IMPRESSION: CT GUIDED TARGETED LIVER BIOPSY PERFORMED ABOVE. PATHOLOGY PENDING. NO IMMEDIATE COMPLICATIONS. Liver Biopsy CT 11/16/19 00:00 IMPRESSION: CT GUIDED TARGETED LIVER BIOPSY PERFORMED ABOVE. PATHOLOGY PENDING. NO IMMEDIATE COMPLICATIONS. Chest X-Ray 11/21/19 00:00 IMPRESSION: Compared to CT chest from a week ago, increased central infiltrates and possible effusions. Rule out superimposed edema. Previous right upper lung infiltrate appears improved. Assessment & Plan - Diagnosis (1) Primary cancer of right upper lobe of lung Is this a current diagnosis for this admission?: Yes Plan: Worsening overall status. Agree w/ DNR. Discussed with son. Have not been able to contact daughter yet but son noted he will relay information to her. Will follow. s/p cycle #1 of chemo. (2) Pain, neoplasm-related Is this a current diagnosis for this admission?: Yes Plan: Cont w/ current pain meds. - Time Time Spent with patient: 15-24 minutes
[2019-11-22] MEDS: ASPIRIN 325 MG TABLET PO SCH (09:16)
[2019-11-22] MEDS: BUSPIRONE HCL 10 MG TABLET PO SCH ×2 (09:16→20:59)
[2019-11-22] MEDS: SENNOSIDES/DOCUSATE 8.6-50 MG 1 EACH TABLET PO SCH (09:16)
[2019-11-22] MEDS: OXYCODONE HCL IR 5 MG TABLET PO PRN (09:17)
[2019-11-22] MEDS: CITALOPRAM HYDROBROMIDE 20 MG TABLET PO SCH (09:17)
[2019-11-22] MEDS: FERROUS SULFATE 325 MG TABLET PO SCH (09:17)
[2019-11-22] MEDS: LIDOCAINE 5% (700 MG) TRANSDERMAL ADH..PATCH TP SCH (09:20)
[2019-11-22 09:37] LABS: CREATINE KINASE MB 5.61 ng/mL (<4.55); TROPONIN I 4.09 ng/mL
--- NOTE | 2019-11-22 10:45 | PDOC CONSULTATION ---
Consultation Consult Date: 11/22/19 Attending physician:: QUEENIE JOSUE Provider Consulted: DEBBIE GOMEZ Consult reason:: SOB History of Present Illness Admission Date/PCP: 11/13/19 11:54 History of Present Illness: BORIS MORALES is a 64 year old female without known cardiac history, no known medical history, smoker of 1 pack/day since age 16 years and no family history of premature coronary artery disease who is re-consulted to our service for evaluation of shortness of breath. For further details of the original consult please see my prior notes. In summary, She had a Type II [place] and had been treated medically given her widespread metastatic cancer. Her original echocardiogram did not show regional wall motion abnormalities and her LVSF was normal. Unfort unately the patient continued to deteriorate clinically from her cancer and was begun on chemotherapy. Per Dr. Josue report this morning, she had an episode of shortness of breath last night reason why an EKG and cardiac enzymes were obtained. Her ekg demonstrated new deep ST wave depressions and her troponin is elevated. She apparently was begun on therapeutic anticoagulation. She is currently a DNR. Physical exam on 11/22/2019: GENERAL: Very ill, very pale, on oxygen. HEENT: Normocephalic, atraumatic. Pupils equal. Sclerae anicteric. Oropharynx moist. NECK: No JVD. No carotid bruits. LUNGS: Clear to auscultation bilaterally. Normal respiratory effort without the use of accessory muscles or intercostal retractions. CARDIOVASCULAR: Mildly tachycardic. Regular rate and rhythm, normal S1 and S2 without murmurs, rubs, or gallops. PMI not displaced. ABDOMEN: Not examined due to pain. EXTREMITIES: No edema, no cyanosis, no clubbing. Very weal distal pulses. SKIN: No lesions or rashes. MUSCULOSKELETAL: No chest tenderness to palpation. NEUROLOGIC: Nonfocal. No gross sensory or motor deficits bilateral upper or lower extremities. Past Medical History Cardiac Medical History: Reports: None Psychiatric Medical History: Denies: Depression Past Surgical History Past Surgical History: Reports: None Social History Smoking Status: Current Every Day Smoker Cigarettes Packs Per Day: 1 Electronic Cigarette use?: No Number of Years Smokin Last Time Smoked: t Frequency of Alcohol Use: None Hx Recreational Drug Use: No Drugs: None Hx Prescription Drug Abuse: No - Advance Directive Resuscitation Status: Do Not Resuscitate Family History Family History: Malignancy - Mother had ovarian cancer and father from non- Hodgkin's lymphoma Parental Family History Reviewed: Yes Children Family History Reviewed: Yes Sibling(s) Family History Reviewed.: Yes Medication/Allergy Home Medications: Aspirin/Caffeine [Bc Powder Packet] 1 pkt PO TIDP PRN 11/13/19 Allergies/Adverse Reactions: No Known Allergies Allergy (Verified 11/13/19 15:08) Physical Exam Vital Signs: Temp Pulse Resp BP Pulse Ox 98.5 F 110 H 15 85/56 L 88 L 11/22/19 07:40 11/22/19 07:40 11/22/19 07:40 11/22/19 07:40 11/22/19 07:40 Intake & Output 11/21/19 11/22/19 11/23/19 06:59 06:59 06:59 Intake Total 1777.404 Output Total 1000 100 Balance 777.404 -100 Weight 61.9 kg 61.7 kg Results Laboratory Results: 11/22/19 03:35 11/22/19 03:35 11/21/19 11/22/19 11/22/19 20:57 03:35 03:35 WBC 8.8 RBC 4.58 Hgb 12.3 Hct 38.4 MCV 84 MCH 26.8 L MCHC 32.0 RDW 18.4 H Plt Count 171 Seg Neutrophils % 93.0 H Carbonic Acid 1.34 HCO3/H2CO3 Ratio 21:1 ABG pH 7.43 ABG pCO2 44.5 ABG pO2 62.9 L ABG HCO3 29.0 H ABG O2 Saturation 92.6 L ABG Base Excess 4.1 FiO2 5L Sodium 136.6 L Potassium 4.9 Chloride 100 Carbon Dioxide 27 Anion Gap 10 BUN 36 H Creatinine 0.90 Est GFR ( Amer) > 60 Glucose 120 H Calcium 8.2 L Magnesium 2.0 Total Bilirubin 1.8 H AST 306 H Alkaline Phosphatase 749 H Total Protein 5.4 L Albumin 2.7 L 11/13/19 11/13/19 11/13/19 09:35 14:57 20:07 Creatine Kinase CK-MB (CK-2) Troponin I 0.161 0.166 0.152 NT-Pro-B Natriuret Pep 11/21/19 11/21/19 11/22/19 21:02 21:02 03:35 Creatine Kinase 77 62 CK-MB (CK-2) 12.80 H Troponin I 4.560 NT-Pro-B Natriuret Pep 11615 H 11/22/19 11/22/19 11/22/19 03:35 08:54 08:54 Creatine Kinase 56 CK-MB (CK-2) 8.54 H 5.61 H Troponin I 4.670 4.090 NT-Pro-B Natriuret Pep Impressions: Abdomen/Pelvis CT 11/13/19 09:31 IMPRESSION: 1. Mass in the right lung base recommend cc chest for further evaluation. Neoplasm is thought to be most likely. 2. Hepatomegaly with widespread metastatic disease throughout the liver. 3. Aortic adenopathy suspicious for metastatic disease. 4. Probable bony metastatic disease. Chest CT 11/14/19 00:00 IMPRESSION: 1. Irregular area of consolidation centered around the bronchi that extends from the hilum into the superior aspect of the right upper lobe and patchier peribronchial opacities scattered throughout the remainder of the right upper lobe and in the right middle, left lower, and left lower and left upper lobe. These opacities are nonspecific and differential to consider include multifocal pneumonia and lymphangitic carcinomatosis. 2. Probable pathologic compression fractures of the T10, T11 and L1 and L2 vertebral bodies. 3. Enlarged right hilar lymph node that measures 12 mm in short axis diameter. Head CT 11/14/19 00:00 IMPRESSION: No acute intracranial abnormality. EVIDENCE OF ACUTE STROKE: NO. Guidance Needle Placement CT 11/16/19 00:00 IMPRESSION: CT GUIDED TARGETED LIVER BIOPSY PERFORMED ABOVE. PATHOLOGY PENDING. NO IMMEDIATE COMPLICATIONS. Liver Biopsy CT 11/16/19 00:00 IMPRESSION: CT GUIDED TARGETED LIVER BIOPSY PERFORMED ABOVE. PATHOLOGY PENDING. NO IMMEDIATE COMPLICATIONS. Chest X-Ray 11/21/19 00:00 IMPRESSION: Compared to CT chest from a week ago, increased central infiltrates and possible effusions. Rule out superimposed edema. Previous right upper lung infiltrate appears improved. 11/22/19 03:35 11/22/19 03:35 MCV 84 fl (80-97) 11/22/19 03:35 MCH 26.8 pg (27.0-33.4) L 11/22/19 03:35 MCHC 32.0 g/dL (32.0-36.0) 11/22/19 03:35 RDW 18.4 % (11.5-14.0) H 11/22/19 03:35 Seg Neutrophils % 93.0 % (42-78) H 11/22/19 03:35 Retic Count (auto) 4.10 % (0.66-2.85) H 11/14/19 10:52 Carbonic Acid 1.34 mmol/L (1.05-1.35) 11/21/19 20:57 HCO3/H2CO3 Ratio 21:1 11/21/19 20:57 ABG pH 7.43 (7.35-7.45) 11/21/19 20:57 ABG pCO2 44.5 mmHg (35-45) 11/21/19 20:57 ABG pO2 62.9 mmHg (80-100) L 11/21/19 20:57 ABG HCO3 29.0 mmol/L (20-24) H 11/21/19 20:57 ABG O2 Saturation 92.6 % (94-98) L 11/21/19 20:57 ABG Base Excess 4.1 mmol/L 11/21/19 20:57 FiO2 5L 11/21/19 20:57 Chloride 100 mmol/L (98-107) 11/22/19 03:35 Carbon Dioxide 27 mmol/L (22-30) 11/22/19 03:35 Anion Gap 10 (5-19) 11/22/19 03:35 Est GFR ( Amer) > 60 (>60) 11/22/19 03:35 Glucose 120 mg/dL (75-110) H 11/22/19 03:35 Calcium 8.2 mg/dL (8.4-10.2) L 11/22/19 03:35 Magnesium 2.0 mg/dL (1.6-2.3) 11/22/19 03:35 Iron 18.3 ug/dL (37-170) L 11/14/19 10:52 TIBC 413 ug/dL (250-450) 11/14/19 10:52 % Saturation 4 % 11/14/19 10:52 Transferrin 260.80 mg/dL (206.00-381.00) 11/14/19 10:52 Ferritin 291.00 ng/mL (11.1-264.0) H 11/14/19 10:52 Total Bilirubin 1.8 mg/dL (0.2-1.3) H 11/22/19 03:35 AST 306 U/L (14-36) H 11/22/19 03:35 Alkaline Phosphatase 749 U/L (38-126) H 11/22/19 03:35 Total Protein 5.4 g/dL (6.3-8.2) L 11/22/19 03:35 Albumin 2.7 g/dL (3.5-5.0) L 11/22/19 03:35 Vitamin B12 > 1000.0 pg/mL (239-931) H 11/14/19 10:52 Folate 13.50 ng/mL (>2.76) 11/14/19 10:52 Blood Type O POSITIVE 11/13/19 09:35 Antibody Screen NEGATIVE 11/13/19 09:35 11/13/19 11/13/19 11/13/19 09:35 14:57 20:07 Creatine Kinase CK-MB (CK-2) Troponin I 0.161 0.166 0.152 NT-Pro-B Natriuret Pep 11/21/19 11/21/19 11/22/19 21:02 21:02 03:35 Creatine Kinase 77 62 CK-MB (CK-2) 12.80 H Troponin I 4.560 NT-Pro-B Natriuret Pep 81907 H 11/22/19 11/22/19 11/22/19 03:35 08:54 08:54 Creatine Kinase 56 CK-MB (CK-2) 8.54 H 5.61 H Troponin I 4.670 4.090 NT-Pro-B Natriuret Pep Current Medication List Generic Name Dose Route Start Last Admin Trade Name Freq PRN Reason Stop Dose Admin Acetaminophen 650 mg 11/13/19 13:51 Tylenol 325 Mg Tablet PO 12/13/19 13:50 Q4HP PRN FOR PAIN SCALE 1-2 Albuterol/Ipratropium 3 ml 11/13/19 13:51 Duoneb 3 Ml Ampul NEB 12/13/19 13:50 RTQ6HP PRN SHORTNESS OF BREATH Aspirin 325 mg 11/21/19 22:15 11/22/19 09:16 Aspirin 325 Mg Tablet PO 12/21/19 22:14 325 mg DAILY MARYA Administration Buspirone HCl 7.5 mg 05/20/20 12:45 11/22/19 09:16 Buspar 10 Mg Tablet PO 12/21/19 12:44 7.5 mg Q12 MARYA Administration Citalopram Hydrobromide 10 mg 11/21/19 13:00 11/22/19 09:17 Celexa 20 Mg Tablet PO 12/21/19 12:59 10 mg DAILY MARYA Administration Enoxaparin Sodium 60 mg 11/22/19 23:15 Lovenox Inj 60 Mg/0.6 Ml Disp.Syrin SUBCUT 12/22/19 23:14 Q12 [facility] Ferrous Sulfate 325 mg 11/21/19 10:00 11/22/19 09:17 Feosol 325 Mg Tablet PO 12/21/19 09:59 325 mg DAILY MARYA Administration Lactulose 20 gm 11/18/19 15:26 Cephulac Syrup 20 Gm/30 Ml Udcup PO 12/19/19 09:59 DAILY PRN UNRESOLVED CONSTIPATION Lidocaine 1 patch 11/21/19 13:00 11/22/19 09:20 Lidoderm 5% (700 Mg) Transdermal Patch TP 12/21/19 12:59 1 patch DAILY MARYA Administration Lorazepam 1 mg 11/21/19 12:19 Ativan 1 Mg Tablet PO 11/28/19 12:18 Q8HP PRN ANXIETY/AGITATION Morphine Sulfate 15 mg 11/20/19 22:00 11/22/19 05:29 Ms-Contin Sr 15 Mg Tablet PO 11/27/19 21:59 15 mg Q8 MARYA Administration Nitroglycerin 1 tab 11/22/19 04:33 Nitrostat 0.4 Mg (1/150 Gr) Tabs 25/Bottle SL 12/22/19 04:32 Q5MP PRN FOR CHEST PAIN Ondansetron HCl 4 mg 11/13/19 13:51 11/22/19 03:28 Zofran Odt 4 Mg Tablet PO 12/13/19 13:50 4 mg Q6HP PRN Administration FOR NAUSEA/VOMITING Oxycodone HCl 10 mg 11/15/19 13:46 11/22/19 09:17 Oxy-Ir 5 Mg Tablet PO 11/29/19 13:45 10 mg Q4HP PRN Administration FOR PAIN SCALE 1-3 Pantoprazole Sodium 40 mg 11/19/19 06:00 11/22/19 05:[address] Tablet PO 12/19/19 05:59 40 mg Q6AM MARYA Administration Polyethylene Glycol 17 gm 11/16/19 07:49 11/16/19 18:08 Miralax Powder 17 Gm/Packet PO 12/16/19 07:48 17 gm DAILYP PRN Administration FOR CONSTIPATION Senna/Docusate Sodium 2 each 11/16/19 10:00 11/22/19 09:16 Senna Plus Tablet PO 12/16/19 09:59 2 each DAILY MARYA Administration Discontinued Medications Generic Name Dose Route Start Last Admin Trade Name Freq PRN Reason Stop Dose Admin Acetaminophen 650 mg 11/14/19 05:00 11/14/19 19:41 Tylenol 325 Mg Tablet PO 11/14/19 23:59 650 mg .BEFORE TRANSFUSION PRN Administration FOR PAIN Bisacodyl 10 mg 11/18/19 13:45 11/18/19 13:43 Dulcolax 10 Mg Supp.Rect NM 11/18/19 13:46 10 mg NOW ONE Administration Diazepam Confirm 11/20/19 19:57 11/20/19 21:18 Valium Inj 10 Mg/2 Ml Disp.Syrin Administered 11/20/19 19:58 Not Given Dose 10 mg .ROUTE .STK-MED ONE Diazepam 5 mg 11/20/19 20:30 11/20/19 20:30 Valium Inj 10 Mg/2 Ml Disp.Syrin IV 11/20/19 20:31 5 mg NOW ONE Administration Diltiazem HCl 30 mg 11/20/19 21:30 11/22/19 05:34 Cardizem 30 Mg Tablet PO 12/20/19 21:29 Not Given Q6 MARYA Diphenhydramine HCl 25 mg 11/14/19 05:00 11/14/19 19:41 Benadryl 25 Mg Capsule PO 11/14/19 23:59 25 mg .BEFORE TRANSFUSION PRN Administration FOR REACTION Docusate Sodium 100 mg 11/14/19 10:00 11/15/19 09:42 Colace 100 Mg Capsule PO 12/14/19 09:59 Not Given DAILY MARYA Enoxaparin Sodium Confirm 11/21/19 23:22 11/21/19 23:50 Lovenox Inj 60 Mg/0.6 Ml Disp.Syrin Administered 11/21/19 23:23 Not Given Dose 60 mg SUBCUT .STK-MED ONE Enoxaparin Sodium 60 mg 11/21/19 23:59 11/21/19 23:52 Lovenox Inj 60 Mg/0.6 Ml Disp.Syrin SUBCUT 11/22/19 00:00 60 mg NOW ONE Administration Fentanyl Citrate Confirm 11/16/19 09:39 11/16/19 11:44 Sublimaze Inj/Pf 100 Mcg/2 Ml Ampule Administered 11/16/19 09:40 Not Given Dose 100 mcg .ROUTE .STK-MED ONE Furosemide 40 mg 11/21/19 22:15 11/21/19 22:27 Lasix Inj/Pf 40 Mg/4 Ml Sdv IV 11/21/19 22:16 40 mg NOW ONE Administration Hydromorphone HCl 1 mg 11/14/19 12:32 11/15/19 07:46 Dilaudid Inj/Pf 2 Mg/Ml Ampule IV 1 mg Q4HP PRN Administration FOR PAIN SCALE 3-5 Hydromorphone HCl 1 mg 11/15/19 13:45 11/20/19 04:04 Dilaudid Inj/Pf 2 Mg/Ml Ampule IV 1 mg Q4HP PRN Administration FOR PAIN SCALE 4-5 Sodium Chloride 500 mls @ 0 mls/hr 11/13/19 09:32 11/13/19 11:01 Nacl 0.9% 500 Ml Iv Soln IV 11/13/19 09:33 Infused NOW ONE Infusion Wide Open Pembrolizumab 200 mg/ Sodium 58 mls @ 116 mls/hr 11/20/19 09:53 11/20/19 12:45 Chloride IV 11/20/19 23:59 Infused .CHEMO 11/19 PRN Infusion THIS MED IS NOT "PRN" Sodium Chloride 250 mls @ 0 mls/hr 11/20/19 09:54 11/20/19 16:31 Nacl 0.9% 250 Ml Iv Soln IV 11/20/19 23:59 Infused CONTINUOUS PRN Infusion THIS MED IS NOT "PRN" KVO Dexamethasone Sodium Phosphate 52 mls @ 156 mls/hr 11/20/19 09:56 11/20/19 11:08 20 mg/ Sodium Chloride IV 11/20/19 23:58 Infused .PREMED 11/19 PRN Infusion THIS MED IS NOT "PRN" Diphenhydramine HCl 50 mg/ 51 mls @ 153 mls/hr 11/20/19 09:57 11/20/19 11:56 Sodium Chloride IV 11/20/19 23:59 Infused .PREMED 11/19 PRN Infusion THIS MED IS NOT "PRN" Famotidine 20 mg/ Sodium 52 mls @ 156 mls/hr 11/20/19 09:57 11/20/19 11:28 Chloride IV 11/20/19 23:59 Infused .PREMED 11/19 PRN Infusion THIS MED IS NOT "PRN" Fosaprepitant 150 mg/ Sodium 150 mls @ 450 mls/hr 11/20/19 09:58 11/20/19 12:14 Chloride IV 11/20/19 23:59 Infused .PREMED 11/19 PRN Infusion THIS MED IS NOT "PRN" Paclitaxel 312 mg/ Sodium 552.104 mls @ 184.035 mls/hr 11/20/19 10:00 11/20/19 15:40 Chloride IV 11/20/19 23:59 Infused .CHEMO 11/19 PRN Infusion THIS MED IS NOT "PRN" Carboplatin 623 mg/ Sodium 312.3 mls @ 624.6 mls/hr 11/20/19 10:02 11/20/19 16:12 Chloride IV 11/20/19 23:59 Infused .CHEMO 11/19 PRN Infusion THIS MED IS NOT "PRN" Midazolam HCl Confirm 11/16/19 09:39 11/16/19 11:44 Versed 2 Mg/2 Ml Inj Administered 11/16/19 09:40 Not Given Dose 2 mg .ROUTE .STK-MED ONE Morphine Sulfate 2 mg 11/13/19 09:31 11/13/19 10:23 Morphine 10 Mg/Ml Inj IV 11/13/19 09:32 2 mg NOW ONE Administration Morphine Sulfate 2 mg 11/13/19 12:01 11/13/19 12:24 Morphine 10 Mg/Ml Inj IV 11/13/19 12:02 2 mg NOW ONE Administration Morphine Sulfate 3 mg 11/13/19 15:29 11/14/19 10:09 Morphine 10 Mg/Ml Inj IV 11/20/19 15:28 3 mg Q4HP PRN Administration FOR PAIN SCALE 3-4 Morphine Sulfate 15 mg 11/15/19 22:00 11/15/19 22:50 Ms-Contin Sr 15 Mg Tablet PO 11/22/19 21:59 15 mg Q12 MARYA Administration Morphine Sulfate 30 mg 11/16/19 10:00 11/17/19 09:39 Ms-Contin Sr 15 Mg Tablet PO 11/23/19 09:59 30 mg Q12 MARYA Administration Morphine Sulfate 30 mg 11/17/19 10:30 11/17/19 09:55 Ms-Contin Sr 30 Mg Tablet PO 11/24/19 10:29 Not Given Q8A MARYA Morphine Sulfate 30 mg 11/17/19 14:00 11/20/19 16:59 Ms-Contin Sr 30 Mg Tablet PO 11/24/19 10:29 Not Given Q8 MARYA Nitroglycerin 1 tab 11/21/19 23:30 11/21/19 23:24 Nitrostat 0.4 Mg (1/150 Gr) Tabs 25/Bottle SL 11/21/19 23:31 1 tab STAT ONE Administration Ondansetron HCl 4 mg 11/13/19 09:31 11/13/19 10:28 Zofran Inj/Pf 4 Mg/2 Ml Sdv IV 11/13/19 09:32 4 mg NOW ONE Administration Oxycodone/Acetaminophen 1 tab 11/13/19 13:51 Percocet 5-325 Mg Tablet PO 11/20/19 13:50 Q6HP PRN FOR PAIN SCALE 3-4 Oxycodone/Acetaminophen 1 tab 11/13/19 15:30 11/15/19 11:50 Percocet 5-325 Mg Tablet PO 11/20/19 13:50 1 tab Q6HP PRN Administration FOR PAIN SCALE 2-3 Pantoprazole Sodium 80 mg 11/13/19 09:30 11/13/19 10:28 Protonix Iv Inj 40 Mg Vial IV 11/13/19 09:31 80 mg .BOLUS (IVBAG) ONE Administration Pantoprazole Sodium 40 mg 11/13/19 22:00 11/18/19 09:07 Protonix Iv Inj 40 Mg Vial IV 11/20/19 21:59 40 mg Q12 MARYA Administration Propofol Confirm 11/15/19 07:07 Diprivan Inj 200 Mg/20 Ml Vial Administered 11/15/19 07:08 Dose 200 mg IV .STK-MED ONE Zolpidem Tartrate 5 mg 11/13/19 13:51 11/16/19 00:01 Ambien 5 Mg Tablet PO 11/20/19 13:50 5 mg HSP PRN Administration SLEEP OR INSOMNIA Assessment & Plan - Diagnosis (1) Elevated troponin I level Is this a current diagnosis for this admission?: Yes Plan: Unfortunately the patient appeared to have suffered a thrombotic cardiovascular event last night given her prothrombotic state from her widespread cancer. Her ekg does show new changes consistent with ischemia and her troponin level is definitely abnormal. She is currently gravely ill and hypotensive. Given her initial poor prognosis from her Stage IV cancer and the fact that she was in the process of being worked up for her cancer she had been treated medically as any invasive cardiac interventions were contraindicate. At this point, given her underlying and widespread metastatic disease, any invasive cardiac procedures continue to be contraindicated as they are considered futile, furthermore, the patient is a DNR. Recommendations: -Continue with medical mangement. -Continue with support measures. -Will continue to follow with you. (2) GI bleed Qualifiers: GI bleed type/associated pathology: melena Qualified Code(s): K92.1 - Melena Is this a current diagnosis for this admission?: Yes
[2019-11-22] MEDS ORDERED: DOBUTAMINE HCL/D5W 500 MG/250 ML RTUINJ IV PRN (10:53)
--- NOTE | 2019-11-22 11:04 | Progress Note ---
Provider Note Provider Note: I have evaluated the case at Dr. Josue's request and agree with patient being comfort measures only.
[2019-11-22] MEDS ORDERED: MIDODRINE HCL 5 MG TABLET PO ONE ×2 (13:00→18:00)
[2019-11-22] MEDS ORDERED: HYOSCYAMINE SULFATE 0.125 MG TABLET PO PRN (16:59)
--- NOTE | 2019-11-22 17:10 | ADVANCED CARE ---
- Diagnosis (1) Lung cancer, primary, with metastasis from lung to other site Diagnosis Current: Yes (3) Acute respiratory failure with hypoxia Diagnosis Current: Yes (7) Non-ST elevation myocardial infarction (NSTEMI) Diagnosis Current: Yes Attendance: Myself, patient's primary nurse, patient and her son Mike Resuscitation Status: Do Not Resuscitate Discussion: Extensively discussed patient's current situation with all parties present and her son present via telephone on speaker. Explained her very poor prognosis with stage IV metastatic lung cancer, liver metastasis, and recent event of NSTEMI now with cardiogenic shock. Brought up the options for continued full treatment or hospice care with initiation of comfort measures. After extensive very thorough discussion, patient and her son both verbalized complete and clear understanding of the situation and very clearly opted for hospice. Patient's son will be traveling down from [place] via car today. I offered to inform patient's daughter myself but patient's son states that he will inform patient's daughter himself of the conversation. We will proceed with hospice care. In the meantime, will continue on oxygen supplementation and dobutamine drip to buy patient some time for patients on and daughter to arrive at hospital. Time Spent: 46 minutes
--- NOTE | 2019-11-22 17:16 | PDOC PROGRESS REPORT ---
Subjective Subjective:: Unfortunately patient started complaining of increased shortness of breath yesterday night and chest pain. Troponin was elevated. Patient has clearly suffered an NSTEMI with EKG changes and anterior lateral T wave inversions. This morning patient feels very fatigued and short of breath. Thorough conversation was had between patient and patient's son with myself and primary nurse present. Refer to ACP notes for details Reason For Visit: TAXOL/CARBO/KEYTRUDA/PIV Physical Exam Vital Signs: Temp Pulse Resp BP Pulse Ox 98.5 F 110 H 16 94/62 L 91 L 11/22/19 07:40 11/22/19 07:40 11/22/19 12:00 11/22/19 16:00 11/22/19 12:00 Intake & Output 11/21/19 11/22/19 11/23/19 06:59 06:59 06:59 Intake Total 1777.404 4 Output Total 1000 100 Balance 777.404 -100 4 Weight 61.9 kg 61.7 kg General appearance: PRESENT: no acute distress, cooperative Respiratory exam: PRESENT: accessory muscle use, crackles, tachypnea. ABSENT: symmetrical, wheezes Cardiovascular exam: PRESENT: +S1, +S2, tachycardia. ABSENT: bradycardia, diastolic murmur GI/Abdominal exam: PRESENT: soft, tenderness. ABSENT: rebound, rigid Neurological exam: PRESENT: alert, awake, oriented to person, oriented to place, oriented to time, oriented to situation Results Laboratory Results: 11/22/19 03:35 11/22/19 03:35 11/21/19 11/22/19 11/22/19 20:57 03:35 03:35 WBC 8.8 RBC 4.58 Hgb 12.3 Hct 38.4 MCV 84 MCH 26.8 L MCHC 32.0 RDW 18.4 H Plt Count 171 Seg Neutrophils % 93.0 H Carbonic Acid 1.34 HCO3/H2CO3 Ratio 21:1 ABG pH 7.43 ABG pCO2 44.5 ABG pO2 62.9 L ABG HCO3 29.0 H ABG O2 Saturation 92.6 L ABG Base Excess 4.1 FiO2 5L Sodium 136.6 L Potassium 4.9 Chloride 100 Carbon Dioxide 27 Anion Gap 10 BUN 36 H Creatinine 0.90 Est GFR ( Amer) > 60 Glucose 120 H Calcium 8.2 L Magnesium 2.0 Total Bilirubin 1.8 H AST 306 H Alkaline Phosphatase 749 H Total Protein 5.4 L Albumin 2.7 L 11/13/19 11/13/19 11/13/19 09:35 14:57 20:07 Creatine Kinase CK-MB (CK-2) Troponin I 0.161 0.166 0.152 NT-Pro-B Natriuret Pep 11/21/19 11/21/19 11/22/19 21:02 21:02 03:35 Creatine Kinase 77 62 CK-MB (CK-2) 12.80 H Troponin I 4.560 NT-Pro-B Natriuret Pep 92687 H 11/22/19 11/22/19 11/22/19 03:35 08:54 08:54 Creatine Kinase 56 CK-MB (CK-2) 8.54 H 5.61 H Troponin I 4.670 4.090 NT-Pro-B Natriuret Pep Impressions: Abdomen/Pelvis CT 11/13/19 09:31 IMPRESSION: 1. Mass in the right lung base recommend cc chest for further evaluation. Neoplasm is thought to be most likely. 2. Hepatomegaly with widespread metastatic disease throughout the liver. 3. Aortic adenopathy suspicious for metastatic disease. 4. Probable bony metastatic disease. Chest CT 11/14/19 00:00 IMPRESSION: 1. Irregular area of consolidation centered around the bronchi that extends from the hilum into the superior aspect of the right upper lobe and patchier peribronchial opacities scattered throughout the remainder of the right upper lobe and in the right middle, left lower, and left lower and left upper lobe. These opacities are nonspecific and differential to consider include multifocal pneumonia and lymphangitic carcinomatosis. 2. Probable pathologic compression fractures of the T10, T11 and L1 and L2 vertebral bodies. 3. Enlarged right hilar lymph node that measures 12 mm in short axis diameter. Head CT 11/14/19 00:00 IMPRESSION: No acute intracranial abnormality. EVIDENCE OF ACUTE STROKE: NO. Guidance Needle Placement CT 11/16/19 00:00 IMPRESSION: CT GUIDED TARGETED LIVER BIOPSY PERFORMED ABOVE. PATHOLOGY PENDING. NO IMMEDIATE COMPLICATIONS. Liver Biopsy CT 11/16/19 00:00 IMPRESSION: CT GUIDED TARGETED LIVER BIOPSY PERFORMED ABOVE. PATHOLOGY PENDING. NO IMMEDIATE COMPLICATIONS. Chest X-Ray 11/21/19 00:00 IMPRESSION: Compared to CT chest from a week ago, increased central infiltrates and possible effusions. Rule out superimposed edema. Previous right upper lung infiltrate appears improved. Assessment and Plan - Diagnosis (1) Non-ST elevation myocardial infarction (NSTEMI) Is this a current diagnosis for this admission?: Yes (2) Cardiogenic shock Is this a current diagnosis for this admission?: Yes (3) Lung cancer, primary, with metastasis from lung to other site Qualifiers: Laterality: right Qualified Code(s): C34.91 - Malignant neoplasm of unspecified part of right bronchus or lung Is this a current diagnosis for this admission?: Yes (4) Anemia Qualifiers: Iron deficiency anemia type: chronic blood loss Is this a current diagnosis for this admission?: Yes (5) Acute respiratory failure with hypoxia Is this a current diagnosis for this admission?: Yes (6) Anxiety Is this a current diagnosis for this admission?: Yes (7) Compression fracture of vertebrae Qualifiers: Encounter type: initial encounter Is this a current diagnosis for this admission?: Yes (8) Elevated LFTs Is this a current diagnosis for this admission?: Yes (9) Protein calorie malnutrition Qualifiers: Protein-calorie malnutrition severity: moderate Qualified Code(s): E44.0 - Moderate protein-calorie malnutrition Is this a current diagnosis for this admission?: Yes (10) GI bleed Qualifiers: GI bleed type/associated pathology: melena Qualified Code(s): K92.1 - Melena Is this a current diagnosis for this admission?: Yes - Plan Summary Summary: Unfortunately, last night patient clearly suffered an NSTEMI with elevation of troponin peaking at 4.6 and new anterior lateral T wave inversions. Was started on Lovenox and given aspirin. Cardiology was consulted. I have discussed the case with cardiology and presented options to patient, patient's son as well. At this point, we feel that given patient's poor prognosis with comorbid stage I V metastatic lung cancer, liver injury and now with cardiogenic shock from patient's NSTEMI, patient is a poor candidate for invasive cardiac interventions. I had a elaborate conversation with patient and patient's son and they have opted to proceed with hospice at this time. Awaiting son's arrival at the hospital. We will place on dobutamine drip and some p.o. Midodrine to help address hypotension until son and daughter arrive. We will maintain on DNR. No aggressive measures. - Time Time Spent with patient: 35 or more minutes
[2019-11-22] MEDS: MORPHINE SULFATE 10 MG/ML INJ IV PRN ×3 (17:43→23:40)
[2019-11-22] MEDS: LORAZEPAM INJ 2 MG/1 ML VIAL IV PRN (19:41)
[2019-11-22] MEDS: PHARMACY COMMUNICATION ORDER MC SCH (20:59)
--- NOTE | 2019-11-22 20:59 | EKG REPORT ---
SEVERITY:- ABNORMAL ECG - SINUS TACHYCARDIA LOW VOLTAGE IN FRONTAL LEADS ABNORMAL T, ISCHEMIA, ANT-LAT LEADS BORDERLINE PROLONGED QT INTERVAL : Confirmed by: Darlyn Ricketts MD 22-Nov-2019 20:59:06
--- NOTE | 2019-11-22 20:59 | EKG REPORT ---
SEVERITY:- ABNORMAL ECG - SINUS RHYTHM LEFT ATRIAL ABNORMALITY PROBABLE LEFT VENTRICULAR HYPERTROPHY ABNORMAL T, ISCHEMIA, ANT-LAT LEADS : nEW SINCE ekg OF 11/20/19 BORDERLINE PROLONGED QT INTERVAL : Confirmed by: Darlyn Ricketts MD 22-Nov-2019 20:58:31
[2019-11-22] MEDS ORDERED: ENOXAPARIN SODIUM INJ 60 MG/0.6 ML DISP.SYRIN SUBCUT SCH (23:15)
[2019-11-23] MEDS: MORPHINE SULFATE 10 MG/ML INJ IV PRN ×6 (03:30→23:01)
[2019-11-23] MEDS: MORPHINE SULFATE SR 15 MG TABLET PO SCH (05:10)
--- NOTE | 2019-11-23 07:49 | PDOC PROGRESS REPORT ---
Subjective Progress Note for:: 11/23/19 Subjective:: Now w/ agonal breathing, fully on comfort care. Son and daughter came to bedside yesterday and are at peace with decision pt made for comfort care, hospice. Seems comfortable this am. Reason For Visit: TAXOL/CARBO/KEYTRUDA/PIV Physical Exam Vital Signs: Temp Pulse Resp BP Pulse Ox 98.5 F 103 H 14 94/62 L 90 L 11/22/19 07:40 11/23/19 02:00 11/22/19 20:50 11/22/19 16:00 11/22/19 20:50 Intake & Output 11/22/19 11/23/19 11/24/19 06:59 06:59 06:59 Intake Total 74 Output Total 100 Balance -100 74 Weight 61.7 kg 60 kg Results Laboratory Results: 11/22/19 03:35 11/22/19 03:35 11/13/19 11/13/19 11/13/19 09:35 14:57 20:07 Creatine Kinase CK-MB (CK-2) Troponin I 0.161 0.166 0.152 NT-Pro-B Natriuret Pep 11/21/19 11/21/19 11/22/19 21:02 21:02 03:35 Creatine Kinase 77 62 CK-MB (CK-2) 12.80 H Troponin I 4.560 NT-Pro-B Natriuret Pep 64582 H 11/22/19 11/22/19 11/22/19 03:35 08:54 08:54 Creatine Kinase 56 CK-MB (CK-2) 8.54 H 5.61 H Troponin I 4.670 4.090 NT-Pro-B Natriuret Pep Impressions: Abdomen/Pelvis CT 11/13/19 09:31 IMPRESSION: 1. Mass in the right lung base recommend cc chest for further evaluation. Neoplasm is thought to be most likely. 2. Hepatomegaly with widespread metastatic disease throughout the liver. 3. Aortic adenopathy suspicious for metastatic disease. 4. Probable bony metastatic disease. Chest CT 11/14/19 00:00 IMPRESSION: 1. Irregular area of consolidation centered around the bronchi that extends from the hilum into the superior aspect of the right upper lobe and patchier peribronchial opacities scattered throughout the remainder of the right upper lobe and in the right middle, left lower, and left lower and left upper lobe. These opacities are nonspecific and differential to consider include multifocal pneumonia and lymphangitic carcinomatosis. 2. Probable pathologic compression fractures of the T10, T11 and L1 and L2 vertebral bodies. 3. Enlarged right hilar lymph node that measures 12 mm in short axis diameter. Head CT 11/14/19 00:00 IMPRESSION: No acute intracranial abnormality. EVIDENCE OF ACUTE STROKE: NO. Guidance Needle Placement CT 11/16/19 00:00 IMPRESSION: CT GUIDED TARGETED LIVER BIOPSY PERFORMED ABOVE. PATHOLOGY PE NDING. NO IMMEDIATE COMPLICATIONS. Liver Biopsy CT 11/16/19 00:00 IMPRESSION: CT GUIDED TARGETED LIVER BIOPSY PERFORMED ABOVE. PATHOLOGY PENDING. NO IMMEDIATE COMPLICATIONS. Chest X-Ray 11/21/19 00:00 IMPRESSION: Compared to CT chest from a week ago, increased central infiltrates and possible effusions. Rule out superimposed edema. Previous right upper lung infiltrate appears improved. Assessment & Plan - Diagnosis (1) Primary cancer of right upper lobe of lung Is this a current diagnosis for this admission?: Yes Plan: NO further rx planned, comfort care only (2) Pain, neoplasm-related Is this a current diagnosis for this admission?: Yes Plan: cont pain control - Time Time Spent with patient: Less than 15 minutes Disposition: Will sign off and follow peripherally, call w/ questions but expect pt to pass in next 24-48hrs
[2019-11-23] MEDS: LORAZEPAM INJ 2 MG/1 ML VIAL IV PRN ×2 (07:51→13:49)
[2019-11-23] MEDS: SENNOSIDES/DOCUSATE 8.6-50 MG 1 EACH TABLET PO SCH (09:40)
[2019-11-23] MEDS: LIDOCAINE 5% (700 MG) TRANSDERMAL ADH..PATCH TP SCH (09:40)
--- NOTE | 2019-11-23 17:41 | PDOC PROGRESS REPORT ---
Subjective Progress Note for:: 11/23/19 Subjective:: Patient is notably having very agonal breathing this morning. Obtunded. She likely will pass very soon. Reason For Visit: TAXOL/CARBO/KEYTRUDA/PIV Physical Exam Vital Signs: Temp Pulse Resp BP Pulse Ox 98.5 F 119 H 14 94/62 L 90 L 11/22/19 07:40 11/23/19 14:00 11/22/19 20:50 11/22/19 16:00 11/22/19 20:50 Intake & Output 11/22/19 11/23/19 11/24/19 06:59 06:59 06:59 Intake Total 74 Output Total 100 Balance -100 74 Weight 61.7 kg 60 kg Respiratory exam: PRESENT: unlabored, other - Agonal breathing shallow breaths GI/Abdominal exam: PRESENT: soft Neurological exam: PRESENT: altered. ABSENT: alert, awake Results Laboratory Results: 11/22/19 03:35 11/22/19 03:35 11/13/19 11/13/19 11/13/19 09:35 14:57 20:07 Creatine Kinase CK-MB (CK-2) Troponin I 0.161 0.166 0.152 NT-Pro-B Natriuret Pep 11/21/19 11/21/19 11/22/19 21:02 21:02 03:35 Creatine Kinase 77 62 CK-MB (CK-2) 12.80 H Troponin I 4.560 NT-Pro-B Natriuret Pep 24905 H 11/22/19 11/22/19 11/22/19 03:35 08:54 08:54 Creatine Kinase 56 CK-MB (CK-2) 8.54 H 5.61 H Troponin I 4.670 4.090 NT-Pro-B Natriuret Pep Impressions: Abdomen/Pelvis CT 11/13/19 09:31 IMPRESSION: 1. Mass in the right lung base recommend cc chest for further evaluation. Neoplasm is thought to be most likely. 2. Hepatomegaly with widespread metastatic disease throughout the liver. 3. Aortic adenopathy suspicious for metastatic disease. 4. Probable bony metastatic disease. Chest CT 11/14/19 00:00 IMPRESSION: 1. Irregular area of consolidation centered around the bronchi that extends from the hilum into the superior aspect of the right upper lobe and patchier peribronchial opacities scattered throughout the remainder of the right upper lobe and in the right middle, left lower, and left lower and left upper lobe. These opacities are nonspecific and differential to consider include multifocal pneumonia and lymphangitic carcinomatosis. 2. Probable pathologic compression fractures of the T10, T11 and L1 and L2 vertebral bodies. 3. Enlarged right hilar lymph node that measures 12 mm in short axis diameter. Head CT 11/14/19 00:00 IMPRESSION: No acute intracranial abnormality. EVIDENCE OF ACUTE STROKE: NO. Guidance Needle Placement CT 11/16/19 00:00 IMPRESSION: CT GUIDED TARGETED LIVER BIOPSY PERFORMED ABOVE. PATHOLOGY PENDING. NO IMMEDIATE COMPLICATIONS. Liver Biopsy CT 11/16/19 00:00 IMPRESSION: CT GUIDED TARGETED LIVER BIOPSY PERFORMED ABOVE. PATHOLOGY PENDING. NO IMMEDIATE COMPLICATIONS. Chest X-Ray 11/21/19 00:00 IMPRESSION: Compared to CT chest from a week ago, increased central infiltrates and possible effusions. Rule out superimposed edema. Previous right upper lung infiltrate appears improved. Assessment and Plan - Diagnosis (1) Non-ST elevation myocardial infarction (NSTEMI) Is this a current diagnosis for this admission?: Yes (2) Cardiogenic shock Is this a current diagnosis for this admission?: Yes (3) Lung cancer, primary, with metastasis from lung to other site Qualifiers: Laterality: right Qualified Code(s): C34.91 - Malignant neoplasm of unspecified part of right bronchus or lung Is this a current diagnosis for this admission?: Yes (4) Anemia Qualifiers: Iron deficiency anemia type: chronic blood loss Is this a current diagnosis for this admission?: Yes (5) Acute respiratory failure with hypoxia Is this a current diagnosis for this admission?: Yes (6) Anxiety Is this a current diagnosis for this admission?: Yes (7) Compression fracture of vertebrae Qualifiers: Encounter type: initial encounter Is this a current diagnosis for this admission?: Yes (8) Elevated LFTs Is this a current diagnosis for this admission?: Yes (9) Protein calorie malnutrition Qualifiers: Protein-calorie malnutrition severity: moderate Qualified Code(s): E44.0 - Moderate protein-calorie malnutrition Is this a current diagnosis for this admission?: Yes (10) GI bleed Qualifiers: GI bleed type/associated pathology: melena Qualified Code(s): K92.1 - Melena Is this a current diagnosis for this admission?: Yes - Plan Summary Summary: Unfortunately, last night patient clearly suffered an NSTEMI with elevation of troponin peaking at 4.6 and new anterior lateral T wave inversions. Was started on Lovenox and given aspirin. Cardiology was consulted. I have discussed the case with cardiology and presented options to patient, patient's son as well. At this point, we feel that given patient's poor prognosis with comorbid stage IV metastatic lung cancer, liver injury and now with cardiogenic shock from patient's NSTEMI, patient is a poor candidate for invasive cardiac interventions. I had a elaborate conversation with patient and patient's son and they have opted to proceed with hospice at this time. Awaiting son's arrival at the hospital. We will place on dobutamine drip and some p.o. Midodrine to help address hypotension until son and daughter arrive. We will maintain on DNR. No aggressive measures. 11/23/2019 Patient is having very shallow breaths with agonal breathing. She likely does not have very long left. We will continue with comfort measures and hospice. Morphine as needed for labored breathing, Ativan as needed for anxiety and Levsin for secretions. Patient was visited by her family specifically her daughter and son last night we were able to see their final goodbyes. Off all drips. Will continue to monitor closely. - Time Time Spent with patient: Less than 15 minutes
[2019-11-23 19:35] VITALS: BP 81/50
[2019-11-23] MEDS: PHARMACY COMMUNICATION ORDER MC SCH (21:18)
--- NOTE | 2019-11-24 07:36 | Death Summary ---
Summary Date : 11/24/19 Time of :: 01:06 Autopsy: No Resuscitation Status: Do Not Resuscitate - Final Diagnosis (1) Acute respiratory failure with hypoxia Is this a current diagnosis for this admission?: Yes (2) Cardiogenic shock Is this a current diagnosis for this admission?: Yes (3) Non-ST elevation myocardial infarction (NSTEMI) Is this a current diagnosis for this admission?: Yes (4) Stage IV adenocarcinoma of lung Is this a current diagnosis for this admission?: Yes (5) Anemia Is this a current diagnosis for this admission?: Yes (6) Metastases to the liver Is this a current diagnosis for this admission?: Yes (7) Anxiety Is this a current diagnosis for this admission?: Yes (8) Compression fracture of vertebrae Is this a current diagnosis for this admission?: Yes (9) Elevated LFTs Is this a current diagnosis for this admission?: Yes (10) Protein calorie malnutrition Is this a current diagnosis for this admission?: Yes (11) GI bleed Is this a current diagnosis for this admission?: Yes Hospital Course:: HPI according to admitting provider: 64 year old female As part of our work-up in the emergency room patient had a CT scan of the abdomen done which revealed a mass in the right lung base with neoplasm thought to be most likely. She also has hepatomegaly with widespread metastatic disease throughout the liver as well as aortic adenopathy and probable bony metastatic disease. Patient does admit to generalized aches and pain which has been progressively getting worse over the last 5 months or so. She is also lost weight. She has a 35+ year smoking history, smoking 1 pack daily. Patient also has not really seen a physician in years. She said she is really had no need to. She did not get her symptoms checked out earlier as she really did not know what was going on. Patient denied any overt bleeding except for the dark stool that she noticed 3 days ago according to her. Most see the accompanying planes appear to be the back pain as well as a abdominal pain to a lesser degree and a generalized pain. Hemoglobin of 8.7 today and noted also to have an elevated troponin. She also complains of some chest pain which waxes and wanes currently chest pain-free she has been seen by leaded glass installer and plan is for an EGD once stabilized. Cardiology consultation has also been sought due to her elevated troponin which likely is due to her anemia. Patient also tells me that she sometimes gets palpitations although she is currently in sinus tachycardia. Oncology consult will also be obtained. Hospital course Patient was admitted and evaluated for abdominal CT findings of multiple lesions in the liver suspected to be metastasis. She also underwent evaluation for melena and anemia via EGD which revealed 2 clean-based shallow ulcers in the stomach without active bleeding. Chest CT scan was done which revealed irregularly opacity extending from the hilum to the bronchi and involving the right upper lobe as well as enlarged hilar lymph node. This is suspected to be malignant. Patient continued to decompensate throughout the stay in the hospital. Liver biopsy revealed adenocarcinoma resembling lung as primary. It was believed that patient had lung adenocarcinoma which likely metastasized to the liver and also the T11 T10, L1 and L2 vertebral bodies which were noted to have pathologic compression fractures on CT. Patient was hypoxic and required oxygen supplementation. Extensive conversation was had between oncology and patient at the shared decision was made to proceed with chemotherapy. Patient received first cycle of chemo with paclitaxel, Keytruda and carboplatin. Unfortunately later in the hospital course patient developed an NSTEMI likely secondary to hypercoagulable state from patient stage IV lung cancer. Was evaluated by cardiology. She went to cardiogenic shock and worsening hypoxic respiratory failure. Extensive conversation was held between myself, patient, patient's son primary nurse present and patient opted to become be made hospice. Her wishes were respected. Patient was made comfortable. Patient was visited by her son and daughter who made their peace and said their goodbyes. Patient on 11/24/2019 at 1:06 AM.
== END 2019-11-24 03:30 | DRG 377 ==
LOC: ER 08:25 → EH 11:54 → 3S 15:43
PROVIDERS: ADMIT Internal Medicine; ATTEND Internal Medicine
PROC: 30233N1 Transfusion of Nonautologous Red Blood Cells into Peripheral Vein, Percutaneous Approach (ICD-10-PCS; 2019-11-14)
PROC: 0DB68ZX Excision of Stomach, Via Natural or Artificial Opening Endoscopic, Diagnostic (ICD-10-PCS; principal; 2019-11-15 09:00)
PROC: 0FB03ZX Excision of Liver, Percutaneous Approach, Diagnostic (ICD-10-PCS; 2019-11-16)
DX: K25.4 Chronic or unspecified gastric ulcer with hemorrhage (principal); J96.01 Acute respiratory failure with hypoxia; I21.A1 Myocardial infarction type 2; C78.7 Secondary malignant neoplasm of liver and intrahepatic bile duct; C79.51 Secondary malignant neoplasm of bone; C34.11 Malignant neoplasm of upper lobe, right bronchus or lung; C77.1 Secondary and unspecified malignant neoplasm of intrathoracic lymph nodes; M84.58XA Pathological fracture in neoplastic disease, other specified site, initial encounter for fracture; E44.0 Moderate protein-calorie malnutrition; I47.1 Supraventricular tachycardia; Z66 Do not resuscitate; R57.0 Cardiogenic shock; D63.0 Anemia in neoplastic disease; F41.9 Anxiety disorder, unspecified; D50.0 Iron deficiency anemia secondary to blood loss (chronic); K29.71 Gastritis, unspecified, with bleeding; K44.9 Diaphragmatic hernia without obstruction or gangrene; I35.0 Nonrheumatic aortic (valve) stenosis; G89.3 Neoplasm related pain (acute) (chronic); F17.210 Nicotine dependence, cigarettes, uncomplicated; Z79.82 Long term (current) use of aspirin; Z80.7 Family history of other malignant neoplasms of lymphoid, hematopoietic and related tissues; Z80.41 Family history of malignant neoplasm of ovary
CPT/HCPCS: 00731; 36415; 36430; 43239; 47000; 70450; 71045; 71260; 74177; 77012; 80048; 80053; 82270; 82550; 82553; 82607; 82728; 82746; 82803; 83540; 83550; 83735; 83880; 84466; 84484; 85025; 85027; 85045; 85610; 85730; 86850; 86900; 86901; 86920; 87635; 88305; 88313; 88341; 88342; 93005; 93010; 93306; 94667; 94668; 94799; 96361; 96367; 96374; 96375; 96413; 96415; 96417; 99291; C1887; C9113; J1100; J1170; J1200; J1250; J1453; J1650; J1940; J2060; J2250; J2270; J2405; J2469; J2704; J3010; J3360; J3490; J7040; J7050; J9045; J9267; J9271; P9016; S0028; S0119